=== PATIENT | female | born 1955 | race Caucasian/White ===

== ENCOUNTER 2016-11-17 21:18 | Observation (INO) | payer OTHER ==
[2016-11-17 21:18] VITALS: BMI 28.0
--- NOTE | 2016-11-17 22:43 | C.PDOC ---
History Of Present Illness 61 y/o female with PMHx of diabetes and ESRD, who is on dialysis, presents to ED with complaint of diffuse joint pain. Patient states that she typically uses a cream for her joint pains but is regularly uncomfortable despite doing so. Patient reports that her left knee hurt more than usual today with associated swelling. Denies trauma, rash, or fever. She notes that she is able to bend the knee with pain. Patient states she missed her dialysis treatment today due to leg pain. Time Seen by Provider: 11/17/16 22:31 Chief Complaint (Nursing): Lower Extremity Problem/Injury History Per: Patient History/Exam Limitations: no limitations Onset/Duration Of Symptoms: Hrs Current Symptoms Are (Timing): Still Present Recent travel outside of the [place]: No Past Medical History Reviewed: Historical Data, Nursing Documentation, Vital Signs Vital Signs: Last Vital Signs Temp 98.1 F 11/17/16 21:28 Pulse 65 11/18/16 01:04 Resp 18 11/18/16 01:04 BP 170/74 H 11/18/16 01:04 Pulse Ox 98 11/18/16 01:04 - Medical History PMH: Anemia, Asthma, Cardia Arrhythmia, Depression, Diabetes, Gastritis, HTN, Hypercholesterolemia, Hypothyroidism, End Stage Renal Disease, Chronic Kidney Disease, Sleep Apnea Surgical History: Cholecystectomy - [facility] Procedures DRAINAGE OF VULVA, OPEN APPROACH (11/05/15) EXCIS DEBRIDE OF WOUND, INFECT, OR BURN (11/09/14) HEMODIALYSIS (11/09/14) INCIS PERIANAL ABSCESS (11/09/14) PERFORMANCE OF URINARY FILTRATION, MULTIPLE (05/16/16) PERFORMANCE OF URINARY FILTRATION, SINGLE (04/04/16) Family History: States: Unknown Family Hx, Diabetes - Social History Hx Tobacco Use: No Hx Alcohol Use: No Hx Substance Use: No - Immunization History Hx Tetanus Toxoid Vaccination: Yes Hx Influenza Vaccination: Yes (2015) Hx Pneumococcal Vaccination: Yes (2016) Review Of Systems Except As Marked, All Systems Reviewed And Found Negative. Constitutional: Negative for: Fever, Chills Cardiovascular: Negative for: Chest Pain Respiratory: Negative for: Cough, Shortness of Breath, Wheezing Musculoskeletal: Positive for: Other (Left knee pain) Skin: Negative for: Rash Neurological: Negative for: Weakness, Numbness Physical Exam - Physical Exam Appears: Non-toxic, No Acute Distress Skin: Warm, Dry, No Rash Head: Atraumatic, Normacephalic Chest: Symmetrical Cardiovascular: Rhythm Regular Respiratory: Normal Breath Sounds, No Rales, No Rhonchi, No Wheezing Gastrointestinal/Abdominal: Soft, No Tenderness Back: Normal Inspection Extremity: Capillary Refill (< 2 sec. ), No Deformity, Swelling (L knee), Other (Arthritic changes to bilateral knees. (+) Suprapatellar effusion left knee. Left knee skin is dry, yellowish color, no rash.) Neurological/Psych: Oriented x3, Normal Speech, Normal Cognition, Normal Motor, Normal Sensation ED Course And Treatment - Laboratory Results Result Diagrams: 11/17/16 23:37 11/17/16 23:37 Lab Interpretation: Abnormal (Elevated K+5.3 with BUN 66, Cr 7.6) O2 Sat by Pulse Oximetry: 99 (RA) Pulse Ox Interpretation: Normal - Other Rad Left knee X-Ray: Interpreted by Me Interpretation: Degenerative arthritic changes with large suprapatellar effusion Progress Note: Bloodwork, Left knee x-rays ordered and reviewed. Reevaluation Time: 00:41 Reassessment Condition: Unchanged - Physician Consult Information Time Consulting Physician Contacted: 00:39 Physician Contacted: Giacomo Thorne Outcome Of Conversation: Patient to be admitted for dialysis and evaluation of knee effusion. Disposition - Disposition Disposition: HOSPITALIZED Disposition Time: 00:41 Condition: STABLE - POA Present On Arrival: None - Clinical Impression Clinical Impression: ESRD on hemodialysis, Knee effusion, left, Arthritis - Scribe Statement The provider has reviewed the documentation as recorded by the Barry Dupree Provider Attestation: Provider Scribe Attestation: All medical record entries made by the Barry were at my direction and personally dictated by me. I have reviewed the chart and agree that the record accurately reflects my personal performance of the history, physical exam, medical decision making, and the department course for this patient. I have also personally directed, reviewed, and agree with the discharge instructions and disposition.
[2016-11-17 23:39] LABS: BASO # 0.1 K/uL (0.0-0.2); EOS # 0.4 K/uL (0.0-0.7); EOS % 3.8 % (0.0-4.0); HEMATOCRIT 31.7 % (34.0-47.0); LYMPH # 2.1 K/uL (1.0-4.3); LYMPH % 22.2 % (20.0-40.0); MEAN CELL VOLUME 86.9 fL (81.0-99.0); MEAN CORPUSCULAR HGB CONC 32.3 g/dL (33.0-37.0); MEAN PLATELET VOLUME 9.9 fL (7.2-11.7); MONO # 0.7 K/uL (0.0-0.8); MONO % 7.7 % (0.0-10.0); RED CELL DISTRIBUTION WIDTH 15.3 % (11.5-14.5)
[2016-11-17 23:44] LABS: WHITE BLOOD COUNT 9.4 K/uL (4.8-10.8)
[2016-11-17 23:58] LABS: POTASSIUM 5.3 mmol/L (3.6-5.2)
[2016-11-18] LABS: BILIRUBIN,TOTAL 0.6 mg/dL (0.2-1.3)
[2016-11-18 00:01] LABS: ALB/GLOB RATIO 1.1 (1.0-2.1); CALCIUM 9.1 mg/dl (8.6-10.4); TOTAL PROTEIN 7.4 g/dL (6.3-8.3)
--- NOTE | 2016-11-18 03:40 | CP.PCM.HP ---
<Raven Salazar - Last Filed: 11/18/16 03:28> History of Present Illness - History of Present Illness History of Present Illness: CC: "L knee pain" HPI: Patient is a 61F with medical history of ESRD on HD who presents to the ED complaining of L knee pain and swelling. Patient states she has suffered from bilateral shoulder and knee pain for 3-4 months which has become increasingly more severe. Patient reports new onset left knee swelling this afternoon and associated 8/10 pain disabling her from ambulating. Patient denies any trauma to the area. She typically walks without assistance but admits to difficulty with mobility and inability to use a cane due to limited range of motion to upper extremities and weakness to right side following CVA. Due to inability to walk, patient missed hemodialysis today. Her regular dialysis schedule is [facility]. She denies fever, chills, chest pain, shortness of breath, abdominal pain, nausea, vomiting, constipation, diarrhea, and urinary symptoms. Patient admits to weakness following dialysis. She also states she has loss of appetite and has lost over 100 pounds in the past year. PMD: cannot recall Spool Maker: Dr. Umberto Pina PMH: ESRD on HD, chronic shoulder and knee pain, DMII, HTN, CVA with R hemiparesis, CAD, HLD, Hypothyroidism, Asthma, Sleep Apnea Medications: Norvasc 5 mg po qd, Lisinopril 20 mg po daily, Hydralazine 50 mg po TID, Carvedilol 12.5 mg po BID, Isosorbide 60 mg po 0900, Minoxidil 2.5 mg po 0900, 2200, ASA 81 mg po daily, Sevelamer 3 mg po TID, Levothyroxine 100 mcg po daily, Monteleukast 1 mg po daily, Omeprazole 40 mg po daily Family Hx: Mother - on [place] in 40s Surgical Hx: L arm fistula, cholecystectomy, total abdominal hysterectomy and b/ l oopherectomy Social: Never smoker. Denies alcohol and illicit drug use. Present on Admission - Present on Admission Any Indicators Present on Admission: No History of DVT/PE: No History of Uncontrolled Diabetes: Yes Urinary Catheter: No Decubitus Ulcer Present: No Review of Systems - Constitutional Constitutional: Weight Loss, Weakness. absent: Chills, Fever - EENT Eyes: absent: Change in Vision Nose/Mouth/Throat: absent: Nasal Congestion, Post Nasal Drip, Dysphagia - Cardiovascular Cardiovascular: absent: Chest Pain, Dyspnea, Leg Edema - Respiratory Respiratory: Snoring. absent: Dyspnea, Dyspnea on Exertion, Wheezing - Gastrointestinal Gastrointestinal: Heartburn. absent: Abdominal Pain, Bloating, Constipation, Diarrhea, Melena, Nausea, Vomiting - Genitourinary Genitourinary: absent: Change in Urinary Stream, Dysuria - Musculoskeletal Musculoskeletal: Arthralgias, Joint Swelling, Muscle Cramps - Integumentary Integumentary: absent: Changing Lesions, New Lesions - Neurological Neurological: Weakness. absent: Paresthesias - Psychiatric Psychiatric: Depression. absent: Anxiety Past Patient History - Infectious Disease Hx of Infectious Diseases: None - Tetanus Immunizations Tetanus Immunization: Unknown - Past Medical History & Family History Past Medical History?: Yes - Past Social History Smoking Status: Never Smoked - CARDIAC Hx Cardia Arrhythmia: Yes Hx Hypercholesterolemia: Yes Hx Hypertension: Yes - PULMONARY Hx Asthma: Yes Hx Sleep Apnea: Yes - NEUROLOGICAL Hx Neurological Disorder: Yes HX Cerebrovascular Accident: Yes (CVA c R hemiparesis 2010) - HEENT Hx HEENT Problems: Yes Other/Comment: uses eyeglasses - RENAL Hx Chronic Kidney Disease: Yes - ENDOCRINE/METABOLIC Hx Hypothyroidism: Yes - HEMATOLOGICAL/ONCOLOGICAL Hx Anemia: Yes - INTEGUMENTARY Hx Dermatological Problems: No - MUSCULOSKELETAL/RHEUMATOLOGICAL Hx Falls: No - GASTROINTESTINAL Hx Gastritis: Yes - GENITOURINARY/GYNECOLOGICAL Hx Genitourinary Disorders: No (She has MERCEDEZ BSO) Other/Comment: ESRD - PSYCHIATRIC Hx Depression: Yes Hx Substance Use: No - SURGICAL HISTORY Hx Cholecystectomy: Yes - ANESTHESIA Hx Anesthesia: Yes Hx Anesthesia Reactions: No Hx Malignant Hyperthermia: No Meds Allergies/Adverse Reactions: Allergies Allergy/AdvReac Type Severity Reaction Status Date / Time No Known Allergies Allergy Verified 05/19/16 18:03 Physical Exam - Constitutional Appears: Non-toxic, No Acute Distress - Head Exam Head Exam: ATRAUMATIC, NORMAL INSPECTION, NORMOCEPHALIC - Eye Exam Eye Exam: EOMI, Normal appearance, PERRL - ENT Exam ENT Exam: Mucous Membranes Moist - Neck Exam Neck exam: Positive for: Normal Inspection, Tenderness - Respiratory Exam Respiratory Exam: Clear to Auscultation Bilateral, NORMAL BREATHING PATTERN. absent: Accessory Muscle Use, Rales, Rhonchi, Wheezes - Cardiovascular Exam Cardiovascular Exam: +S1, +S2, Systolic Murmur. absent: Tachycardia - GI/Abdominal Exam GI & Abdominal Exam: Normal Bowel Sounds, Soft. absent: Distended, Firm, Guarding - Extremities Exam Extremities exam: Positive for: tenderness, pedal pulses present Additional comments: right sided weakness L suprapatellar pain to palpation and edema, limited ROM - Back Exam Back exam: NORMAL INSPECTION, tenderness - Neurological Exam Neurological exam: Alert, Oriented x3 - Psychiatric Exam Psychiatric exam: Normal Affect, Normal Mood - Skin Skin Exam: Intact, Normal Color Results - Vital Signs Recent Vital Signs: Last Vital Signs Temp 97.9 F 11/18/16 02:37 Pulse 66 11/18/16 02:37 Resp 20 11/18/16 02:37 BP 169/97 H 11/18/16 02:37 Pulse Ox 98 11/18/16 02:37 - Labs Result Diagrams: 11/17/16 23:37 11/17/16 23:37 Assessment & Plan - Assessment and Plan (Free Text) Assessment: 1. ESRD on hemodialysis, missed today Potassium 5.3 BUN/CR 66/7.9 Schedule for HD tomorrow Consulted Spool Maker, Dr. Pina, help appreciated 2. L Suprapatellar Effusion L Knee X-RAY: Degenerative arthritic changes with large suprapatellar effusion Tylenol 650 mg po PRN for pain Consulted Othropedic, Dr. Bolivar. Help appreciated. f/u recs 3. DMII f/u hemoglobin a1c RISS Accuchecks Monitor sugar 4. CAD Continue home medications: Carvidolol 12.5 mg po BID ASA 81 mg po daily Lisinopril 20 mg po daily Isosorbide mononitrate 60 mg po 0900 f/u lipid panel 5. Hypertension Continue home medications: Hydralazine 50 mg po TID Norvasc 5 mg po daily Minoxidil 2.5 mg po 0900,2200 Monitor 6. Hypothyroidism Continue home medication Levothyroxine 100 mcg po daily f/u TSH, T4 7. Asthma Continue home medication Monteleukast Duoneb RQH PRN for shortness of breath 8. GERD Protonix 40 mg po daily 9. Sleep Apnea CPAP at night 10. Prophylaxis SCD Protonix Heparin 5000 U SC Q12 - Date & Time Date: 11/18/16 Time: 04:04 <Giacomo Thorne - Last Filed: 11/18/16 06:38> Results - Vital Signs Recent Vital Signs: Last Vital Signs Temp 97.9 F 11/18/16 02:37 Pulse 66 11/18/16 02:37 Resp 20 11/18/16 03:46 BP 169/97 H 11/18/16 02:37 Pulse Ox 98 11/18/16 02:37 - Labs Result Diagrams: 11/17/16 23:37 11/17/16 23:37 Assessment & Plan - Date & Time Date: 11/18/16 (I have seen and examined the patient. I agree with the findings and plan of care as documented by Dr. Salazar. Patient with ESRD dependent upon dialysis. Missed scheduled dialysis due to knee pain coming from left knee effusion. Consult ortho. Consult nephro for dialysis. Monitor for acute changes.) Time: 06:37 Attending/Attestation - Attestation I have personally seen and examined this patient.: Yes I have fully participated in the care of the patient.: Yes I have reviewed all pertinent clinical information: Yes
[2016-11-18] MEDS: Levothyroxine 100 MCG TAB PO SCH (05:46)
[2016-11-18 08:08] LABS: BASO # 0.1 K/uL (0.0-0.2); BASO % 1.2 % (0.0-2.0); EOS # 0.5 K/uL (0.0-0.7); EOS % 4.1 % (0.0-4.0); HEMATOCRIT 29.3 % (34.0-47.0); LYMPH # 3.6 K/uL (1.0-4.3); MEAN CELL VOLUME 86.6 fL (81.0-99.0); MEAN CORPUSCULAR HEMOGLOBIN 27.9 pg (27.0-31.0); MEAN CORPUSCULAR HGB CONC 32.3 g/dL (33.0-37.0); MEAN PLATELET VOLUME 10.7 fL (7.2-11.7); MONO # 0.9 K/uL (0.0-0.8); MONO % 8.2 % (0.0-10.0); NRBC % 0.2 % (0.0-2.0); RED CELL DISTRIBUTION WIDTH 15.3 % (11.5-14.5); WHITE BLOOD COUNT 11.3 K/uL (4.8-10.8)
[2016-11-18 08:17] LABS: POTASSIUM 5.2 mmol/L (3.6-5.2)
--- NOTE | 2016-11-18 08:17 | CP.PCM.CON ---
History of Present Illness - History of Present Illness History of Present Illness: 61F complains of acute onset of left knee pain and swelling a few days ago. She had not had swelling like this is her knee before. She denies any history of gout. She denies any recent trauma or falls or injury to left knee. She has chronic pain in her shoulders and knees, but never like this before. She has right sided weakness from CVA. Denies fever/chills. Denies CP/SOB/dizziness. Denies swelling in other joints. Review of Systems - Review of Systems All systems: reviewed and no additional remarkable complaints except - Constitutional Constitutional: As Per HPI - EENT Additional comments: denies nosebleeds or bleeding gums - Cardiovascular Cardiovascular: As Per HPI - Respiratory Respiratory: As Per HPI - Gastrointestinal Additional comments: denies n/v/bloody stools - Musculoskeletal Musculoskeletal: As Per HPI - Integumentary Additional comments: no bleeding lesions - Neurological Neurological: As Per HPI - Psychiatric Psychiatric: Depression - Hematologic/Lymphatic Hematologic: absent: As Per HPI, Easy Bleeding, Easy Bruising, Lymphadenopathy, Other Past Patient History - Infectious Disease Hx of Infectious Diseases: None - Tetanus Immunizations Tetanus Immunization: Unknown - Past Medical History & Family History Past Medical History?: Yes Past Family History: Reviewed and not pertinent - Past Social History Smoking Status: Never Smoked Drugs: Denies - CARDIAC Hx Cardia Arrhythmia: Yes Hx Hypercholesterolemia: Yes Hx Hypertension: Yes - PULMONARY Hx Asthma: Yes Hx Sleep Apnea: Yes - NEUROLOGICAL Hx Neurological Disorder: Yes HX Cerebrovascular Accident: Yes (CVA c R hemiparesis 2010) - HEENT Hx HEENT Problems: Yes Other/Comment: uses eyeglasses - RENAL Hx Chronic Kidney Disease: Yes Hx Dialysis: Yes Hx Renal Failure: Yes (ESRD) - ENDOCRINE/METABOLIC Hx Hypothyroidism: Yes - HEMATOLOGICAL/ONCOLOGICAL Hx Anemia: Yes - INTEGUMENTARY Hx Dermatological Problems: No - MUSCULOSKELETAL/RHEUMATOLOGICAL Hx Arthritis: Yes Hx Falls: No - GASTROINTESTINAL Hx Gastritis: Yes - GENITOURINARY/GYNECOLOGICAL Hx Genitourinary Disorders: No (She has MERCEDEZ BSO) Other/Comment: ESRD - PSYCHIATRIC Hx Depression: Yes Hx Substance Use: No - SURGICAL HISTORY Hx Surgeries: Yes Hx Cholecystectomy: Yes Hx Hysterectomy: Yes Hx Vascular Access Device: Yes (L arm fistula) - ANESTHESIA Hx Anesthesia: Yes Hx Anesthesia Reactions: No Hx Malignant Hyperthermia: No Meds Allergies/Adverse Reactions: Allergies Allergy/AdvReac Type Severity Reaction Status Date / Time No Known Allergies Allergy Verified 05/19/16 18:03 - Medications Medications: Current Medications Acetaminophen (Tylenol 325mg Tab) 650 mg PO Q6 PRN PRN Reason: Pain, moderate (4-7) Last Admin: 11/18/16 05:46 Dose: 650 mg Amlodipine Besylate (Norvasc) 5 mg PO DAILY [facility] Aspirin (Aspirin Chewable) 81 mg PO DAILY [facility] Carvedilol (Coreg) 12.5 mg PO BID [facility] Heparin Sodium (Porcine) (Heparin) 5,000 units SC Q12 [facility] Hydralazine HCl (Apresoline) 50 mg PO TID [facility] Insulin Human Regular (Novolin R) 0 unit SC ACHS [facility] PRN Reason: Protocol Isosorbide Mononitrate (Imdur) 60 mg PO 0900 [facility] Levothyroxine Sodium (Synthroid) 100 mcg PO DAILY@0630 [facility] Last Admin: 11/18/16 05:46 Dose: 100 mcg Lisinopril (Zestril) 20 mg PO DAILY [facility] Minoxidil (Minoxidil) 2.5 mg PO 0900,2200 [facility] Montelukast Sodium (Singulair) 10 mg PO DAILY [facility] Pantoprazole Sodium (Protonix Ec Tab) 40 mg PO DAILY [facility] Sevelamer Carbonate (Renvela) 3 mg PO TID [facility] Physical Exam - Constitutional Appears: Well, No Acute Distress - Head Exam Head Exam: ATRAUMATIC, NORMAL INSPECTION - Eye Exam Eye Exam: Normal appearance - ENT Exam ENT Exam: Mucous Membranes Moist - Neck Exam Neck exam: Positive for: Full Rom, Normal Inspection - Respiratory Exam Respiratory Exam: NORMAL BREATHING PATTERN - Cardiovascular Exam Additional comments: LLE: +DP/PT pulses calves soft NT neg homans - Extremities Exam Additional comments: Limited ROM due to pain > 40 degrees flexion left knee, sig valgus alignment - Expanded Lower Extremities Exam Left Hip exam: full ROM, normal inspection Knee exam: effusion, full knee extension, tenderness. absent: abrasion, anterior draw sign, crepitus, deformity, dislocation, ecchymosis, erythema, full ROM, laceration, pain/laxity with valgus, pain/laxity with varus, posterior draw sign, swelling, normal inspection Lower Leg Exam: normal inspection. absent: deformity, Dhara's sign, swelling, tenderness Ankle exam: FULL ROM, NORMAL INSPECTION Neuro vacular tendon exam: no vascular compromise Gait: not tested/not observed - Neurological Exam Neurological exam: Alert, Oriented x3 Additional comments: sensation intact - Psychiatric Exam Psychiatric exam: Normal Affect, Normal Mood - Skin Skin Exam: Intact, Normal Color Additional comments: No erythema Results - Vital Signs Recent Vital Signs: Last Vital Signs Temp 97.9 F 11/18/16 02:37 Pulse 66 11/18/16 02:37 Resp 20 11/18/16 03:46 BP 169/97 H 11/18/16 02:37 Pulse Ox 98 11/18/16 02:37 - Labs Result Diagrams: 11/18/16 08:00 11/18/16 08:00 Labs: Laboratory Results - last 24 hr 11/18/16 07:39 POC Glucose (mg/dL) 81 - Impressions Impression: atient Name / ID : ROSAS BOLES / [id number] Exam Date : 11/17/2016 22:35:33 ( Approved ) Study Comment : Sex / Age : F / 61Y Creator : Magui Stubbs V. Dictator : Magui Stubbs V. Profile Saw Operator : Physical Education Specialist : Magui Stubbs V. Approver2 : Report Date : 11/18/2016 08:29:37 My Comment : PROCEDURE: Left Knee Radiographs. HISTORY: Pain. COMPARISON: None. FINDINGS: BONES: No fracture. Generalized osteopenia. Tricompartmental joint space narrowing - lateral femoral tibial compartment most notably affected. Here, diffuse subchondral cystic changes and few were tibial plateau subchondral sclerosis suggested. Diffuse osteophytosis. Varus orientation JOINTS: Osteoarthrosis JOINT EFFUSION: Yes OTHER FINDINGS: Atherosclerotic vascular calcifications IMPRESSION: Osteopenia, osteoarthrosis and joint effusion. Atherosclerotic vascular disease Procedures - Joint Aspiration/Injection Joint #1 Consent Obtained: Verbal Consent Time Out Performed: Yes Side of Body: Left Joint Aspirated: Knee Ultrasound Guidance Used: No Skin Prep: Chlorprep Local Anesthesia Used: Other (none) Needle Size Used: Other (21g 1 1/2 in) Fluid Clarity: Bloody Total Fluid Removed (mls): 15 Patient Tolorated Procedure: Well Complications: None Additional comments: Knee arthrocentesis: Risks, benefits, alternatives of knee arthrocentesis and aspiration were explained in detail, patient verbally consented to procedure. The patient's left knee was prepped in the usual sterile fashion with chloroprep. A 21-gauge 1.5 inch needle was inserted into the knee joint from a superior lateral approach. Through this needle 15 cc of dark bloody fluid was aspirated, and sent for stat cell count, crystals, gram stain, culture and sensitivity. The needle was removed, and sterile dressing, indigo bandage, and ice were applied to knee. Patient tolerated the procedure well. There were no complications. Assessment/Plan - Consults Consult Orders: Consultations 11/18/16 08:00 Nursing Referral for Palliative Care Routine Comment: Physician Instructions: Reason For Exam: score - 4 - Problems Patient Problems: Problem List (Active/Current) Problem Status Priority Diagnosed Code Arthritis Acute M19.90 ESRD on hemodialysis Acute N18.6 Knee effusion, left Acute M25.462 Assessment and Plan (1) Knee effusion, left Assessment & Plan: 1. Left knee acute effusion 2. SEVERE left knee DJD 3. Left knee valgus deformity labs reviewed, no leukocytosis or fever, serum uric acid nL normal platelets and PT/PTT no blood thinners at home unclear etiology of bloody fluid, clean tap r/o gout/infection/OA exacerbation/occult injury (however patient denies trauma or falls)/hemarthrosis f/u aspirate results d/w Dr. Bolivar, agrees with above Status: Acute
[2016-11-18 08:20] LABS: BILIRUBIN,TOTAL 0.6 mg/dL (0.2-1.3); CALCIUM 8.7 mg/dl (8.6-10.4); PHOSPHOROUS 5.4 mg/dL (2.5-4.5); TOTAL PROTEIN 6.7 g/dL (6.3-8.3)
[2016-11-18 08:21] LABS: IRON 123 ug/dL (37-170); MAGNESIUM 2.4 mg/dL (1.6-2.3)
--- NOTE | 2016-11-18 08:31 | RAD ---
PROCEDURE: Left Knee Radiographs. HISTORY: Pain. COMPARISON: None. FINDINGS: BONES: No fracture. Generalized osteopenia. Tricompartmental joint space narrowing -lateral femoral tibial compartment most notably affected. Here, diffuse subchondral cystic changes and few were tibial plateau subchondral sclerosis suggested. Diffuse osteophytosis. Varus orientation JOINTS: Osteoarthrosis JOINT EFFUSION: Yes OTHER FINDINGS: Atherosclerotic vascular calcifications IMPRESSION: Osteopenia, osteoarthrosis and joint effusion. Atherosclerotic vascular disease
[2016-11-18 08:38] LABS: T4 5.72 ug/dL (5.5-11.0)
[2016-11-18] MEDS: (Novolin R) Insulin Human Regular 100 units/ml vial SC SCH ×4 (08:50→21:39)
[2016-11-18 08:51] LABS: THYROID STIMULATING HORMONE 5.01 mIU/L (0.46-4.68)
[2016-11-18 08:59] LABS: FLUID TYPE SYNOVIAL FLUID
[2016-11-18 09:26] LABS: FOLATE 16.8 ng/mL
--- NOTE | 2016-11-18 10:01 | CP.PCM.PN ---
<Jesús Bourne - Last Filed: 11/18/16 21:21> Subjective - Date & Time of Evaluation Date of Evaluation: 11/18/16 Time of Evaluation: 07:15 - Subjective Subjective: PGY1 Medicine Note - Dr. Schilling (covering for Dr. Teresa) Patient seen and examined at bedside. No overnight events per nursing. Patient reports 8/10 left knee pain. Denies recent trauma to left knee. Reports chronic pain in her shoulders and knees. Reports right sided weakness from CVA. Pt reports BP drops during dialysis, so she holds her BP meds on those days. Dialysis typically 3.5hrs long. Denies f/c, chest pain, SOB, abdominal pain, n/v , d/c, or any additional complaints. Objective - Vital Signs/Intake and Output Vital Signs (last 24 hours): Temp Pulse Resp BP Pulse Ox 97.5 F L 65 20 190/84 H 99 11/18/16 08:00 11/18/16 08:00 11/18/16 08:00 11/18/16 08:00 11/18/16 08:00 Intake and Output: 11/18/16 11/18/16 06:59 18:59 Intake Total 400 Balance 400 - Medications Medications: Current Medications Acetaminophen (Tylenol 325mg Tab) 650 mg PO Q6 PRN PRN Reason: Pain, moderate (4-7) Last Admin: 11/18/16 05:46 Dose: 650 mg Amlodipine Besylate (Norvasc) 5 mg PO DAILY [facility] Aspirin (Aspirin Chewable) 81 mg PO DAILY [facility] Carvedilol (Coreg) 12.5 mg PO BID [facility] Heparin Sodium (Porcine) (Heparin) 5,000 units SC Q12 [facility] Hydralazine HCl (Apresoline) 50 mg PO TID [facility] Insulin Human Regular (Novolin R) 0 unit SC ACHS [facility] PRN Reason: Protocol Last Admin: 11/18/16 08:50 Dose: Not Given Isosorbide Mononitrate (Imdur) 60 mg PO 0900 [facility] Levothyroxine Sodium (Synthroid) 100 mcg PO DAILY@0630 [facility] Last Admin: 11/18/16 05:46 Dose: 100 mcg Lisinopril (Zestril) 20 mg PO DAILY [facility] Minoxidil (Minoxidil) 2.5 mg PO 0900,2200 [facility] Montelukast Sodium (Singulair) 10 mg PO DAILY [facility] Pantoprazole Sodium (Protonix Ec Tab) 40 mg PO DAILY [facility] Sevelamer Carbonate (Renvela) 2,400 mg PO TID [facility] - Labs Labs: 11/18/16 08:00 11/18/16 08:00 PT 10.9 SECONDS (9.7-12.2) 11/18/16 00:49 INR 1.0 11/18/16 00:49 APTT 32 SECONDS (21-34) 11/18/16 00:49 - Additional Findings Additional findings: - Constitutional Appears: Non-toxic, No Acute Distress - Head Exam Head Exam: ATRAUMATIC, NORMAL INSPECTION, NORMOCEPHALIC - Eye Exam Eye Exam: EOMI, Normal appearance, PERRL - ENT Exam ENT Exam: Mucous Membranes Moist - Neck Exam Neck exam: Positive for: Normal Inspection, Tenderness - Respiratory Exam Respiratory Exam: Clear to Auscultation Bilateral, NORMAL BREATHING PATTERN. absent: Accessory Muscle Use, Rales, Rhonchi, Wheezes - Cardiovascular Exam Cardiovascular Exam: +S1, +S2, Systolic Murmur. absent: Tachycardia - GI/Abdominal Exam GI & Abdominal Exam: Normal Bowel Sounds, Soft. absent: Distended, Firm, Guarding - Extremities Exam Extremities exam: Positive for: tenderness, pedal pulses present Additional comments: right sided weakness (from CVA) L suprapatellar pain to palpation and edema, limited ROM - Back Exam Back exam: NORMAL INSPECTION, tenderness - Neurological Exam Neurological exam: Alert, Oriented x3 - Psychiatric Exam Psychiatric exam: Normal Affect, Normal Mood - Skin Skin Exam: Intact, Normal Color Assessment and Plan - Assessment and Plan (Free Text) Assessment: 1. ESRD 11/18: received HD today. HD Schedule MWF- missed 11/17 Potassium 5.3 BUN/CR 66/7.9 Consulted [employer] Systems Analyst Consultant, Dr. Pina, help appreciated 2. L Suprapatellar Effusion L Knee X-RAY: Degenerative arthritic changes with large suprapatellar effusion Tylenol 650 mg po PRN for pain Consulted Othropedic, Dr. Bolivar. Help appreciated. f/u recs gram stain few WBC and no organisms fluid cell count WBC 2561 77% polys RBC [id number] negative crystals not consistent with infection or gout consistent with hemarthrosis, unclear etiology no orthopedic intervention indicated at this time PT/OT 11/19 (limit weight bearing due to pain at this time) f/u cultures 3. DMII hemoglobin a1c - 6.6 RISS Accuchecks Monitor sugar 4. CAD Continue home medications: Carvidolol 12.5 mg po BID ASA 81 mg po daily Lisinopril 20 mg po daily Isosorbide mononitrate 60 mg po 0900 f/u lipid panel - triglyc 271H, Cholest 132, LDL45, HDL25 5. Hypertension Continue home medications: Hydralazine 50 mg po TID Norvasc 5 mg po daily Minoxidil 2.5 mg po 0900,2200 [facility] 6. Hypothyroidism Continue home medication Levothyroxine 100 mcg po daily f/u TSH 5H, T4 5.72 N 7. Asthma Continue home medication Monteleukast Duoneb RQH PRN for shortness of breath 8. GERD Protonix 40 mg po daily 9. Sleep Apnea CPAP at night 10. Prophylaxis SCD Protonix Heparin 5000 U SC Q12 <Morgan Schilling - Last Filed: 12/14/16 22:12> Objective - Vital Signs/Intake and Output Vital Signs (last 24 hours): Temp Pulse Resp BP Pulse Ox 97.8 F 70 20 180/79 H 99 11/19/16 17:00 11/19/16 17:00 11/19/16 17:00 11/19/16 17:10 11/19/16 17:00 - Labs Labs: 11/19/16 07:40 11/19/16 07:40 PT 10.9 SECONDS (9.7-12.2) 11/18/16 00:49 INR 1.0 11/18/16 00:49 APTT 32 SECONDS (21-34) 11/18/16 00:49 Attending/Attestation - Attestation I have personally seen and examined this patient.: Yes I have fully participated in the care of the patient.: Yes I have reviewed all pertinent clinical information, including history, physical exam and plan: Yes
[2016-11-18 10:17] LABS: SYNOVIAL FLUID TOTAL COUNT 100 (0-0)
[2016-11-18] MEDS: Pantoprazole 40 mg EC Tab PO SCH (10:18)
--- NOTE | 2016-11-18 12:01 | CP.PCM.CON ---
History of Present Illness - History of Present Illness History of Present Illness: 61 y/o female with ESRD on maintenance HD every MWF via Lt arm AVG, HTNmold CVA , DM prented to ER for c/o severe pain & swelling of Lt knee Was found to have lt kneee effusion which was drained. Pt had missed dialysis yesterday because of knee pain Nn C/o sob, palp.dizziness Past Patient History - Infectious Disease Hx of Infectious Diseases: None - Tetanus Immunizations Tetanus Immunization: Unknown - Past Medical History & Family History Past Medical History?: Yes - Past Social History Smoking Status: Never Smoked - CARDIAC Hx Cardia Arrhythmia: Yes Hx Hypercholesterolemia: Yes Hx Hypertension: Yes - PULMONARY Hx Asthma: Yes Hx Sleep Apnea: Yes - NEUROLOGICAL Hx Neurological Disorder: Yes HX Cerebrovascular Accident: Yes (CVA c R hemiparesis 2010) - HEENT Hx HEENT Problems: Yes Other/Comment: uses eyeglasses - RENAL Hx Chronic Kidney Disease: Yes Hx Dialysis: Yes Type of Dialysis Access: . Lt AVG - ENDOCRINE/METABOLIC Hx Hypothyroidism: Yes - HEMATOLOGICAL/ONCOLOGICAL Hx Anemia: Yes - INTEGUMENTARY Hx Dermatological Problems: No - MUSCULOSKELETAL/RHEUMATOLOGICAL Hx Falls: No - GASTROINTESTINAL Hx Gastritis: Yes - GENITOURINARY/GYNECOLOGICAL Hx Genitourinary Disorders: No (She has MERCEDEZ BSO) Other/Comment: ESRD - PSYCHIATRIC Hx Depression: Yes Hx Substance Use: No - SURGICAL HISTORY Hx Cholecystectomy: Yes - ANESTHESIA Hx Anesthesia: Yes Hx Anesthesia Reactions: No Hx Malignant Hyperthermia: No Meds Allergies/Adverse Reactions: Allergies Allergy/AdvReac Type Severity Reaction Status Date / Time No Known Allergies Allergy Verified 05/19/16 18:03 - Medications Medications: Current Medications Acetaminophen (Tylenol 325mg Tab) 650 mg PO Q6 PRN PRN Reason: Pain, moderate (4-7) Last Admin: 11/18/16 05:46 Dose: 650 mg Amlodipine Besylate (Norvasc) 5 mg PO DAILY [facility] Last Admin: 11/18/16 10:24 Dose: Not Given Aspirin (Aspirin Chewable) 81 mg PO DAILY [facility] Last Admin: 11/18/16 10:18 Dose: 81 mg Carvedilol (Coreg) 12.5 mg PO BID [facility] Last Admin: 11/18/16 10:20 Dose: 12.5 mg Heparin Sodium (Porcine) (Heparin) 5,000 units SC Q12 [facility] Last Admin: 11/18/16 10:16 Dose: 5,000 units Hydralazine HCl (Apresoline) 50 mg PO TID [facility] Last Admin: 11/18/16 10:23 Dose: Not Given Insulin Human Regular (Novolin R) 0 unit SC ACHS [facility] PRN Reason: Protocol Last Admin: 11/18/16 08:50 Dose: Not Given Isosorbide Mononitrate (Imdur) 60 mg PO 0900 [facility] Last Admin: 11/18/16 10:17 Dose: 60 mg Levothyroxine Sodium (Synthroid) 100 mcg PO DAILY@0630 [facility] Last Admin: 11/18/16 05:46 Dose: 100 mcg Lisinopril (Zestril) 20 mg PO DAILY [facility] Last Admin: 11/18/16 10:25 Dose: Not Given Minoxidil (Minoxidil) 2.5 mg PO 0900,2200 [facility] Last Admin: 11/18/16 10:24 Dose: Not Given Montelukast Sodium (Singulair) 10 mg PO DAILY [facility] Last Admin: 11/18/16 10:18 Dose: 10 mg Pantoprazole Sodium (Protonix Ec Tab) 40 mg PO DAILY [facility] Last Admin: 11/18/16 10:18 Dose: 40 mg Sevelamer Carbonate (Renvela) 2,400 mg PO TID [facility] Last Admin: 11/18/16 10:16 Dose: 2,400 mg Physical Exam - Constitutional Appears: No Acute Distress - Head Exam Head Exam: ATRAUMATIC, NORMOCEPHALIC - Eye Exam Eye Exam: Normal appearance - ENT Exam ENT Exam: Mucous Membranes Moist - Neck Exam Additional comments: neck supple - Respiratory Exam Additional comments: Lungs clear - Cardiovascular Exam Cardiovascular Exam: REGULAR RHYTHM - GI/Abdominal Exam GI & Abdominal Exam: Soft Additional comments: No tenderness - Extremities Exam Additional comments: No edema Results - Vital Signs Recent Vital Signs: Last Vital Signs Temp 97.5 F L 11/18/16 08:00 Pulse 65 11/18/16 08:00 Resp 20 11/18/16 08:00 BP 172/78 H 11/18/16 10:20 Pulse Ox 99 11/18/16 08:00 - Labs Result Diagrams: 11/18/16 08:00 11/18/16 08:00 Labs: Laboratory Results - last 24 hr 0311/18/16 11/18/16 07:39 08:00 08:58 WBC 11.3 H RBC 3.39 L Hgb 9.5 L Hct 29.3 L MCV 86.6 MCH 27.9 MCHC 32.3 L RDW 15.3 H Plt Count 159 MPV 10.7 Neut % (Auto) 54.5 Lymph % (Auto) 32.0 [place] % (Auto) 8.2 Eos % (Auto) 4.1 H Baso % (Auto) 1.2 Neut # 6.1 Lymph # 3.6 [place] # 0.9 H Eos # 0.5 Baso # 0.1 Sodium 139 Potassium 5.2 Chloride 92 L Carbon Dioxide 28 Anion Gap 24 H BUN 66 H Creatinine 7.7 H* Est GFR ( Amer) 6 Est GFR (Non-Af Amer) 5 POC Glucose (mg/dL) 81 Random Glucose 90 Hemoglobin A1c 6.6 H Calcium 8.7 Phosphorus 5.4 H Magnesium 2.4 H Iron 123 TIBC 188 L % Saturation 66 H Total Bilirubin 0.6 AST 15 ALT 21 Alkaline Phosphatase 133 H D NT-Pro-B Natriuret Pep 8800 H Total Protein 6.7 Albumin 3.4 L Globulin 3.3 Albumin/Globulin Ratio 1.0 Triglycerides 271 H Cholesterol 132 LDL Cholesterol Direct 45 HDL Cholesterol 25 L Vitamin B12 873 Folate 16.8 Thyroxine (T4) 5.72 TSH 3rd Generation 5.01 H Fluid Type Synovial fluid Fluid Crystals Negative Synovial WBC 2561.0 H Synovial RBC 3019164.0 H Synovial Neutrophils 77.0 H Synovial Lymphocytes 13.0 H Synov Monos/Macrophage 7 H Synovial Fluid Comment Assessment & Plan - Assessment and Plan (Free Text) Assessment: ESRD HD dependent HTN Lt knee effusion Plan: HD today Lt knee effusion no growth so far Labs reviewed
[2016-11-18 13:09] LABS: URIC ACID 4.6 mg/dL (2.2-7.5)
[2016-11-19] MEDS: Levothyroxine 100 MCG TAB PO SCH (06:13)
[2016-11-19 07:49] LABS: BASO # 0.1 K/uL (0.0-0.2); BASO % 1.1 % (0.0-2.0); EOS # 0.3 K/uL (0.0-0.7); EOS % 4.4 % (0.0-4.0); HEMATOCRIT 29.1 % (34.0-47.0); LYMPH # 2.4 K/uL (1.0-4.3); LYMPH % 32.1 % (20.0-40.0); MEAN CELL VOLUME 86.3 fL (81.0-99.0); MEAN CORPUSCULAR HEMOGLOBIN 27.3 pg (27.0-31.0); MEAN CORPUSCULAR HGB CONC 31.6 g/dL (33.0-37.0); MEAN PLATELET VOLUME 10.2 fL (7.2-11.7); MONO # 0.7 K/uL (0.0-0.8); MONO % 10.1 % (0.0-10.0); RED CELL DISTRIBUTION WIDTH 15.8 % (11.5-14.5); WHITE BLOOD COUNT 7.4 K/uL (4.8-10.8)
[2016-11-19 07:58] LABS: POTASSIUM 4.5 mmol/L (3.6-5.2)
[2016-11-19 08:00] LABS: ALB/GLOB RATIO 1.1 (1.0-2.1); BILIRUBIN,TOTAL 0.4 mg/dL (0.2-1.3); PHOSPHOROUS 4.8 mg/dL (2.5-4.5); TOTAL PROTEIN 6.6 g/dL (6.3-8.3)
[2016-11-19 08:01] LABS: CALCIUM 8.6 mg/dl (8.6-10.4); MAGNESIUM 2.2 mg/dL (1.6-2.3)
[2016-11-19] MEDS: (Novolin R) Insulin Human Regular 100 units/ml vial SC SCH ×3 (08:30→17:12)
--- NOTE | 2016-11-19 09:58 | CP.PCM.PN ---
Subjective - Date & Time of Evaluation Date of Evaluation: 11/19/16 Time of Evaluation: 10:45 - Subjective Subjective: Patient states her knee is feeling better today. She says she is able to move it more. No new joint swelling. Denies CP/SOB/dizziness/N/V/numbness/tingling. Objective - Vital Signs/Intake and Output Vital Signs (last 24 hours): Temp Pulse Resp BP Pulse Ox 98.0 F 68 20 170/81 H 99 11/19/16 07:18 11/19/16 07:18 11/19/16 07:18 11/19/16 07:18 11/19/16 07:18 Intake and Output: 11/19/16 11/19/16 06:59 18:59 Intake Total 380 Balance 380 - Medications Medications: Current Medications Acetaminophen (Tylenol 325mg Tab) 650 mg PO Q6 PRN PRN Reason: Pain, moderate (4-7) Last Admin: 11/19/16 00:59 Dose: 650 mg Amlodipine Besylate (Norvasc) 5 mg PO DAILY [facility] Last Admin: 11/18/16 10:24 Dose: Not Given Aspirin (Aspirin Chewable) 81 mg PO DAILY [facility] Last Admin: 11/18/16 10:18 Dose: 81 mg Carvedilol (Coreg) 12.5 mg PO BID [facility] Last Admin: 11/18/16 19:13 Dose: 12.5 mg Heparin Sodium (Porcine) (Heparin) 5,000 units SC Q12 [facility] Last Admin: 11/18/16 21:39 Dose: 5,000 units Hydralazine HCl (Apresoline) 50 mg PO TID [facility] Last Admin: 11/18/16 19:13 Dose: 50 mg Insulin Human Regular (Novolin R) 0 unit SC ACHS [facility] PRN Reason: Protocol Last Admin: 11/19/16 08:30 Dose: Not Given Isosorbide Mononitrate (Imdur) 60 mg PO 0900 [facility] Last Admin: 11/18/16 10:17 Dose: 60 mg Levothyroxine Sodium (Synthroid) 100 mcg PO DAILY@0630 [facility] Last Admin: 11/19/16 06:13 Dose: 100 mcg Lisinopril (Zestril) 20 mg PO DAILY [facility] Last Admin: 11/18/16 10:25 Dose: Not Given Minoxidil (Minoxidil) 2.5 mg PO 0900,2200 [facility] Last Admin: 11/18/16 21:49 Dose: 2.5 mg Montelukast Sodium (Singulair) 10 mg PO DAILY [facility] Last Admin: 11/18/16 10:18 Dose: 10 mg Pantoprazole Sodium (Protonix Ec Tab) 40 mg PO DAILY [facility] Last Admin: 11/18/16 10:18 Dose: 40 mg Sevelamer Carbonate (Renvela) 2,400 mg PO TID [facility] Last Admin: 11/18/16 18:07 Dose: 2,400 mg - Labs Labs: 11/19/16 07:40 11/19/16 07:40 PT 10.9 SECONDS (9.7-12.2) 11/18/16 00:49 INR 1.0 11/18/16 00:49 APTT 32 SECONDS (21-34) 11/18/16 00:49 - Constitutional Appears: Well, No Acute Distress - Head Exam Head Exam: ATRAUMATIC, NORMAL INSPECTION - Eye Exam Eye Exam: Normal appearance - ENT Exam ENT Exam: Mucous Membranes Moist - Cardiovascular Exam Additional comments: +DP/PT pulses - Extremities Exam Additional comments: Calves sfot NT neg homans joint effusion to left knee, no increase overnight no erythema ROM 0-60 without pain sensation itnact - Neurological Exam Neurological Exam: Alert, Awake, Oriented x3 Neuro motor strength exam: Left Lower Extremity: 5 (5/5 ankle DF/PF, toes flex/ ext) - Psychiatric Exam Psychiatric exam: Normal Affect, Normal Mood - Skin Skin Exam: Dry, Intact, Normal Color, Warm Additional comments: no erythema Assessment and Plan - Assessment and Plan (Free Text) Assessment: Left knee hemarthrosis, no trauma Left knee severe DJD cultures neg x 24 hours no ortho intervention indicated at this time f/u final cultures d/w Dr. Bolivar, agrees with above patient to f/u in office DR. Bolivar as outpatient [phone] Review of Systems - Review of Systems Constitutional: no symptoms reported Eyes (ROS): no symptoms reported Ears, Nose, Mouth, Throat: no symptoms reported Respiratory: No Resp. distress Cardiology: no symptoms reported, see HPI Gastrointestinal/Abdominal: see HPI Genitourinary: no symptoms reported Musculoskeletal: see HPI Skin: no symptoms reported Neurological: no symptoms reported All Other Systems: Reviewed and Negative
[2016-11-19] MEDS: Pantoprazole 40 mg EC Tab PO SCH (10:02)
--- NOTE | 2016-11-19 11:51 | CP.PCM.PN ---
Subjective - Date & Time of Evaluation Date of Evaluation: 11/19/16 Time of Evaluation: 11:00 - Subjective Subjective: Feels better. Less pain in Lt knee Objective - Vital Signs/Intake and Output Vital Signs (last 24 hours): Temp Pulse Resp BP Pulse Ox 98.0 F 68 20 170/81 H 99 11/19/16 07:18 11/19/16 07:18 11/19/16 07:18 11/19/16 10:01 11/19/16 07:18 Intake and Output: 11/19/16 11/19/16 06:59 18:59 Intake Total 380 Balance 380 - Medications Medications: Current Medications Acetaminophen (Tylenol 325mg Tab) 650 mg PO Q6 PRN PRN Reason: Pain, moderate (4-7) Last Admin: 11/19/16 00:59 Dose: 650 mg Amlodipine Besylate (Norvasc) 5 mg PO DAILY [facility] Last Admin: 11/19/16 10:02 Dose: 5 mg Aspirin (Aspirin Chewable) 81 mg PO DAILY [facility] Last Admin: 11/19/16 10:03 Dose: 81 mg Carvedilol (Coreg) 12.5 mg PO BID [facility] Last Admin: 11/19/16 10:01 Dose: 12.5 mg Heparin Sodium (Porcine) (Heparin) 5,000 units SC Q12 [facility] Last Admin: 11/19/16 10:03 Dose: 5,000 units Hydralazine HCl (Apresoline) 50 mg PO TID [facility] Last Admin: 11/19/16 10:03 Dose: 50 mg Insulin Human Regular (Novolin R) 0 unit SC ACHS [facility] PRN Reason: Protocol Last Admin: 11/19/16 08:30 Dose: Not Given Isosorbide Mononitrate (Imdur) 60 mg PO 0900 [facility] Last Admin: 11/19/16 10:01 Dose: 60 mg Levothyroxine Sodium (Synthroid) 100 mcg PO DAILY@0630 [facility] Last Admin: 11/19/16 06:13 Dose: 100 mcg Lisinopril (Zestril) 20 mg PO DAILY [facility] Last Admin: 11/19/16 10:02 Dose: 20 mg Minoxidil (Minoxidil) 2.5 mg PO 0900,2200 [facility] Last Admin: 11/19/16 10:01 Dose: 2.5 mg Montelukast Sodium (Singulair) 10 mg PO DAILY [facility] Last Admin: 11/19/16 10:02 Dose: 10 mg Pantoprazole Sodium (Protonix Ec Tab) 40 mg PO DAILY [facility] Last Admin: 11/19/16 10:02 Dose: 40 mg Sevelamer Carbonate (Renvela) 2,400 mg PO TID [facility] Last Admin: 11/19/16 10:02 Dose: 2,400 mg - Labs Labs: 11/19/16 07:40 11/19/16 07:40 PT 10.9 SECONDS (9.7-12.2) 11/18/16 00:49 INR 1.0 11/18/16 00:49 APTT 32 SECONDS (21-34) 11/18/16 00:49 - Respiratory Exam Additional comments: Lungs clear - Cardiovascular Exam Cardiovascular Exam: REGULAR RHYTHM - Extremities Exam Additional comments: Swelling & bony deformity of Lt knee Assessment and Plan - Assessment and Plan (Free Text) Assessment: ESRD on maintenance HD Lt knee hemarthrosis. Culutures & Gram stain neg HTN Plan: Will schedule dialysis today to adjust her schedule to MWF stable on dialysis
[2016-11-19 17:19] VITALS: BP 104/56
[2016-11-19 17:32] VITALS: PULSE 70; RESP 20; TEMP 97.8; O2SAT 99
--- NOTE | 2016-11-19 18:04 | CP.PCM.DIS ---
<TaylaJesús - Last Filed: 11/20/16 23:55> Provider - Provider Date of Admission: 11/18/16 01:09 Attending physician: Giacomo Thorne MD Consults: Nephrology - Dr. Yovani Haile - Dr. Bolivar Time Spent in preparation of Discharge (in minutes): 35 Hospital Course - Lab Results Lab Results: Micro Results 11/18/16 08:14 Knee - Left Gram Stain - Preliminary 11/18/16 08:14 Knee - Left Wound Culture - Preliminary NO GROWTH AFTER 24 HOURS Most Recent Lab Values WBC 7.4 K/uL (4.8-10.8) 11/19/16 07:40 RBC 3.37 Mil/uL (3.80-5.20) L 11/19/16 07:40 Hgb 9.2 g/dL (11.0-16.0) L 11/19/16 07:40 Hct 29.1 % (34.0-47.0) L 11/19/16 07:40 MCV 86.3 fL (81.0-99.0) 11/19/16 07:40 MCH 27.3 pg (27.0-31.0) 11/19/16 07:40 MCHC 31.6 g/dL (33.0-37.0) L 11/19/16 07:40 RDW 15.8 % (11.5-14.5) H 11/19/16 07:40 Plt Count 152 K/uL (130-400) 11/19/16 07:40 MPV 10.2 fL (7.2-11.7) 11/19/16 07:40 Neut % (Auto) 52.3 % (50.0-75.0) 11/19/16 07:40 Lymph % (Auto) 32.1 % (20.0-40.0) 11/19/16 07:40 Hamlin % (Auto) 10.1 % (0.0-10.0) H 11/19/16 07:40 Eos % (Auto) 4.4 % (0.0-4.0) H 11/19/16 07:40 Baso % (Auto) 1.1 % (0.0-2.0) 11/19/16 07:40 Neut # 3.9 K/uL (1.8-7.0) 11/19/16 07:40 Lymph # 2.4 K/uL (1.0-4.3) 11/19/16 07:40 Hamlin # 0.7 K/uL (0.0-0.8) 11/19/16 07:40 Eos # 0.3 K/uL (0.0-0.7) 11/19/16 07:40 Baso # 0.1 K/uL (0.0-0.2) 11/19/16 07:40 ESR 40 mm/hr (0-20) H 11/17/16 23:37 PT 10.9 SECONDS (9.7-12.2) 11/18/16 00:49 INR 1.0 11/18/16 00:49 APTT 32 SECONDS (21-34) 11/18/16 00:49 Sodium 139 mmol/L (132-148) 11/19/16 07:40 Potassium 4.5 mmol/L (3.6-5.2) 11/19/16 07:40 Chloride 92 mmol/L (98-107) L 11/19/16 07:40 Carbon Dioxide 31 mmol/L (22-30) H 11/19/16 07:40 Anion Gap 21 (10-20) H 11/19/16 07:40 BUN 40 mg/dL (7-17) H 11/19/16 07:40 Creatinine 5.8 MG/DL (0.7-1.2) H 11/19/16 07:40 Est GFR ( Amer) 9 11/19/16 07:40 Est GFR (Non-Af Amer) 7 11/19/16 07:40 POC Glucose (mg/dL) 95 mg/dL (65-110) 11/19/16 16:52 Random Glucose 107 mg/dL (65-105) H 11/19/16 07:40 Hemoglobin A1c 6.6 % (4.2-6.5) H 11/18/16 08:00 Uric Acid 4.6 mg/dL (2.2-7.5) 11/18/16 08:00 Calcium 8.6 mg/dl (8.6-10.4) 11/19/16 07:40 Phosphorus 4.8 mg/dL (2.5-4.5) H 11/19/16 07:40 Magnesium 2.2 mg/dL (1.6-2.3) 11/19/16 07:40 Iron 123 ug/dL (37-170) 11/18/16 08:00 TIBC 188 ug/dL (250-450) L 11/18/16 08:00 % Saturation 66 (20-55) H 11/18/16 08:00 Total Bilirubin 0.4 mg/dL (0.2-1.3) 11/19/16 07:40 AST 24 U/L (14-36) 11/19/16 07:40 ALT 15 U/L (9-52) 11/19/16 07:40 Alkaline Phosphatase 131 U/L (38-126) H 11/19/16 07:40 Total Creatine Kinase 52 U/L (30-135) 11/17/16 23:37 NT-Pro-B Natriuret Pep 8800 pg/mL (0-900) H 11/18/16 08:00 Total Protein 6.6 g/dL (6.3-8.3) 11/19/16 07:40 Albumin 3.5 g/dL (3.5-5.0) 11/19/16 07:40 Globulin 3.1 gm/dL (2.2-3.9) 11/19/16 07:40 Albumin/Globulin Ratio 1.1 (1.0-2.1) 11/19/16 07:40 Triglycerides 271 mg/dL (0-149) H 11/18/16 08:00 Cholesterol 132 mg/dL (0-199) 11/18/16 08:00 LDL Cholesterol Direct 45 mg/dL (0-129) 11/18/16 08:00 HDL Cholesterol 25 mg/dL (30-70) L 11/18/16 08:00 Vitamin B12 873 pg/mL (239-931) 11/18/16 08:00 Folate 16.8 ng/mL 11/18/16 08:00 Thyroxine (T4) 5.72 ug/dL (5.5-11.0) 11/18/16 08:00 TSH 3rd Generation 5.01 mIU/L (0.46-4.68) H 11/18/16 08:00 Fluid Type Synovial fluid 11/18/16 08:58 Fluid Crystals Negative (NEGATIVE) 11/18/16 08:58 Synovial WBC 2561.0 /mm3 (0.0-150.0) H 11/18/16 08:58 Synovial RBC 8056846.0 /mm3 (0.0-0.0) H 11/18/16 08:58 Synovial Neutrophils 77.0 % (0-0) H 11/18/16 08:58 Synovial Lymphocytes 13.0 % (0-0) H 11/18/16 08:58 Synov Monos/Macrophage 7 % (0-0) H 11/18/16 08:58 Synovial Fluid Comment 11/18/16 08:58 - Hospital Course Hospital Course: Upon hospital admission: Patient is a 61F with medical history of ESRD on HD who presents to the ED complaining of L knee pain and swelling. Patient states she has suffered from bilateral shoulder and knee pain for 3-4 months which has become increasingly more severe. Patient reports new onset left knee swelling this afternoon and associated 8/10 pain disabling her from ambulating. Patient denies any trauma to the area. She typically walks without assistance but admits to difficulty with mobility and inability to use a cane due to limited range of motion to upper extremities and weakness to right side following CVA. Due to inability to walk, patient missed hemodialysis today. Her regular dialysis schedule is [facility]. She denies fever, chills, chest pain, shortness of breath, abdominal pain, nausea, vomiting, constipation, diarrhea, and urinary symptoms. Patient admits to weakness following dialysis. She also states she has loss of appetite and has lost over 100 pounds in the past year. PMD: cannot recall Olap Developer: Dr. Umberto Pina PMH: ESRD on HD, chronic shoulder and knee pain, DMII, HTN, CVA with R hemiparesis, CAD, HLD, Hypothyroidism, Asthma, Sleep Apnea Medications: Norvasc 5 mg po qd, Lisinopril 20 mg po daily, Hydralazine 50 mg po TID, Carvedilol 12.5 mg po BID, Isosorbide 60 mg po 0900, Minoxidil 2.5 mg po 0900, 2200, ASA 81 mg po daily, Sevelamer 3 mg po TID, Levothyroxine 100 mcg po daily, Monteleukast 1 mg po daily, Omeprazole 40 mg po daily Family Hx: Mother - on [place] in 40s Surgical Hx: L arm fistula, cholecystectomy, total abdominal hysterectomy and b/ l oopherectomy Social: Never smoker. Denies alcohol and illicit drug use. During hospital course, the patient was evaluated and treated for the following : 1. ESRD for which she received HD on 11/18 and 11/19. Her HD schedule is typically MWF. Consulted Olap Developer, Dr. Pina, help appreciated. 2. L Suprapatellar Effusion for which L Knee X-RAY: Degenerative arthritic changes with large suprapatellar effusion. She was tx with Tylenol 650 mg po PRN for pain. Consulted Othropedic who performed gram stain few WBC and no organisms, fluid cell count, WBC 2561 77% polys, RBC [id number], negative crystals, not consistent with infection or gout, consistent with hemarthrosis, unclear etiology, no orthopedic intervention indicated at this time, PT/OT 11/19 (limit weight bearing due to pain at this time). Plan was for inpatient MRI of knee, however patient refused due to anxiety, despite being explained that ativan IVP will help. She states she will perform as an outpatient when in the right state of mind. 3. DMII with hemoglobin a1c - 6.6, RISS, and Accuchecks. She will follow up with her PMD regarding this A1C. 4. CAD for which we continued home medications: Carvidolol 12.5 mg po BID, ASA 81 mg po daily, Lisinopril 20 mg po daily, Isosorbide mononitrate 60 mg po 0900. Lipid panel triglyc 271H, Cholest 132, LDL45, HDL25. She will follow up as an outpatient. 5. Hypertension tx with Hydralazine 50 mg po TID, Norvasc 5 mg po daily, Minoxidil 2.5 mg po. 6. Hypothyroidism tx with home medication Levothyroxine 100 mcg po daily. 7. Asthma tx with home meds Monteleukast and Duoneb RQH PRN for shortness of breath. 8. GERD tx with Protonix 40 mg po daily. 9. Sleep Apnea tx with CPAP at night. Upon hospital discharge, the patient was provided with the following instructions: Patient is stable for discharge to [facility] per Dr. Schilling. Patient should resume all home medications as outlined in this document. Please note patient receives dialysis MWF (while hospitalized, her schedule was TThSat). 1. Please make an appointment and follow up with Primary Doctor within one week of discharge from [facility]. If patient does not have a Primary Doctor, please follow up with [facility] to establish medical care, at [phone]. 2. Please make an appointment and follow up with DR. Bolivar (orthopedic doctor) as outpatient [phone]. He will further evaluate and treat your Left knee hemarthrosis (no trauma) and Left knee severe DJD. The Hospitalist team recommends an MRI of your L knee as an outpatient. Patient should return to ED immediately if symptoms return or worsen. Instructions discussed with patient who understood and agreed. This is a summary of the patient's hospital admission, see chart for comprehensive detail. - Date & Time of H&P Date of H&P: 11/18/16 Time of H&P: 03:28 Discharge Exam - Additional Findings Additional findings: - Constitutional Appears: Non-toxic, No Acute Distress - Head Exam Head Exam: ATRAUMATIC, NORMAL INSPECTION, NORMOCEPHALIC - Eye Exam Eye Exam: EOMI, Normal appearance, PERRL - ENT Exam ENT Exam: Mucous Membranes Moist - Neck Exam Neck exam: Positive for: Normal Inspection, Tenderness - Respiratory Exam Respiratory Exam: Clear to Auscultation Bilateral, NORMAL BREATHING PATTERN. absent: Accessory Muscle Use, Rales, Rhonchi, Wheezes - Cardiovascular Exam Cardiovascular Exam: +S1, +S2, Systolic Murmur. absent: Tachycardia - GI/Abdominal Exam GI & Abdominal Exam: Normal Bowel Sounds, Soft. absent: Distended, Firm, Guarding - Extremities Exam Extremities exam: Positive for: tenderness, pedal pulses present Additional comments: right sided weakness (from CVA) L suprapatellar pain improving after aspiration, mild edema, limited ROM - Back Exam Back exam: NORMAL INSPECTION, tenderness - Neurological Exam Neurological exam: Alert, Oriented x3 - Psychiatric Exam Psychiatric exam: Normal Affect, Normal Mood - Skin Skin Exam: Intact, Normal Color Discharge Plan - Follow Up Plan Condition: STABLE Disposition: REHAB FACILITY/REHAB UNIT Instructions: Swollen Knee Joint (GEN), Arthritis (GEN) Additional Instructions: Patient is stable for discharge to [facility] per Dr. Schilling. Patient should resume all home medications as outlined in this document. Please note patient receives dialysis MWF (while hospitalized, her schedule was TThSat). 1. Please make an appointment and follow up with Primary Doctor within one week of discharge from [facility]. If patient does not have a Primary Doctor, please follow up with [facility] to establish medical care, at [phone]. 2. Please make an appointment and follow up with DR. Bolivar (orthopedic doctor) as outpatient [phone]. He will further evaluate and treat your Left knee hemarthrosis (no trauma) and Left knee severe DJD. The Hospitalist team recommends an MRI of your L knee as an outpatient. Patient should return to ED immediately if symptoms return or worsen. Instructions discussed with patient who understood and agreed. Referrals: Umberto Pina MD [Staff Provider] - Jeovany Bolivar MD [Staff Provider] - <Morgan Schilling - Last Filed: 12/14/16 22:19> Provider - Provider Date of Admission: 11/18/16 01:09 Attending physician: Giacomo Thorne MD Hospital Course - Lab Results Lab Results: Micro Results 11/18/16 08:14 Knee - Left Gram Stain - Final 11/18/16 08:14 Knee - Left Wound Culture - Final No growth. Most Recent Lab Values WBC 7.4 K/uL (4.8-10.8) 11/19/16 07:40 RBC 3.37 Mil/uL (3.80-5.20) L 11/19/16 07:40 Hgb 9.2 g/dL (11.0-16.0) L 11/19/16 07:40 Hct 29.1 % (34.0-47.0) L 11/19/16 07:40 MCV 86.3 fL (81.0-99.0) 11/19/16 07:40 MCH 27.3 pg (27.0-31.0) 11/19/16 07:40 MCHC 31.6 g/dL (33.0-37.0) L 11/19/16 07:40 RDW 15.8 % (11.5-14.5) H 11/19/16 07:40 Plt Count 152 K/uL (130-400) 11/19/16 07:40 MPV 10.2 fL (7.2-11.7) 11/19/16 07:40 Neut % (Auto) 52.3 % (50.0-75.0) 11/19/16 07:40 Lymph % (Auto) 32.1 % (20.0-40.0) 11/19/16 07:40 Hamlin % (Auto) 10.1 % (0.0-10.0) H 11/19/16 07:40 Eos % (Auto) 4.4 % (0.0-4.0) H 11/19/16 07:40 Baso % (Auto) 1.1 % (0.0-2.0) 11/19/16 07:40 Neut # 3.9 K/uL (1.8-7.0) 11/19/16 07:40 Lymph # 2.4 K/uL (1.0-4.3) 11/19/16 07:40 Hamlin # 0.7 K/uL (0.0-0.8) 11/19/16 07:40 Eos # 0.3 K/uL (0.0-0.7) 11/19/16 07:40 Baso # 0.1 K/uL (0.0-0.2) 11/19/16 07:40 ESR 40 mm/hr (0-20) H 11/17/16 23:37 PT 10.9 SECONDS (9.7-12.2) 11/18/16 00:49 INR 1.0 11/18/16 00:49 APTT 32 SECONDS (21-34) 11/18/16 00:49 Sodium 139 mmol/L (132-148) 11/19/16 07:40 Potassium 4.5 mmol/L (3.6-5.2) 11/19/16 07:40 Chloride 92 mmol/L (98-107) L 11/19/16 07:40 Carbon Dioxide 31 mmol/L (22-30) H 11/19/16 07:40 Anion Gap 21 (10-20) H 11/19/16 07:40 BUN 40 mg/dL (7-17) H 11/19/16 07:40 Creatinine 5.8 MG/DL (0.7-1.2) H 11/19/16 07:40 Est GFR ( Amer) 9 11/19/16 07:40 Est GFR (Non-Af Amer) 7 11/19/16 07:40 POC Glucose (mg/dL) 95 mg/dL (65-110) 11/19/16 16:52 Random Glucose 107 mg/dL (65-105) H 11/19/16 07:40 Hemoglobin A1c 6.6 % (4.2-6.5) H 11/18/16 08:00 Uric Acid 4.6 mg/dL (2.2-7.5) 11/18/16 08:00 Calcium 8.6 mg/dl (8.6-10.4) 11/19/16 07:40 Phosphorus 4.8 mg/dL (2.5-4.5) H 11/19/16 07:40 Magnesium 2.2 mg/dL (1.6-2.3) 11/19/16 07:40 Iron 123 ug/dL (37-170) 11/18/16 08:00 TIBC 188 ug/dL (250-450) L 11/18/16 08:00 % Saturation 66 (20-55) H 11/18/16 08:00 Total Bilirubin 0.4 mg/dL (0.2-1.3) 11/19/16 07:40 AST 24 U/L (14-36) 11/19/16 07:40 ALT 15 U/L (9-52) 11/19/16 07:40 Alkaline Phosphatase 131 U/L (38-126) H 11/19/16 07:40 Total Creatine Kinase 52 U/L (30-135) 11/17/16 23:37 NT-Pro-B Natriuret Pep 8800 pg/mL (0-900) H 11/18/16 08:00 Total Protein 6.6 g/dL (6.3-8.3) 11/19/16 07:40 Albumin 3.5 g/dL (3.5-5.0) 11/19/16 07:40 Globulin 3.1 gm/dL (2.2-3.9) 11/19/16 07:40 Albumin/Globulin Ratio 1.1 (1.0-2.1) 11/19/16 07:40 Triglycerides 271 mg/dL (0-149) H 11/18/16 08:00 Cholesterol 132 mg/dL (0-199) 11/18/16 08:00 LDL Cholesterol Direct 45 mg/dL (0-129) 11/18/16 08:00 HDL Cholesterol 25 mg/dL (30-70) L 11/18/16 08:00 Vitamin B12 873 pg/mL (239-931) 11/18/16 08:00 Folate 16.8 ng/mL 11/18/16 08:00 Thyroxine (T4) 5.72 ug/dL (5.5-11.0) 11/18/16 08:00 TSH 3rd Generation 5.01 mIU/L (0.46-4.68) H 11/18/16 08:00 Fluid Type Synovial fluid 11/18/16 08:58 Fluid Crystals Negative (NEGATIVE) 11/18/16 08:58 Synovial WBC 2561.0 /mm3 (0.0-150.0) H 11/18/16 08:58 Synovial RBC 9691975.0 /mm3 (0.0-0.0) H 11/18/16 08:58 Synovial Neutrophils 77.0 % (0-0) H 11/18/16 08:58 Synovial Lymphocytes 13.0 % (0-0) H 11/18/16 08:58 Synov Monos/Macrophage 7 % (0-0) H 11/18/16 08:58 Synovial Fluid Comment 11/18/16 08:58 Attending/Attestation - Attestation I have personally seen and examined this patient.: Yes I have fully participated in the care of the patient.: Yes I have reviewed all pertinent clinical information, including history, physical exam and plan: Yes
[2016-11-22] MEDS ORDERED: Epoetin Alfa 3000 UNIT/ML Inj IV SCH (09:00)
== END 2016-11-19 19:10 ==
LOC: C.ER 21:18 → INTOOBSV 11-18 01:09 → C.9E 11-18 01:09 → C.3T 11-18 02:33
PROVIDERS: ADMIT Family Medicine; ATTEND Family Medicine
PROC: 5A1D00Z (ICD-10-PCS; principal; 2016-11-18)
DX: M25.062 Hemarthrosis, left knee (principal); I12.0 Hypertensive chronic kidney disease with stage 5 chronic kidney disease or end stage renal disease; E11.22 Type 2 diabetes mellitus with diabetic chronic kidney disease; N18.6 End stage renal disease; M17.12 Unilateral primary osteoarthritis, left knee; I25.10 Atherosclerotic heart disease of native coronary artery without angina pectoris; E78.5 Hyperlipidemia, unspecified; E78.00 Pure hypercholesterolemia, unspecified; E03.9 Hypothyroidism, unspecified; J45.909 Unspecified asthma, uncomplicated; I69.351 Hemiplegia and hemiparesis following cerebral infarction affecting right dominant side; G47.30 Sleep apnea, unspecified; F41.9 Anxiety disorder, unspecified; G89.29 Other chronic pain; Z90.710 Acquired absence of both cervix and uterus; K21.9 Gastro-esophageal reflux disease without esophagitis; M25.462 Effusion, left knee; M85.80 Other specified disorders of bone density and structure, unspecified site; Z79.82 Long term (current) use of aspirin; Z99.2 Dependence on renal dialysis
CPT/HCPCS: 36415; 73562; 80053; 80061; 82550; 82607; 82746; 82948; 83036; 83540; 83550; 83735; 83880; 84100; 84436; 84443; 84550; 85025; 85610; 85651; 85730; 87070; 89051; 89060; 97116; 97162; 97167; 97530; 99285; G0378; G8978; G8979; G8987; G8988; J1644

== ENCOUNTER 2016-11-22 17:15 | Inpatient (IN) | payer OTHER ==
[2016-11-22 17:15] VITALS: BMI 28.0
--- NOTE | 2016-11-22 19:23 | C.PDOC ---
History Of Present Illness 61 year old patient, with a past medical history of diabetes, gastritis, end stage renal disease, hypertension, and cardia arrhythmia, presents to the ED complaining of dizziness and mild headache that began earlier today. Patient is a hemodialysis patient for Tuesday, Tuesday and Tuesday. Patient complained of her symptoms during her session which lasted 2 hours and 15 minutes. pt reports reslved palpitations and cp. The symptoms have resolved now. Patient denies fever, vision changeshortness of breath, nausea, vomiting, neck pain, numbness, weakness, or any other complaints at this time. Time Seen by Provider: 11/22/16 19:10 Chief Complaint (Nursing): Dizziness/Lightheaded History Per: Patient History/Exam Limitations: no limitations Onset/Duration Of Symptoms: Mins (just prior to arrival) Current Symptoms Are (Timing): Gone Activity At Onset Of Symptoms: Other (during hemodialysis) Possible Causative Factor(s): Other Fall Associated With With Symptoms: No Severity: None Pain Scale Rating Of: 0 Recent travel outside of the [place]: No Past Medical History Reviewed: Historical Data, Nursing Documentation, Vital Signs Vital Signs: Last Vital Signs Temp 98.4 F 11/22/16 20:00 Pulse 79 11/22/16 20:00 Resp 18 11/22/16 20:00 BP 133/49 L 11/22/16 20:00 Pulse Ox 100 11/22/16 20:42 - Medical History PMH: Anemia, Arthritis, Asthma, Cardia Arrhythmia, Depression, Diabetes, Gastritis, HTN, Hypercholesterolemia, Hypothyroidism, End Stage Renal Disease, Chronic Kidney Disease, Sleep Apnea Surgical History: Cholecystectomy - [facility] Procedures DRAINAGE OF VULVA, OPEN APPROACH (11/05/15) EXCIS DEBRIDE OF WOUND, INFECT, OR BURN (11/09/14) HEMODIALYSIS (11/09/14) INCIS PERIANAL ABSCESS (11/09/14) PERFORMANCE OF URINARY FILTRATION, MULTIPLE (05/16/16) PERFORMANCE OF URINARY FILTRATION, SINGLE (11/18/16) Family History: States: Unknown Family Hx, Diabetes - Social History Hx Tobacco Use: No Hx Alcohol Use: No Hx Substance Use: No - Immunization History Hx Tetanus Toxoid Vaccination: Yes Hx Influenza Vaccination: Yes (2015) Hx Pneumococcal Vaccination: Yes (2015) Review Of Systems Except As Marked, All Systems Reviewed And Found Negative. Constitutional: Negative for: Fever Eyes: Negative for: Vision Change Cardiovascular: Negative for: Chest Pain Respiratory: Negative for: Shortness of Breath Gastrointestinal: Negative for: Nausea, Vomiting Musculoskeletal: Negative for: Neck Pain Neurological: Positive for: Headache, Dizziness. Negative for: Weakness, Numbness Physical Exam - Physical Exam Appears: Non-toxic, No Acute Distress, Other (eating crackers in bed) Skin: Warm, Dry Head: Atraumatic, Normacephalic Eye(s): bilateral: Normal Inspection, PERRL, EOMI Ear(s): Bilateral: Normal Nose: Normal Oral Mucosa: Moist Throat: Normal Neck: Normal ROM, Supple Chest: Symmetrical Cardiovascular: Rhythm Regular Respiratory: Normal Breath Sounds, No Rales, No Rhonchi, No Wheezing Gastrointestinal/Abdominal: Soft, No Tenderness Back: Normal Inspection, No CVA Tenderness Extremity: Normal ROM Neurological/Psych: Oriented x3, Normal Speech, Normal Cognition ED Course And Treatment - Laboratory Results Result Diagrams: 11/22/16 19:40 11/22/16 19:40 ECG: Interpreted By Me, Viewed By Me ECG Rhythm: Sinus Rhythm ECG Interpretation: Normal Interpretation Of ECG: No ST/T wave changes Rate From EC (bpm) O2 Sat by Pulse Oximetry: 100 (RA) Pulse Ox Interpretation: Normal - Radiology CXR: Interpreted by Me, Viewed By Me CXR Interpretation: Yes: No Acute Disease. No: Infiltrates Progress Note: Plan: -EKG. -Labs. -Chest XR Medical Decision Making Medical Decision Making: r/o metabolic, infectious, atypical cardiac. pt smiling in nad eating crackers, asymptomatic, neuro intact. 840: pt reassessed. smiling, in nad, asympomatic. labs ekg cxr neg. pain ,free, took asa today., family uncomfortable with d/c as pt only got half hd. dr anne accpets covering for dr clinton Disposition - Disposition Disposition: HOSPITALIZED Disposition Time: 20:41 Condition: STABLE Additional Instructions: please see your doctor. return to er with worsening symptoms or concerns. Instructions: Dizziness (ED), Acute Headache (ED) - Clinical Impression Clinical Impression: Dizziness, Chest pain - Scribe Statement The provider has reviewed the documentation as recorded by the Scribe Michelle Marks Provider Attestation: All medical record entries made by the Scribe were at my direction and personally dictated by me. I have reviewed the chart and agree that the record accurately reflects my personal performance of the history, physical exam, medical decision making, and the department course for this patient. I have also personally directed, reviewed, and agree with the discharge instructions and disposition. Decision To Admit - Pt Status Changed To: Hospital Disposition Of: Observation - . Bed Request Type: Telemetry Admitting Physician: Reginald Anne Patient Diagnosis: Dizziness, Chest pain
[2016-11-22 19:49] LABS: POTASSIUM 4.9 mmol/L (3.6-5.2)
[2016-11-22 19:52] LABS: ALB/GLOB RATIO 1.1 (1.0-2.1); BILIRUBIN,TOTAL 0.4 mg/dL (0.2-1.3); TOTAL PROTEIN 7.2 g/dL (6.3-8.3)
[2016-11-22 19:53] LABS: CALCIUM 8.8 mg/dl (8.6-10.4)
[2016-11-22 20:04] LABS: TROPONIN I 0.03 ng/mL (0.00-0.120)
[2016-11-22 20:17] LABS: BASO # 0.1 K/uL (0.0-0.2); BASO % 0.9 % (0.0-2.0); EOS # 0.2 K/uL (0.0-0.7); EOS % 2.7 % (0.0-4.0); HEMATOCRIT 30.3 % (34.0-47.0); LYMPH # 1.6 K/uL (1.0-4.3); LYMPH % 19.3 % (20.0-40.0); MEAN CELL VOLUME 85.4 fL (81.0-99.0); MEAN CORPUSCULAR HEMOGLOBIN 27.8 pg (27.0-31.0); MEAN CORPUSCULAR HGB CONC 32.5 g/dL (33.0-37.0); MEAN PLATELET VOLUME 10.5 fL (7.2-11.7); MONO # 0.6 K/uL (0.0-0.8); MONO % 7.3 % (0.0-10.0); RED CELL DISTRIBUTION WIDTH 14.8 % (11.5-14.5); WHITE BLOOD COUNT 8.3 K/uL (4.8-10.8)
[2016-11-22 20:18] LABS: INR 0.9
[2016-11-23] MEDS: (Novolin R) Insulin Human Regular 100 units/ml vial SC SCH ×4 (08:00→22:00)
--- NOTE | 2016-11-23 09:12 | CP.PCM.HP ---
History of Present Illness - History of Present Illness History of Present Illness: CC:Chest pain HPI: 61 year old patient, with a past medical history of diabetes, gastritis, end stage renal disease, hypertension, and cardic arrhythmia, presents to the ED complaining of dizziness and mild headache that began yesterday during dialysis. Patient is a hemodialysis patient for Tuesday, Tuesday and Tuesday. Patient complained of her symptoms during her session which lasted 2 hours and 15 minutes. pt reports reslved palpitations and cp. The symptoms have resolved now. The patient was stating she was mildly SOB since her dialysis. Patient denies fever, vision change, nausea, vomiting, neck pain, numbness, weakness, or any other complaints at this time. This morning the patient complained of chest pain. She was tachycardic into the 130s. BP was controlled. Cardiac enzymes were checked. CT Angio was sent and was negative for PE. Patient was started on Hearin drip for ACS protocol. PMD: cannot recall [employer] Machine Tender: Dr. Umberto Pina PMH: ESRD on HD, chronic shoulder and knee pain, DMII, HTN, CVA with R hemiparesis, CAD, HLD, Hypothyroidism, Asthma, Sleep Apnea Medications: Norvasc 5 mg po qd, Lisinopril 20 mg po daily, Hydralazine 50 mg po TID, Carvedilol 12.5 mg po BID, Isosorbide 60 mg po 0900, Minoxidil 2.5 mg po 0900, 2200, ASA 81 mg po daily, Sevelamer 3 mg po TID, Levothyroxine 100 mcg po daily, Monteleukast 1 mg po daily, Omeprazole 40 mg po daily Family Hx: Mother - on CO in 40s Surgical Hx: L arm fistula, cholecystectomy, total abdominal hysterectomy and b/ l oopherectomy Social: Never smoker. Denies alcohol and illicit drug use. Present on Admission - Present on Admission Any Indicators Present on Admission: No Review of Systems - Constitutional Constitutional: absent: Chills, Fever - Cardiovascular Cardiovascular: Chest Pain, Chest Pain at Rest, Leg Edema. absent: Edema, Palpitations, Pedal Edema - Respiratory Respiratory: Dyspnea, Dyspnea on Exertion. absent: Cough - Gastrointestinal Gastrointestinal: Abdominal Pain. absent: Constipation, Diarrhea, Nausea, Vomiting - Genitourinary Genitourinary: absent: Change in Urinary Stream, Difficulty Urinating Past Patient History - Infectious Disease Hx of Infectious Diseases: None - Tetanus Immunizations Tetanus Immunization: Unknown - Past Medical History & Family History Past Medical History?: Yes - Past Social History Smoking Status: Never Smoked - CARDIAC Hx Cardia Arrhythmia: Yes Hx Hypercholesterolemia: Yes Hx Hypertension: Yes - PULMONARY Hx Asthma: Yes Hx Sleep Apnea: Yes - NEUROLOGICAL Hx Neurological Disorder: Yes HX Cerebrovascular Accident: Yes (CVA c R hemiparesis 2010) - HEENT Hx HEENT Problems: Yes Other/Comment: uses eyeglasses - RENAL Hx Chronic Kidney Disease: Yes Date of Last Dialysis Treatment: 11/22/16 - ENDOCRINE/METABOLIC Hx Diabetes Mellitus Type 2: Yes Hx Hypothyroidism: Yes - HEMATOLOGICAL/ONCOLOGICAL Hx Anemia: Yes - INTEGUMENTARY Hx Dermatological Problems: Yes (SEE COMMENT) Other/Comment: LEFT UPPER ARM AV SHUNT - MUSCULOSKELETAL/RHEUMATOLOGICAL Hx Degenerative Joint Disease: Yes Hx Falls: No Other/Comment: generalized joint pains - GASTROINTESTINAL Hx Gastrointestinal Disorders: Yes Hx Gastritis: Yes - GENITOURINARY/GYNECOLOGICAL Hx Genitourinary Disorders: Yes (She has MERCEDEZ BSO) Other/Comment: ESRD - PSYCHIATRIC Hx Depression: Yes Hx Substance Use: No - SURGICAL HISTORY Hx Arteriovenous Shunt: Yes Hx Cholecystectomy: Yes - ANESTHESIA Hx Anesthesia: Yes Hx Anesthesia Reactions: No Hx Malignant Hyperthermia: No Meds Allergies/Adverse Reactions: Allergies Allergy/AdvReac Type Severity Reaction Status Date / Time No Known Allergies Allergy Verified 11/22/16 17:58 Physical Exam - Constitutional Appears: Non-toxic, No Acute Distress - Head Exam Head Exam: ATRAUMATIC, NORMAL INSPECTION - Eye Exam Eye Exam: EOMI, Normal appearance, PERRL Pupil Exam: NORMAL ACCOMODATION - ENT Exam ENT Exam: Mucous Membranes Moist - Respiratory Exam Respiratory Exam: Rales, NORMAL BREATHING PATTERN. absent: Accessory Muscle Use , Chest Wall Tenderness - Cardiovascular Exam Cardiovascular Exam: REGULAR RHYTHM, +S1, +S2 - GI/Abdominal Exam GI & Abdominal Exam: Normal Bowel Sounds, Soft. absent: Distended, Firm, Guarding - Extremities Exam Extremities exam: Positive for: pedal edema. Negative for: calf tenderness Additional comments: L knee edema, was present on last admission - Back Exam Back exam: NORMAL INSPECTION. absent: CVA tenderness (L), CVA tenderness (R), paraspinal tenderness - Neurological Exam Neurological exam: Alert, CN II-XII Intact, Oriented x3 - Psychiatric Exam Psychiatric exam: Anxious, Normal Affect, Normal Mood - Skin Skin Exam: Dry, Intact, Normal Color, Warm Results - Vital Signs Recent Vital Signs: Last Vital Signs Temp 98.2 F 11/23/16 05:59 Pulse 120 H 11/23/16 08:30 Resp 118 H 11/23/16 06:08 BP 177/59 H 11/23/16 06:08 Pulse Ox 95 11/23/16 06:08 - Labs Result Diagrams: 11/22/16 19:40 11/23/16 09:11 Labs: Laboratory Results - last 24 hr 11/22/16 11/23/16 23:36 08:08 POC Glucose (mg/dL) 140 H 141 H Assessment & Plan - Assessment and Plan (Free Text) Assessment: Chestpain Dr. Guzmán consulted help appreciated Cardiac enzymes neg x 3 Active chest pain this AM Morphine to be given as needed On heparin drip f/u new EKG, and Echo f/u AM labs ESRD 11/18: received HD today. Consulted [employer] Tender, Dr. Pina, help appreciated L Suprapatellar Effusion Patient refusing MRI right now due to fear of cluasterphobia On recent admission: L Knee X-RAY: Degenerative arthritic changes with large suprapatellar effusion Tylenol 650 mg po PRN for pain gram stain few WBC and no organisms fluid cell count WBC 2561 77% polys RBC [id number] negative crystals not consistent with infection or gout consistent with hemarthrosis, unclear etiology no orthopedic intervention indicated at this time PT/OT 11/19 (limit weight bearing due to pain at this time) cultures - no growth DMII hemoglobin a1c - 6.6 RISS Accuchecks Monitor sugar CAD Continue home medications: Carvidolol 12.5 mg po BID ASA 81 mg po daily Lisinopril 20 mg po daily Isosorbide mononitrate 60 mg po 0900 lipid panel - triglyc 271H, Cholest 132, LDL45, HDL25 Hypertension Continue home medications: Hydralazine 50 mg po TID Norvasc 5 mg po daily Lisinopril 20mg PO daily Monitor Hypothyroidism Continue home medication Levothyroxine 100 mcg po daily Asthma Continue home medication Monteleukast Duoneb RQH PRN for shortness of breath GERD Protonix 40 mg po daily Sleep Apnea CPAP at night Prophylaxis SCD Protonix On heparin drip
[2016-11-23 09:28] LABS: POTASSIUM 5.1 mmol/L (3.6-5.2)
[2016-11-23 09:32] LABS: CALCIUM 8.9 mg/dl (8.6-10.4); MAGNESIUM 2.1 mg/dL (1.6-2.3); PHOSPHOROUS 4.2 mg/dL (2.5-4.5)
[2016-11-23 09:43] LABS: TROPONIN I 0.047 ng/mL (0.00-0.120)
--- NOTE | 2016-11-23 10:28 | RAD ---
PROCEDURE: CHEST RADIOGRAPH, 1 VIEW HISTORY: Chest pain COMPARISON: 06/01/2016 upper FINDINGS: LUNGS: The lungs are clear. PLEURA: No pneumothorax or pleural fluid seen. CARDIOVASCULAR: The cardiomediastinal silhouette is stable. OSSEOUS STRUCTURES: No significant abnormalities. VISUALIZED UPPER ABDOMEN: Normal. OTHER FINDINGS: None. IMPRESSION: No active pulmonary disease.
--- NOTE | 2016-11-23 11:10 | CP.PCM.CON ---
History of Present Illness - History of Present Illness History of Present Illness: 61 y/o female with ESRD on [facility], HTN, paroxysmal SXVT & old CVA is admitted to ICU for c/o CP & palpitations. Pt was receiving dialysis yesterday when she developed dizziness & palp. Dialysis was stopped after 2.5 hrs & Pt sent to ER.In ER Pt was noted to be in SVT Pt was hospitalized last wk for Lt knee swelling & pain The effusion was tapped & was hemorrhagic. Blood cultures & knee effusion cultures were negative Past Patient History - Infectious Disease Hx of Infectious Diseases: None - Tetanus Immunizations Tetanus Immunization: Unknown - Past Medical History & Family History Past Medical History?: Yes - Past Social History Smoking Status: Never Smoked - CARDIAC Hx Cardia Arrhythmia: Yes Hx Hypercholesterolemia: Yes Hx Hypertension: Yes - PULMONARY Hx Asthma: Yes Hx Sleep Apnea: Yes - NEUROLOGICAL Hx Neurological Disorder: Yes HX Cerebrovascular Accident: Yes (CVA c R hemiparesis 2010) - HEENT Hx HEENT Problems: Yes Other/Comment: uses eyeglasses - RENAL Hx Chronic Kidney Disease: Yes Hx Dialysis: Yes ([facility] ) Type of Dialysis Access: Lt arm AVF Date of Last Dialysis Treatment: 11/22/16 - ENDOCRINE/METABOLIC Hx Diabetes Mellitus Type 2: Yes Hx Hypothyroidism: Yes - HEMATOLOGICAL/ONCOLOGICAL Hx Anemia: Yes - INTEGUMENTARY Hx Dermatological Problems: Yes (SEE COMMENT) Other/Comment: LEFT UPPER ARM AV SHUNT - MUSCULOSKELETAL/RHEUMATOLOGICAL Hx Degenerative Joint Disease: Yes Hx Falls: No Other/Comment: generalized joint pains - GASTROINTESTINAL Hx Gastrointestinal Disorders: Yes Hx Gastritis: Yes - GENITOURINARY/GYNECOLOGICAL Hx Genitourinary Disorders: Yes (She has MERCEDEZ BSO) Other/Comment: ESRD - PSYCHIATRIC Hx Depression: Yes Hx Substance Use: No - SURGICAL HISTORY Hx Arteriovenous Shunt: Yes Hx Cholecystectomy: Yes - ANESTHESIA Hx Anesthesia: Yes Hx Anesthesia Reactions: No Hx Malignant Hyperthermia: No Meds Allergies/Adverse Reactions: Allergies Allergy/AdvReac Type Severity Reaction Status Date / Time No Known Allergies Allergy Verified 11/22/16 17:58 - Medications Medications: Current Medications Aspirin (Aspirin Chewable) 81 mg PO DAILY [facility] Last Admin: 11/23/16 09:17 Dose: 81 mg Carvedilol (Coreg) 12.5 mg PO BID [facility] Last Admin: 11/23/16 09:13 Dose: 12.5 mg Insulin Human Regular (Novolin R) 0 unit SC ACHS TYRONE PRN Reason: Protocol Last Admin: 11/23/16 08:00 Dose: Not Given Morphine Sulfate (Morphine) 2 mg IVP Q4 PRN PRN Reason: Pain, severe (8-10) Pantoprazole Sodium (Protonix Ec Tab) 40 mg PO DAILY [facility] Physical Exam - Constitutional Appears: No Acute Distress - Head Exam Head Exam: ATRAUMATIC, NORMOCEPHALIC - Eye Exam Additional comments: Conj pale ,sclerae anicteric - ENT Exam ENT Exam: Mucous Membranes Moist - Neck Exam Additional comments: JVD + @ 40 degrees - Respiratory Exam Respiratory Exam: NORMAL BREATHING PATTERN Additional comments: Lungs clear - Cardiovascular Exam Cardiovascular Exam: REGULAR RHYTHM Additional comments: Currently in sinus rythm - GI/Abdominal Exam GI & Abdominal Exam: Soft Additional comments: No tenderness - Rectal Exam Rectal Exam: Deferred - Extremities Exam Additional comments: No edema or cyanosis Lt knee swelling less than before Results - Vital Signs Recent Vital Signs: Last Vital Signs Temp 98.2 F 11/23/16 05:59 Pulse 120 H 11/23/16 08:30 Resp 118 H 11/23/16 06:08 BP 105/66 11/23/16 09:13 Pulse Ox 95 11/23/16 06:08 - Labs Result Diagrams: 11/22/16 19:40 11/23/16 09:11 Labs: Laboratory Results - last 24 hr 11/22/16 11/23/16 11/23/16 23:36 08:08 09:11 Sodium 132 Potassium 5.1 Chloride 89 L Carbon Dioxide 27 Anion Gap 21 H BUN 44 H Creatinine 6.2 H Est GFR ( Amer) 8 Est GFR (Non-Af Amer) 7 POC Glucose (mg/dL) 140 H 141 H Random Glucose 181 H Calcium 8.9 Phosphorus 4.2 Magnesium 2.1 Total Creatine Kinase 55 CK-MB (Mass) 0.88 Troponin I 0.0470 Troponin I, Quant 0.0470 Assessment & Plan - Assessment and Plan (Free Text) Assessment: ESRD on HD SVT, Chest pain HTN Hx/o CVA with Rt hemiparesis Plan: Pt is scheduled for dialysis today Monitor BP cardiology evaluation
[2016-11-23] MEDS ORDERED: Iodixanol 320 MG/ML 200 ML BOTTLE IV ONE (11:27)
[2016-11-23] MEDS ORDERED: Heparin25000 units/250ml 1/2NS 250 ML IV PRN (11:45)
[2016-11-23] MEDS: Pantoprazole 40 mg EC Tab PO SCH (12:52)
--- NOTE | 2016-11-23 13:08 | CT ---
CTA chest dated 11/23/2016. History: Tachycardia. Rule out PE. Contiguous helical/transaxial sections of the chest performed in standard fashion following intravenous injection of approximately 100 cc of is opaque 320 contrast material employing CTA protocol. Additional 2 dimensional sagittal and coronal reformats provided. Comparison made with prior CT scan chest 01/18/2016. Radiation dose. Total DLP = 525.76 mGy-cm. Findings: Current study reveals no definitive filling defects seen within the pulmonary trunk, right and left main, lobar, segmental or proximal subsegmental branches of the pulmonary arteries to suggest acute pulmonary embolus. Pulmonary trunk is dilated measuring approximately 4.156 cm; rule out underlying pulmonary arterial hypertension. Heart size is borderline/ mildly enlarged. No significant pericardial effusion. Ascending thoracic aorta measures approximately 3.2 cm and descending thoracic aorta measures approximately 2.5 cm. No significant mediastinal or hilar adenopathy. Central airways are midline and patent. No endobronchial lesion seen. Small to medium size hiatal hernia with wall thickening of the distal esophagus that could be due to protrusion of gastric mucosa. Possibility of esophagitis or other intrinsic/ invasive wall lesion to be excluded. Lung romano are clear without infiltrate effusion or pneumothorax. Minor bibasilar atelectasis and or scarring . Tiny approximately 2.6 mm nodule posteromedial aspect right posterior sulcus the. There appears to be some minimal wall thickening of the inferior aspect right major fissure. Thyroid gland is unremarkable so far as can seen through streak and beam hardening artifact. Patient is status post cholecystectomy with metallic clips in the gallbladder fossa. Vascular calcifications are present. Mild multilevel degenerative spondylosis of the thoracic spine. Minor chronic anterior wedge deformity of a few thoracic segments noted. Impression: No radiographic evidence acute pulmonary embolus. Marked dilatation of pulmonary trunk; rule out underlying pulmonary arterial hypertension. Minor bibasilar atelectasis and or scarring. Small 2.65 mm nodule right lung base. See above discussion for additional findings and details. .
[2016-11-23] MEDS ORDERED: Albuterol-Ipratrop 3 mg / 0.5 (3 ml) UD INH PRN (17:08)
--- NOTE | 2016-11-23 17:44 | CP.PCM.CON ---
History of Present Illness - History of Present Illness History of Present Illness: patient seen/examined. full consult to follow. echocardiogram reviewed. normal left ventricular is normal. currently patient is in SVT. recommend cardizem drip. troponin negative. Past Patient History - Infectious Disease Hx of Infectious Diseases: None - Tetanus Immunizations Tetanus Immunization: Unknown - Past Medical History & Family History Past Medical History?: Yes - Past Social History Smoking Status: Never Smoked - CARDIAC Hx Cardia Arrhythmia: Yes Hx Hypercholesterolemia: Yes Hx Hypertension: Yes - PULMONARY Hx Asthma: Yes Hx Sleep Apnea: Yes - NEUROLOGICAL Hx Neurological Disorder: Yes HX Cerebrovascular Accident: Yes (CVA c R hemiparesis 2010) - HEENT Hx HEENT Problems: Yes Other/Comment: uses eyeglasses - RENAL Hx Chronic Kidney Disease: Yes Date of Last Dialysis Treatment: 11/22/16 - ENDOCRINE/METABOLIC Hx Diabetes Mellitus Type 2: Yes Hx Hypothyroidism: Yes - HEMATOLOGICAL/ONCOLOGICAL Hx Anemia: Yes - INTEGUMENTARY Hx Dermatological Problems: Yes (SEE COMMENT) Other/Comment: LEFT UPPER ARM AV SHUNT - MUSCULOSKELETAL/RHEUMATOLOGICAL Hx Degenerative Joint Disease: Yes Hx Falls: No Other/Comment: generalized joint pains - GASTROINTESTINAL Hx Gastrointestinal Disorders: Yes Hx Gastritis: Yes - GENITOURINARY/GYNECOLOGICAL Hx Genitourinary Disorders: Yes (She has MERCEDEZ BSO) Other/Comment: ESRD - PSYCHIATRIC Hx Depression: Yes Hx Substance Use: No - SURGICAL HISTORY Hx Arteriovenous Shunt: Yes Hx Cholecystectomy: Yes - ANESTHESIA Hx Anesthesia: Yes Hx Anesthesia Reactions: No Hx Malignant Hyperthermia: No Meds Allergies/Adverse Reactions: Allergies Allergy/AdvReac Type Severity Reaction Status Date / Time No Known Allergies Allergy Verified 11/22/16 17:58 - Medications Medications: Current Medications Albuterol/Ipratropium (Duoneb 3 Mg/0.5 Mg (3 Ml) Ud) 3 ml INH RQ6 PRN PRN Reason: Shortness of Breath Amlodipine Besylate (Norvasc) 5 mg PO DAILY [facility] Aspirin (Aspirin Chewable) 81 mg PO DAILY [facility] Last Admin: 11/23/16 09:17 Dose: 81 mg Carvedilol (Coreg) 12.5 mg PO BID [facility] Last Admin: 11/23/16 17:25 Dose: 12.5 mg Epoetin Lobo (Procrit) 3,000 unit IV [facility] Hydralazine HCl (Apresoline) 50 mg PO TID [facility] Last Admin: 11/23/16 17:25 Dose: 50 mg Heparin Sodium/Sodium Chloride (Heparin 09425 Units/250ml 1/2 Normal Saline) 250 mls @ 8.709 mls/hr IV .Q24H PRN; Protocol; 12 UNITS/KG/HR PRN Reason: PROTOCOL Insulin Human Regular (Novolin R) 0 unit SC ACHS TYRONE PRN Reason: Protocol Last Admin: 11/23/16 17:19 Dose: Not Given Isosorbide Mononitrate (Imdur) 60 mg PO 0900 [facility] Levothyroxine Sodium (Synthroid) 100 mcg PO 0630 [facility] Lisinopril (Zestril) 20 mg PO DAILY [facility] Montelukast Sodium (Singulair) 10 mg PO DAILY [facility] Morphine Sulfate (Morphine) 2 mg IVP Q4 PRN PRN Reason: Pain, severe (8-10) Pantoprazole Sodium (Protonix Ec Tab) 40 mg PO DAILY [facility] Last Admin: 11/23/16 12:52 Dose: 40 mg Sevelamer Carbonate (Renvela) 2,400 mg PO TID [facility] Last Admin: 11/23/16 17:25 Dose: 2,400 mg Results - Vital Signs Recent Vital Signs: Last Vital Signs Temp 97.8 F 11/23/16 14:55 Pulse 116 H 11/23/16 14:55 Resp 16 11/23/16 14:55 BP 127/96 H 11/23/16 17:25 Pulse Ox 100 11/23/16 14:55 - Labs Result Diagrams: 11/22/16 19:40 11/23/16 09:11 Labs: Laboratory Results - last 24 hr 11/22/16 11/23/16 11/23/16 23:36 08:08 09:11 Sodium 132 Potassium 5.1 Chloride 89 L Carbon Dioxide 27 Anion Gap 21 H BUN 44 H Creatinine 6.2 H Est GFR ( Amer) 8 Est GFR (Non-Af Amer) 7 POC Glucose (mg/dL) 140 H 141 H Random Glucose 181 H Calcium 8.9 Phosphorus 4.2 Magnesium 2.1 Total Creatine Kinase 55 CK-MB (Mass) 0.88 Troponin I 0.0470 Troponin I, Quant 0.0470 11/23/16 11/23/16 12:12 16:12 Sodium Potassium Chloride Carbon Dioxide Anion Gap BUN Creatinine Est GFR ( Amer) Est GFR (Non-Af Amer) POC Glucose (mg/dL) 201 H 97 Random Glucose Calcium Phosphorus Magnesium Total Creatine Kinase CK-MB (Mass) Troponin I Troponin I, Quant
--- NOTE | 2016-11-23 17:44 | CP.PCM.CON ---
Past Patient History - Infectious Disease Hx of Infectious Diseases: None - Tetanus Immunizations Tetanus Immunization: Unknown - Past Medical History & Family History Past Medical History?: Yes - Past Social History Smoking Status: Never Smoked - CARDIAC Hx Cardia Arrhythmia: Yes Hx Hypercholesterolemia: Yes Hx Hypertension: Yes - PULMONARY Hx Asthma: Yes Hx Sleep Apnea: Yes - NEUROLOGICAL Hx Neurological Disorder: Yes HX Cerebrovascular Accident: Yes (CVA c R hemiparesis 2010) - HEENT Hx HEENT Problems: Yes Other/Comment: uses eyeglasses - RENAL Hx Chronic Kidney Disease: Yes Date of Last Dialysis Treatment: 11/22/16 - ENDOCRINE/METABOLIC Hx Diabetes Mellitus Type 2: Yes Hx Hypothyroidism: Yes - HEMATOLOGICAL/ONCOLOGICAL Hx Anemia: Yes - INTEGUMENTARY Hx Dermatological Problems: Yes (SEE COMMENT) Other/Comment: LEFT UPPER ARM AV SHUNT - MUSCULOSKELETAL/RHEUMATOLOGICAL Hx Degenerative Joint Disease: Yes Hx Falls: No Other/Comment: generalized joint pains - GASTROINTESTINAL Hx Gastrointestinal Disorders: Yes Hx Gastritis: Yes - GENITOURINARY/GYNECOLOGICAL Hx Genitourinary Disorders: Yes (She has MERCEDEZ BSO) Other/Comment: ESRD - PSYCHIATRIC Hx Depression: Yes Hx Substance Use: No - SURGICAL HISTORY Hx Arteriovenous Shunt: Yes Hx Cholecystectomy: Yes - ANESTHESIA Hx Anesthesia: Yes Hx Anesthesia Reactions: No Hx Malignant Hyperthermia: No Meds Allergies/Adverse Reactions: Allergies Allergy/AdvReac Type Severity Reaction Status Date / Time No Known Allergies Allergy Verified 11/22/16 17:58 - Medications Medications: Current Medications Albuterol/Ipratropium (Duoneb 3 Mg/0.5 Mg (3 Ml) Ud) 3 ml INH RQ6 PRN PRN Reason: Shortness of Breath Amlodipine Besylate (Norvasc) 5 mg PO DAILY [facility] Aspirin (Aspirin Chewable) 81 mg PO DAILY [facility] Last Admin: 11/23/16 09:17 Dose: 81 mg Carvedilol (Coreg) 12.5 mg PO BID [facility] Last Admin: 11/23/16 17:25 Dose: 12.5 mg Epoetin Lobo (Procrit) 3,000 [facility] Hydralazine HCl (Apresoline) 50 mg PO TID [facility] Last Admin: 11/23/16 17:25 Dose: 50 mg Heparin Sodium/Sodium Chloride (Heparin 00587 Units/250ml 1/2 Normal Saline) 250 mls @ 8.709 mls/hr IV .Q24H PRN; Protocol; 12 UNITS/KG/HR PRN Reason: PROTOCOL Insulin Human Regular (Novolin R) 0 unit SC ACHS TYRONE PRN Reason: Protocol Last Admin: 11/23/16 17:19 Dose: Not Given Isosorbide Mononitrate (Imdur) 60 mg PO 0900 [facility] Levothyroxine Sodium (Synthroid) 100 mcg PO 0630 [facility] Lisinopril (Zestril) 20 mg PO DAILY [facility] Montelukast Sodium (Singulair) 10 mg PO DAILY [facility] Morphine Sulfate (Morphine) 2 mg IVP Q4 PRN PRN Reason: Pain, severe (8-10) Pantoprazole Sodium (Protonix Ec Tab) 40 mg PO DAILY [facility] Last Admin: 11/23/16 12:52 Dose: 40 mg Sevelamer Carbonate (Renvela) 2,400 mg PO TID [facility] Last Admin: 11/23/16 17:25 Dose: 2,400 mg Results - Vital Signs Recent Vital Signs: Last Vital Signs Temp 97.8 F 11/23/16 14:55 Pulse 116 H 11/23/16 14:55 Resp 16 11/23/16 14:55 BP 127/96 H 11/23/16 17:25 Pulse Ox 100 11/23/16 14:55 - Labs Result Diagrams: 11/22/16 19:40 11/23/16 09:11 Labs: Laboratory Results - last 24 hr 11/22/16 11/23/16 11/23/16 23:36 08:08 09:11 Sodium 132 Potassium 5.1 Chloride 89 L Carbon Dioxide 27 Anion Gap 21 H BUN 44 H Creatinine 6.2 H Est GFR ( Amer) 8 Est GFR (Non-Af Amer) 7 POC Glucose (mg/dL) 140 H 141 H Random Glucose 181 H Calcium 8.9 Phosphorus 4.2 Magnesium 2.1 Total Creatine Kinase 55 CK-MB (Mass) 0.88 Troponin I 0.0470 Troponin I, Quant 0.0470 11/23/16 11/23/16 12:12 16:12 Sodium Potassium Chloride Carbon Dioxide Anion Gap BUN Creatinine Est GFR ( Amer) Est GFR (Non-Af Amer) POC Glucose (mg/dL) 201 H 97 Random Glucose Calcium Phosphorus Magnesium Total Creatine Kinase CK-MB (Mass) Troponin I Troponin I, Quant
--- NOTE | 2016-11-23 18:34 | CARD ---
APPROVED REPORT EXAM: Two-dimensional and M-mode echocardiogram with Doppler and color Doppler. Other Information Quality : AverageRhythm : INDICATION CVA/TIA Chest Pain Congestive Heart Failure DIALYSIS RISK FACTORS Hypertension Hyperlipidemia Diabetes M-Mode DIMENSIONS RVDd2.25 (2.1-3.2cm)Left Atrium (MM)4.65 (2.5-4.0cm) IVSd2.18 (0.7-1.1cm)Aortic Root2.32 (2.2-3.7cm) LVDd2.91 (4.0-5.6cm)Aortic Cusp Exc.1.92 (1.5-2.0cm) PWd2.21 (0.7-1.1cm)FS (%) 43 % LVDs1.66 (2.0-3.8cm)LVEF (%)76 (>50%) Mitral Valve MV E Ooljpuzk26.0cm/sMV A Ldpdajqj322.9cm/sE/A ratio0.6 TDI E/Lateral E'0.0E/Medial E'0.0 Tricuspid Valve TR Peak Nvbulqrd853pr/sTR Peak Gr.85psKuVTGY16mcBh LEFT VENTRICLE There is moderate concentric left ventricular hypertrophy. The left ventricular systolic function is normal. The left ventricular ejection fraction is within the normal range. There is normal LV segmental wall motion. Transmitral Doppler flow pattern is Grade I-abnormal relaxation pattern. RIGHT VENTRICLE The right ventricular systolic function is normal. ATRIA The left atrium is moderately dilated. The right atrium is mildly dilated. AORTIC VALVE The aortic valve is mildly thickened but opens well. No aortic regurgitation is present. MITRAL VALVE Mitral annular calcification is moderate. The mitral valve leaflets appear normal. Mitral regurgitation is trace to mild. TRICUSPID VALVE The tricuspid valve is normal in structure. There is moderate tricuspid regurgitation. Right ventricular systolic pressure is estimated at 48 mmHg. There is moderate pulmonary hypertension. PULMONIC VALVE The pulmonary valve is normal in structure. GREAT VESSELS The IVC is slightly dilated but contracts well. PERICARDIAL EFFUSION There is a trace pericardial effusion. <Conclusion> There is moderate concentric left ventricular hypertrophy. The left ventricular systolic function is normal. There is normal LV segmental wall motion. Transmitral Doppler flow pattern is Grade I-abnormal relaxation pattern. The right ventricular systolic function is normal. The left atrium is moderately dilated. Mitral annular calcification is moderate. Mitral regurgitation is trace to mild. There is moderate tricuspid regurgitation. Right ventricular systolic pressure is estimated at 48 mmHg compatible with moderate pulmonary hypertension. There is a trace pericardial effusion.
--- NOTE | 2016-11-23 20:08 | CARD ---
APPROVED REPORT EKG Measurement Heart [id number] <Conclusion> Normal sinus rhythm Left axis deviation Poor R wave progression Abnormal ECG
[2016-11-24] MEDS: Levothyroxine 100 MCG TAB PO SCH (06:45)
[2016-11-24 06:47] LABS: POTASSIUM 4.4 mmol/L (3.6-5.2)
[2016-11-24 06:50] LABS: ALB/GLOB RATIO 1.1 (1.0-2.1); BILIRUBIN,TOTAL 0.5 mg/dL (0.2-1.3); TOTAL PROTEIN 6.1 g/dL (6.3-8.3)
[2016-11-24 06:51] LABS: PHOSPHOROUS 4.4 mg/dL (2.5-4.5)
[2016-11-24 06:54] LABS: BASO # 0.1 K/uL (0.0-0.2); BASO % 0.7 % (0.0-2.0); EOS # 0.3 K/uL (0.0-0.7); EOS % 2.9 % (0.0-4.0); HEMATOCRIT 26.3 % (34.0-47.0); LYMPH # 2.3 K/uL (1.0-4.3); LYMPH % 24.7 % (20.0-40.0); MEAN CELL VOLUME 87.1 fL (81.0-99.0); MEAN CORPUSCULAR HEMOGLOBIN 28.4 pg (27.0-31.0); MEAN CORPUSCULAR HGB CONC 32.6 g/dL (33.0-37.0); MEAN PLATELET VOLUME 10.1 fL (7.2-11.7); MONO % 11.1 % (0.0-10.0); RED CELL DISTRIBUTION WIDTH 15.6 % (11.5-14.5); WHITE BLOOD COUNT 9.2 K/uL (4.8-10.8)
[2016-11-24 07:17] LABS: THYROID STIMULATING HORMONE 5.89 mIU/L (0.46-4.68)
[2016-11-24] MEDS: (Novolin R) Insulin Human Regular 100 units/ml vial SC SCH ×4 (08:47→22:00)
[2016-11-24] MEDS ORDERED: Epoetin Alfa Dialysis 3000 UNIT/ML Inj IV SCH (09:00)
[2016-11-24] MEDS: Pantoprazole 40 mg EC Tab PO SCH (09:58)
[2016-11-24] MEDS ORDERED: Pantoprazole 40 mg EC Tab PO SCH (10:00)
--- NOTE | 2016-11-24 12:03 | CARD ---
APPROVED REPORT EKG Measurement Heart [id number] <Conclusion> Sinus tachycardia Left anterior fascicular block Anterior infarct, age undetermined Consider inferior ischemia Abnormal ECG
--- NOTE | 2016-11-24 14:34 | CP.PCM.PN ---
Subjective - Date & Time of Evaluation Date of Evaluation: 11/24/16 Time of Evaluation: 08:00 - Subjective Subjective: PGY [address] Schilling: Patient seen and examined at bedside this morning. Patient stated that she has no has any chest pain since the episodes yesterday in the morning. She states that her heart was beating "fast" in the afternoon of yesterday. Patient was noted to be in SVT and was given cardizem. Patient stated she felt a lot better today and was not short of breath. She still said that he left knee was swollen and mildly painful. She also said she would try getting and MRI done but would like medication before to calm her down because she is claustrophobic. She had no other complaints today. She had an extra session of dialysis yesterday but that she wanted to stop after 2 hours because the needle was bothering her and causing her some discomfort. She is due for dialysis today to be back on her regular MWF schedule. Objective - Vital Signs/Intake and Output Vital Signs (last 24 hours): Temp Pulse Resp BP Pulse Ox 98.1 F 68 15 123/71 100 11/24/16 12:00 11/24/16 12:00 11/24/16 12:00 11/24/16 14:12 11/24/16 10:40 - Medications Medications: Current Medications Albuterol/Ipratropium (Duoneb 3 Mg/0.5 Mg (3 Ml) Ud) 3 ml INH RQ6 PRN PRN Reason: Shortness of Breath Amlodipine Besylate (Norvasc) 5 mg PO DAILY [facility] Last Admin: 11/24/16 14:12 Dose: 5 mg Aspirin (Aspirin Chewable) 81 mg PO DAILY [facility] Last Admin: 11/24/16 09:58 Dose: 81 mg Carvedilol (Coreg) 12.5 mg PO BID [facility] Last Admin: 11/24/16 14:12 Dose: 12.5 mg Epoetin Lobo (Procrit) 3,000 unit IV MWF [facility] Last Admin: 11/24/16 12:03 Dose: 3,000 unit Hydralazine HCl (Apresoline) 25 mg PO TID [facility] Last Admin: 11/24/16 14:13 Dose: 25 mg Heparin Sodium/Sodium Chloride (Heparin 61064 Units/250ml 1/2 Normal Saline) 250 mls @ 8.709 mls/hr IV .Q24H PRN; Protocol; 12 UNITS/KG/HR PRN Reason: PROTOCOL Diltiazem HCl 125 mg/ Dextrose 125 mls @ 5 mls/hr IV .Q24H TYRONE; 5 MG/HR PRN Reason: Protocol Last Admin: 11/23/16 19:40 Dose: Not Given Insulin Human Regular (Novolin R) 0 unit SC ACHS [facility] PRN Reason: Protocol Last Admin: 11/24/16 12:06 Dose: Not Given Isosorbide Mononitrate (Imdur) 60 mg PO 0900 [facility] Last Admin: 11/24/16 14:12 Dose: 60 mg Levothyroxine Sodium (Synthroid) 100 mcg PO 0630 [facility] Last Admin: 11/24/16 06:45 Dose: 100 mcg Lisinopril (Zestril) 20 mg PO DAILY [facility] Last Admin: 11/24/16 14:12 Dose: 20 mg Lorazepam (Ativan) 2 mg IVP ONCE PRN PRN Reason: Sedation Montelukast Sodium (Singulair) 10 mg PO DAILY [facility] Last Admin: 11/24/16 09:58 Dose: 10 mg Morphine Sulfate (Morphine) 2 mg IVP Q4 PRN PRN Reason: Pain, severe (8-10) Pantoprazole Sodium (Protonix Ec Tab) 40 mg PO DAILY [facility] Last Admin: 11/24/16 09:58 Dose: 40 mg Sevelamer Carbonate (Renvela) 2,400 mg PO TID [facility] Last Admin: 11/24/16 14:12 Dose: 2,400 mg - Labs Labs: PT 10.3 SECONDS (9.7-12.2) 11/22/16 19:40 INR 0.9 11/22/16 19:40 APTT 31 SECONDS (21-34) 11/22/16 19:40 - Constitutional Appears: Non-toxic, No Acute Distress - Head Exam Head Exam: ATRAUMATIC, NORMAL INSPECTION - Eye Exam Eye Exam: EOMI, Normal appearance, PERRL Pupil Exam: NORMAL ACCOMODATION - ENT Exam ENT Exam: Mucous Membranes Moist - Respiratory Exam Respiratory Exam: Clear to Ausculation Bilateral, NORMAL BREATHING PATTERN. absent: Respiratory Distress - Cardiovascular Exam Cardiovascular Exam: REGULAR RHYTHM, +S1, +S2 - GI/Abdominal Exam GI & Abdominal Exam: Soft, Normal Bowel Sounds. absent: Distended, Firm, Guarding, Tenderness - Extremities Exam Extremities Exam: absent: Calf Tenderness, Pedal Edema Additional comments: L knee swollen, no erythema - Back Exam Back Exam: NORMAL INSPECTION. absent: CVA tenderness (L), CVA tenderness (R), paraspinal tenderness - Neurological Exam Neurological Exam: Alert, Awake, CN II-XII Intact, Oriented x3 - Psychiatric Exam Psychiatric exam: Normal Affect, Normal Mood - Skin Skin Exam: Dry, Intact, Normal Color, Warm Assessment and Plan - Assessment and Plan (Free Text) Assessment: Chestpain Dr. Guzmán consulted help appreciated NSR today HR ~70s Cardiac enzymes neg x 3 Active chest pain this AM Morphine to be given as needed Hep drip discontinued Given cardizem yesterday of SVT f/u new EKG, and Echo f/u AM labs ESRD For HD today HD: 2 hour 15 min on 11/22, 2 hour 11/23 Consulted Biometrics Head, Dr. Pina, help appreciated Schedule: MWF L Suprapatellar Effusion Patient refusing MRI right now due to fear of cluasterphobia Will attempt MRI today w/o contrast with Ativan 2mg IVP to be given 30 min before On recent admission: L Knee X-RAY: Degenerative arthritic changes with large suprapatellar effusion Tylenol 650 mg po PRN for pain gram stain few WBC and no organisms fluid cell count WBC 2561 77% polys RBC [id number] negative crystals not consistent with infection or gout consistent with hemarthrosis, unclear etiology no orthopedic intervention indicated at this time PT/OT 11/19 (limit weight bearing due to pain at this time) cultures - no growth DMII hemoglobin a1c - 6.6 RISS Accuchecks Monitor sugar CAD Continue home medications: Carvidolol 12.5 mg po BID ASA 81 mg po daily Lisinopril 20 mg po daily Isosorbide mononitrate 60 mg po 0900 lipid panel - triglyc 271H, Cholest 132, LDL45, HDL25 Hypertension Continue home medications: Hydralazine 50 mg po TID Norvasc 5 mg po daily Lisinopril 20mg PO daily Monitor Hypothyroidism Continue home medication Levothyroxine 100 mcg po daily Asthma Continue home medication Monteleukast Duoneb RQH PRN for shortness of breath GERD Protonix 40 mg po daily Sleep Apnea CPAP at night Prophylaxis SCD Protonix
--- NOTE | 2016-11-24 17:46 | MRI ---
PROCEDURE: MRI Left Knee HISTORY: Left knee effusion COMPARISON: None available. TECHNIQUE: Multiecho multiplanar sequences were performed through the left knee. FINDINGS: The study is limited due to patient's motion. ANTERIOR CRUCIATE LIGAMENT:: The ACL is not clearly visualized. POSTERIOR CRUCIATE LIGAMENT:: Intact. MEDIAL MENISCUS:: Moderate to large body and posterior horn medial meniscus tear seen LATERAL MENISCUS:: Large tear involving the body and anterior and posterior horns of the lateral meniscus. MEDIAL COLLATERAL LIGAMENT:: Not clearly visualized. LATERAL COLLATERAL LIGAMENT COMPLEX:: Not clearly visualized. QUADRICEPS TENDON:: No evidence of acute pathology. PATELLAR TENDON:: No evidence of acute pathology. CARTILAGE:: Severe destruction of the left knee cartilage likely due to advanced osteoarthritic changes. JOINT FLUID:: Large joint effusion and heterogeneous signal seen more prominent in the suprapatellar region. There is popliteal cyst also noted measures 2.8 centimeter in the largest transverse diameter and 4.7 centimeter in the longitudinal diameter. OSSEOUS STRUCTURES:: Advanced osteoarthritic changes and marginal osteophyte formation are seen. No evidence of acute pathology or destructive bony lesion. OTHER FINDINGS: Mild soft tissue edema surrounding the left knee. IMPRESSION: Limited study due to the patient's motion. Large joint effusion. Advanced osteoarthritic changes. Medial and lateral meniscal tears . The ACL is not clearly visualized. Popliteal cyst measures approximately 2.8 x 4.7 centimeter.
--- NOTE | 2016-11-24 18:23 | CP.PCM.PN ---
Subjective - Date & Time of Evaluation Date of Evaluation: 11/24/16 Time of Evaluation: 06:00 - Subjective Subjective: Feels better today Objective - Vital Signs/Intake and Output Vital Signs (last 24 hours): Temp Pulse Resp BP Pulse Ox 97.5 F L 79 13 130/71 100 11/24/16 16:54 11/24/16 16:54 11/24/16 16:54 11/24/16 17:07 11/24/16 10:40 - Medications Medications: Current Medications Albuterol/Ipratropium (Duoneb 3 Mg/0.5 Mg (3 Ml) Ud) 3 ml INH RQ6 PRN PRN Reason: Shortness of Breath Amlodipine Besylate (Norvasc) 5 mg PO DAILY [facility] Last Admin: 11/24/16 14:12 Dose: 5 mg Aspirin (Aspirin Chewable) 81 mg PO DAILY [facility] Last Admin: 11/24/16 09:58 Dose: 81 mg Carvedilol (Coreg) 12.5 mg PO BID [facility] Last Admin: 11/24/16 17:07 Dose: 12.5 mg Epoetin Lobo (Procrit) 3,000 unit IV MWF [facility] Last Admin: 11/24/16 12:03 Dose: 3,000 unit Heparin Sodium (Porcine) (Heparin) 5,000 units SC Q8 [facility] Last Admin: 11/24/16 17:08 Dose: 5,000 units Hydralazine HCl (Apresoline) 25 mg PO TID [facility] Last Admin: 11/24/16 17:07 Dose: 25 mg Heparin Sodium/Sodium Chloride (Heparin 59102 Units/250ml 1/2 Normal Saline) 250 mls @ 8.709 mls/hr IV .Q24H PRN; Protocol; 12 UNITS/KG/HR PRN Reason: PROTOCOL Diltiazem HCl 125 mg/ Dextrose 125 mls @ 5 mls/hr IV .Q24H TYRONE; 5 MG/HR PRN Reason: Protocol Last Admin: 11/23/16 19:40 Dose: Not Given Insulin Human Regular (Novolin R) 0 unit SC ACHS [facility] PRN Reason: Protocol Last Admin: 11/24/16 17:09 Dose: 3 unit Isosorbide Mononitrate (Imdur) 60 mg PO 0900 [facility] Last Admin: 11/24/16 14:12 Dose: 60 mg Levothyroxine Sodium (Synthroid) 100 mcg PO 0630 [facility] Last Admin: 11/24/16 06:45 Dose: 100 mcg Lisinopril (Zestril) 20 mg PO DAILY [facility] Last Admin: 11/24/16 14:12 Dose: 20 mg Lorazepam (Ativan) 2 mg IVP ONCE PRN PRN Reason: Sedation Last Admin: 11/24/16 15:39 Dose: 2 mg Montelukast Sodium (Singulair) 10 mg PO DAILY [facility] Last Admin: 11/24/16 09:58 Dose: 10 mg Morphine Sulfate (Morphine) 2 mg IVP Q4 PRN PRN Reason: Pain, severe (8-10) Pantoprazole Sodium (Protonix Ec Tab) 40 mg PO DAILY [facility] Last Admin: 11/24/16 09:58 Dose: 40 mg Sevelamer Carbonate (Renvela) 2,400 mg PO TID [facility] Last Admin: 11/24/16 14:12 Dose: 2,400 mg - Labs Labs: PT 10.3 SECONDS (9.7-12.2) 11/22/16 19:40 INR 0.9 11/22/16 19:40 APTT 31 SECONDS (21-34) 11/22/16 19:40 - Respiratory Exam Additional comments: Lungs clear - Cardiovascular Exam Cardiovascular Exam: REGULAR RHYTHM - GI/Abdominal Exam GI & Abdominal Exam: Soft - Extremities Exam Additional comments: No pedal edema Lt knee swelling Assessment and Plan - Assessment and Plan (Free Text) Assessment: ESRD SVT HTN Anemia Plan: Stable on dialysis. Continue HD @ MWF schedule Increase Epogen dose
--- NOTE | 2016-11-24 19:41 | CP.PCM.PN ---
Subjective - Date & Time of Evaluation Date of Evaluation: 11/24/16 Time of Evaluation: 19:35 - Subjective Subjective: patient feels well. No chest pain. Objective - Vital Signs/Intake and Output Vital Signs (last 24 hours): Temp Pulse Resp BP Pulse Ox 97.5 F L 79 13 130/71 100 11/24/16 16:54 11/24/16 16:54 11/24/16 16:54 11/24/16 17:07 11/24/16 10:40 - Medications Medications: Current Medications Albuterol/Ipratropium (Duoneb 3 Mg/0.5 Mg (3 Ml) Ud) 3 ml INH RQ6 PRN PRN Reason: Shortness of Breath Amlodipine Besylate (Norvasc) 5 mg PO DAILY [facility] Last Admin: 11/24/16 14:12 Dose: 5 mg Aspirin (Aspirin Chewable) 81 mg PO DAILY [facility] Last Admin: 11/24/16 09:58 Dose: 81 mg Carvedilol (Coreg) 12.5 mg PO BID [facility] Last Admin: 11/24/16 17:07 Dose: 12.5 mg Epoetin Lobo (Procrit) 6,000 unit IV TTS [facility] Heparin Sodium (Porcine) (Heparin) 5,000 units SC Q8 [facility] Last Admin: 11/24/16 17:08 Dose: 5,000 units Hydralazine HCl (Apresoline) 25 mg PO TID [facility] Last Admin: 11/24/16 17:07 Dose: 25 mg Heparin Sodium/Sodium Chloride (Heparin 69557 Units/250ml 1/2 Normal Saline) 250 mls @ 8.709 mls/hr IV .Q24H PRN; Protocol; 12 UNITS/KG/HR PRN Reason: PROTOCOL Diltiazem HCl 125 mg/ Dextrose 125 mls @ 5 mls/hr IV .Q24H TYRONE; 5 MG/HR PRN Reason: Protocol Last Admin: 11/23/16 19:40 Dose: Not Given Insulin Human Regular (Novolin R) 0 unit SC ACHS [facility] PRN Reason: Protocol Last Admin: 11/24/16 17:09 Dose: 3 unit Isosorbide Mononitrate (Imdur) 60 mg PO 0900 [facility] Last Admin: 11/24/16 14:12 Dose: 60 mg Levothyroxine Sodium (Synthroid) 100 mcg PO 0630 [facility] Last Admin: 11/24/16 06:45 Dose: 100 mcg Lisinopril (Zestril) 20 mg PO DAILY [facility] Last Admin: 11/24/16 14:12 Dose: 20 mg Lorazepam (Ativan) 2 mg IVP ONCE PRN PRN Reason: Sedation Last Admin: 11/24/16 15:39 Dose: 2 mg Montelukast Sodium (Singulair) 10 mg PO DAILY [facility] Last Admin: 11/24/16 09:58 Dose: 10 mg Morphine Sulfate (Morphine) 2 mg IVP Q4 PRN PRN Reason: Pain, severe (8-10) Pantoprazole Sodium (Protonix Ec Tab) 40 mg PO DAILY [facility] Last Admin: 11/24/16 09:58 Dose: 40 mg Sevelamer Carbonate (Renvela) 2,400 mg PO TID [facility] Last Admin: 11/24/16 14:12 Dose: 2,400 mg - Labs Labs: PT 10.3 SECONDS (9.7-12.2) 11/22/16 19:40 INR 0.9 11/22/16 19:40 APTT 31 SECONDS (21-34) 11/22/16 19:40 - Constitutional Appears: Non-toxic - Head Exam Head Exam: NORMAL INSPECTION - Eye Exam Eye Exam: Normal appearance - ENT Exam ENT Exam: Mucous Membranes Moist - Neck Exam Neck Exam: Full ROM - Respiratory Exam Respiratory Exam: NORMAL BREATHING PATTERN - Cardiovascular Exam Cardiovascular Exam: REGULAR RHYTHM - GI/Abdominal Exam GI & Abdominal Exam: Normal Bowel Sounds - Rectal Exam Rectal Exam: Deferred - Extremities Exam Extremities Exam: absent: Pedal Edema - Back Exam Back Exam: NORMAL INSPECTION - Neurological Exam Neurological Exam: Alert - Psychiatric Exam Psychiatric exam: Normal Affect - Skin Skin Exam: Normal Color Assessment and Plan (1) SVT (supraventricular tachycardia) Assessment & Plan: resolved, now in sinus rhythm. continue medical therapy Status: Acute (2) Chronic congestive heart failure Assessment & Plan: likely diastolic dysfunction. can increase Coreg. Status: Chronic (3) Diabetes mellitus type 2 in obese Assessment & Plan: medical therapy Status: Chronic (4) Hypertension Assessment & Plan: increase Coreg Status: Chronic
[2016-11-25 02:10] VITALS: PULSE 76; O2SAT 99
[2016-11-25 06:40] LABS: BASO # 0.1 K/uL (0.0-0.2); BASO % 1.1 % (0.0-2.0); EOS # 0.4 K/uL (0.0-0.7); EOS % 4.4 % (0.0-4.0); HEMATOCRIT 28.4 % (34.0-47.0); LYMPH # 2.3 K/uL (1.0-4.3); LYMPH % 25.9 % (20.0-40.0); MEAN CELL VOLUME 87.7 fL (81.0-99.0); MEAN CORPUSCULAR HEMOGLOBIN 27.6 pg (27.0-31.0); MEAN CORPUSCULAR HGB CONC 31.5 g/dL (33.0-37.0); MEAN PLATELET VOLUME 9.9 fL (7.2-11.7); MONO % 11.6 % (0.0-10.0); RED CELL DISTRIBUTION WIDTH 15.4 % (11.5-14.5); WHITE BLOOD COUNT 8.9 K/uL (4.8-10.8)
[2016-11-25 06:41] LABS: POTASSIUM 4.8 mmol/L (3.6-5.2)
[2016-11-25 06:43] LABS: ALB/GLOB RATIO 1.1 (1.0-2.1); BILIRUBIN,TOTAL 0.3 mg/dL (0.2-1.3); TOTAL PROTEIN 6.6 g/dL (6.3-8.3)
[2016-11-25 06:44] LABS: PHOSPHOROUS 3.8 mg/dL (2.5-4.5)
[2016-11-25] MEDS: Levothyroxine 100 MCG TAB PO SCH (06:54)
[2016-11-25 07:05] VITALS: RESP 18
--- NOTE | 2016-11-25 08:13 | CP.PCM.PN ---
Subjective - Date & Time of Evaluation Date of Evaluation: 11/25/16 Time of Evaluation: 08:05 - Subjective Subjective: patient feels well. no chest pain or palpitations Objective - Vital Signs/Intake and Output Vital Signs (last 24 hours): Temp Pulse Resp BP Pulse Ox 98.4 F 76 18 147/64 99 11/25/16 04:00 11/25/16 04:00 11/25/16 04:00 11/25/16 04:00 11/25/16 04:00 Intake and Output: 11/25/16 11/25/16 06:59 18:59 Intake Total 170 Output Total 50 Balance 120 - Medications Medications: Current Medications Albuterol/Ipratropium (Duoneb 3 Mg/0.5 Mg (3 Ml) Ud) 3 ml INH RQ6 PRN PRN Reason: Shortness of Breath Amlodipine Besylate (Norvasc) 5 mg PO DAILY [facility] Last Admin: 11/24/16 14:12 Dose: 5 mg Aspirin (Aspirin Chewable) 81 mg PO DAILY [facility] Last Admin: 11/24/16 09:58 Dose: 81 mg Carvedilol (Coreg) 12.5 mg PO BID [facility] Last Admin: 11/24/16 17:07 Dose: 12.5 mg Epoetin Lobo (Procrit) 6,000 unit IV TTS [facility] Heparin Sodium (Porcine) (Heparin) 5,000 units SC Q8 [facility] Last Admin: 11/25/16 06:54 Dose: 5,000 units Hydralazine HCl (Apresoline) 25 mg PO TID [facility] Last Admin: 11/24/16 17:07 Dose: 25 mg Heparin Sodium/Sodium Chloride (Heparin 21402 Units/250ml 1/2 Normal Saline) 250 mls @ 8.709 mls/hr IV .Q24H PRN; Protocol; 12 UNITS/KG/HR PRN Reason: PROTOCOL Diltiazem HCl 125 mg/ Dextrose 125 mls @ 5 mls/hr IV .Q24H TYRONE; 5 MG/HR PRN Reason: Protocol Last Admin: 11/23/16 19:40 Dose: Not Given Insulin Human Regular (Novolin R) 0 unit SC ACHS [facility] PRN Reason: Protocol Last Admin: 11/24/16 22:00 Dose: Not Given Isosorbide Mononitrate (Imdur) 60 mg PO 0900 [facility] Last Admin: 11/24/16 14:12 Dose: 60 mg Levothyroxine Sodium (Synthroid) 100 mcg PO 0630 [facility] Last Admin: 11/25/16 06:54 Dose: 100 mcg Lisinopril (Zestril) 20 mg PO DAILY [facility] Last Admin: 11/24/16 14:12 Dose: 20 mg Lorazepam (Ativan) 2 mg IVP ONCE PRN PRN Reason: Sedation Last Admin: 11/24/16 15:39 Dose: 2 mg Montelukast Sodium (Singulair) 10 mg PO DAILY [facility] Last Admin: 11/24/16 09:58 Dose: 10 mg Morphine Sulfate (Morphine) 2 mg IVP Q4 PRN PRN Reason: Pain, severe (8-10) Last Admin: 11/24/16 21:04 Dose: 2 mg Pantoprazole Sodium (Protonix Ec Tab) 40 mg PO DAILY [facility] Last Admin: 11/24/16 09:58 Dose: 40 mg Sevelamer Carbonate (Renvela) 2,400 mg PO TID [facility] Last Admin: 11/24/16 18:00 Dose: 2,400 mg - Labs Labs: 11/25/16 06:25 11/25/16 06:25 PT 10.3 SECONDS (9.7-12.2) 11/22/16 19:40 INR 0.9 11/22/16 19:40 APTT 31 SECONDS (21-34) 11/22/16 19:40 - Constitutional Appears: Non-toxic - Head Exam Head Exam: NORMAL INSPECTION - Eye Exam Eye Exam: Normal appearance - ENT Exam ENT Exam: Mucous Membranes Moist - Neck Exam Neck Exam: Full ROM - Respiratory Exam Respiratory Exam: NORMAL BREATHING PATTERN - Cardiovascular Exam Cardiovascular Exam: REGULAR RHYTHM - GI/Abdominal Exam GI & Abdominal Exam: Normal Bowel Sounds - Extremities Exam Extremities Exam: Pedal Edema - Back Exam Back Exam: NORMAL INSPECTION - Neurological Exam Neurological Exam: Alert - Psychiatric Exam Psychiatric exam: Normal Affect - Skin Skin Exam: Normal Color Assessment and Plan (1) SVT (supraventricular tachycardia) Assessment & Plan: normal sinus rhythm. recommend titration of beta johanna. will schedule outpatient monitor. stable for discharge Status: Acute (2) Chronic congestive heart failure Assessment & Plan: acute on chronic diastolic function Status: Chronic (3) Diabetes mellitus type 2 in obese Assessment & Plan: manage blood sugar. Status: Chronic (4) Hypertension Assessment & Plan: increase Coreg. Status: Chronic
[2016-11-25] MEDS ORDERED: Epoetin Alfa Dialysis 3000 UNIT/ML Inj IV SCH (10:00)
[2016-11-25] MEDS ORDERED: Tramadol 25 mg PO PRN (10:42)
[2016-11-25] MEDS: (Novolin R) Insulin Human Regular 100 units/ml vial SC SCH ×3 (11:25→17:15)
[2016-11-25] MEDS: Pantoprazole 40 mg EC Tab PO SCH (11:27)
--- NOTE | 2016-11-25 13:57 | CP.PCM.DIS ---
<Claudette Jackson - Last Filed: 11/25/16 15:07> Provider - Provider Date of Admission: 11/24/16 09:42 Attending physician: Morgan Schilling MD Primary care physician: PMD: Dr. Gill Consults: Dr. Guzmán - cardiology Time Spent in preparation of Discharge (in minutes): 35 Hospital Course - Lab Results Lab Results: Most Recent Lab Values WBC 8.9 K/uL (4.8-10.8) 11/25/16 06:25 RBC 3.23 Mil/uL (3.80-5.20) L 11/25/16 06:25 Hgb 8.9 g/dL (11.0-16.0) L 11/25/16 06:25 Hct 28.4 % (34.0-47.0) L 11/25/16 06:25 MCV 87.7 fL (81.0-99.0) 11/25/16 06:25 MCH 27.6 pg (27.0-31.0) 11/25/16 06:25 MCHC 31.5 g/dL (33.0-37.0) L 11/25/16 06:25 RDW 15.4 % (11.5-14.5) H 11/25/16 06:25 Plt Count 180 K/uL (130-400) 11/25/16 06:25 MPV 9.9 fL (7.2-11.7) 11/25/16 06:25 Neut % (Auto) 57.0 % (50.0-75.0) 11/25/16 06:25 Lymph % (Auto) 25.9 % (20.0-40.0) 11/25/16 06:25 [place] % (Auto) 11.6 % (0.0-10.0) H 11/25/16 06:25 Eos % (Auto) 4.4 % (0.0-4.0) H 11/25/16 06:25 Baso % (Auto) 1.1 % (0.0-2.0) 11/25/16 06:25 Neut # 5.1 K/uL (1.8-7.0) 11/25/16 06:25 Lymph # 2.3 K/uL (1.0-4.3) 11/25/16 06:25 [place] # 1.0 K/uL (0.0-0.8) H 11/25/16 06:25 Eos # 0.4 K/uL (0.0-0.7) 11/25/16 06:25 Baso # 0.1 K/uL (0.0-0.2) 11/25/16 06:25 PT 10.3 SECONDS (9.7-12.2) 11/22/16 19:40 INR 0.9 11/22/16 19:40 APTT 31 SECONDS (21-34) 11/22/16 19:40 Sodium 137 mmol/L (132-148) 11/25/16 06:25 Potassium 4.8 mmol/L (3.6-5.2) 11/25/16 06:25 Chloride 94 mmol/L (98-107) L 11/25/16 06:25 Carbon Dioxide 29 mmol/L (22-30) 11/25/16 06:25 Anion Gap 19 (10-20) 11/25/16 06:25 BUN 26 mg/dL (7-17) H 11/25/16 06:25 Creatinine 4.8 MG/DL (0.7-1.2) H 11/25/16 06:25 Est GFR ( Amer) 11 11/25/16 06:25 Est GFR (Non-Af Amer) 9 11/25/16 06:25 POC Glucose (mg/dL) 180 mg/dL (65-110) H 11/25/16 11:41 Random Glucose 141 mg/dL (65-105) H 11/25/16 06:25 Calcium 9.0 mg/dl (8.6-10.4) 11/25/16 06:25 Phosphorus 3.8 mg/dL (2.5-4.5) 11/25/16 06:25 Magnesium 2.0 mg/dL (1.6-2.3) 11/25/16 06:25 Total Bilirubin 0.3 mg/dL (0.2-1.3) 11/25/16 06:25 AST 18 U/L (14-36) 11/25/16 06:25 ALT 10 U/L (9-52) 11/25/16 06:25 Alkaline Phosphatase 115 U/L (38-126) 11/25/16 06:25 Total Creatine Kinase 55 U/L (30-135) 11/23/16 09:11 CK-MB (Mass) 0.88 ng/mL (0.0-3.38) 11/23/16 09:11 Troponin I 0.0470 ng/mL (0.00-0.120) 11/23/16 09:11 Troponin I, Quant 0.0470 ng/mL (0.00-0.120) 11/23/16 09:11 Total Protein 6.6 g/dL (6.3-8.3) 11/25/16 06:25 Albumin 3.4 g/dL (3.5-5.0) L 11/25/16 06:25 Globulin 3.2 gm/dL (2.2-3.9) 11/25/16 06:25 Albumin/Globulin Ratio 1.1 (1.0-2.1) 11/25/16 06:25 TSH 3rd Generation 5.89 mIU/L (0.46-4.68) H 11/24/16 06:30 - Hospital Course Hospital Course: PMD: Dr. Gill Anesthesia Director: Dr. Umberto Pina PMH: ESRD on HD, chronic shoulder and knee pain, DMII, HTN, CVA with R hemiparesis, CAD, HLD, Hypothyroidism, Asthma, Sleep Apnea Medications: Norvasc 5 mg po qd, Lisinopril 20 mg po daily, Hydralazine 50 mg po TID, Carvedilol 12.5 mg po BID, Isosorbide 60 mg po 0900, Minoxidil 2.5 mg po 0900, 2200, ASA 81 mg po daily, Sevelamer 3 mg po TID, Levothyroxine 100 mcg po daily, Monteleukast 1 mg po daily, Omeprazole 40 mg po daily Family Hx: Mother - on CA in 40s Surgical Hx: L arm fistula, cholecystectomy, total abdominal hysterectomy and b/ l oopherectomy Social: Never smoker. Denies alcohol and illicit drug use. On admission: 61 year old patient, with a past medical history of diabetes, gastritis, end stage renal disease, hypertension, and cardic arrhythmia, presents to the ED complaining of dizziness and mild headache that began yesterday during dialysis. Patient is a hemodialysis patient for Tuesday, Tuesday and Tuesday. Patient complained of her symptoms during her session which lasted 2 hours and 15 minutes. pt reports reslved palpitations and cp. The symptoms have resolved now. The patient was stating she was mildly SOB since her dialysis. Patient denies fever, vision change, nausea, vomiting, neck pain, numbness, weakness, or any other complaints at this time. This morning the patient complained of chest pain. She was tachycardic into the 130s. BP was controlled. Cardiac enzymes were checked. CT Angio was sent and was negative for PE. Patient was started on Hearin drip for ACS protocol. During Hospital Stay: Patient was complaining of chest pain with dialysis. Dr. Guzmán, cardiology was consulted. She had a couple episodes of chest pain while in the hospital, which she states now have resolved. She had an echo done which showed a normal EF. CT Angio was done and was negative for PE. At one point she was noted to be in SVT and was given cardizem. Today she has been in NSR with HR ~70s. Cardiac enzymes were negative 3 times. Patient was given Coreg 12.5 mg PO daily and ASA 81 mg daily. She was given an extra session of dialysis on Tuesday during her stay then also had dialysis on Tuesday part of her normal MWF schedule. Patient' SOB resolved. Patient also has a L sided suprepatellar knee effusion. The joint was aspirated and the cultures grew out netive. No signs of infection. She was able to get the MRI done which showed joint effusion, medial and lateral meniscal tears, popilteal cyat 2.8 x 4.7 cm and adavnced osteoarthritis. Patient was given Tramadol for her pain. Patient's sugar was controlled during her hospital stay. She was continued on her home medication Levothyroxine 100 mcg po daily: Hydralazine 50 mg po TID, Norvasc 5 mg po daily, Lisinopril 20mg PO daily Patient was continued on her home asthma med Montelukast and was given Duonebs breathing treatments PRN. Patient stable for discharge to [facility] per cardiology. Patient is to follow up with her primary care doctor within one week of discharge. Patient is also to follow up with cardiology, Dr. Guzmán, within one week of discharge. Patient to follow up with nephrology and continue your normal dialysis schedule. Please resume all medications. Return the emergency room if symptoms resume. Please make an appointment and follow up with Dr. Bolivar (orthopedic doctor) as outpatient [phone]. He will further evaluate and treat your Left knee hemarthrosis (no trauma) and Left knee severe DJD. MRI was done on this admission. All instructions explained to the patient and she agrees. Discharge Exam - Head Exam Head Exam: NORMAL INSPECTION - Eye Exam Eye Exam: EOMI, Normal appearance, PERRL Pupil Exam: NORMAL ACCOMODATION - ENT Exam ENT Exam: Mucous Membranes Moist - Respiratory Exam Respiratory Exam: Clear to PA & Lateral, NORMAL BREATHING PATTERN. absent: Accessory Muscle Use, Chest Wall Tenderness, Rales, Rhonchi, Wheezes, Respiratory Distress, UNREMARKABLE - Cardiovascular Exam Cardiovascular Exam: REGULAR RHYTHM, +S1, +S2 - GI/Abdominal Exam GI & Abdominal Exam: Normal Bowel Sounds, Soft. absent: Distended, Firm, Guarding, Tenderness - Extremities Exam Extremities exam: normal inspection, pedal edema Additional comments: L knee effusion, no sign of infection - Back Exam Back exam: NORMAL INSPECTION. absent: CVA tenderness (L), CVA tenderness (R), paraspinal tenderness - Neurological Exam Neurological exam: Alert, CN II-XII Intact, Oriented x3, Reflexes Normal - Psychiatric Exam Psychiatric exam: Normal Affect, Normal Mood - Skin Skin Exam: Dry, Intact, Normal Color, Warm Discharge Plan - Discharge Medications Prescriptions: Tramadol HCl [Ultram] 25 mg PO Q12 PRN #24 tablet PRN Reason: Pain, Moderate (4-7) - Follow Up Plan Condition: STABLE Disposition: OTHER INSTITUTION Instructions: Acute Headache (ED), Dizziness (ED) Additional Instructions: Patient stable for discharge to [facility] per cardiology. Patient is to follow up with her primary care doctor within one week of discharge. Patient is also to follow up with cardiology, Dr. Guzmán, within one week of discharge. Patient to follow up with nephrology and continue your normal dialysis schedule. Please resume all medications. Return the emergency room if symptoms resume. Please make an appointment and follow up with Dr. Bolivar (orthopedic doctor) as outpatient [phone]. He will further evaluate and treat your Left knee hemarthrosis (no trauma) and Left knee severe DJD. MRI was done on this admission. All instructions explained to the patient and she agrees. Referrals: Kaylee Candelario MD [Staff Provider] - Jeovany Bolivar MD [Staff Provider] - Myrna Guzmán MD [Staff Provider] - <Jace Franco M - Last Filed: 11/25/16 20:48> Provider - Provider Date of Admission: 11/24/16 09:42 Attending physician: Morgan Schilling MD Hospital Course - Lab Results Lab Results: Most Recent Lab Values WBC 8.9 K/uL (4.8-10.8) 11/25/16 06:25 RBC 3.23 Mil/uL (3.80-5.20) L 11/25/16 06:25 Hgb 8.9 g/dL (11.0-16.0) L 11/25/16 06:25 Hct 28.4 % (34.0-47.0) L 11/25/16 06:25 MCV 87.7 fL (81.0-99.0) 11/25/16 06:25 MCH 27.6 pg (27.0-31.0) 11/25/16 06:25 MCHC 31.5 g/dL (33.0-37.0) L 11/25/16 06:25 RDW 15.4 % (11.5-14.5) H 11/25/16 06:25 Plt Count 180 K/uL (130-400) 11/25/16 06:25 MPV 9.9 fL (7.2-11.7) 11/25/16 06:25 Neut % (Auto) 57.0 % (50.0-75.0) 11/25/16 06:25 Lymph % (Auto) 25.9 % (20.0-40.0) 11/25/16 06:25 [place] % (Auto) 11.6 % (0.0-10.0) H 11/25/16 06:25 Eos % (Auto) 4.4 % (0.0-4.0) H 11/25/16 06:25 Baso % (Auto) 1.1 % (0.0-2.0) 11/25/16 06:25 Neut # 5.1 K/uL (1.8-7.0) 11/25/16 06:25 Lymph # 2.3 K/uL (1.0-4.3) 11/25/16 06:25 [place] # 1.0 K/uL (0.0-0.8) H 11/25/16 06:25 Eos # 0.4 K/uL (0.0-0.7) 11/25/16 06:25 Baso # 0.1 K/uL (0.0-0.2) 11/25/16 06:25 PT 10.3 SECONDS (9.7-12.2) 11/22/16 19:40 INR 0.9 11/22/16 19:40 APTT 31 SECONDS (21-34) 11/22/16 19:40 Sodium 137 mmol/L (132-148) 11/25/16 06:25 Potassium 4.8 mmol/L (3.6-5.2) 11/25/16 06:25 Chloride 94 mmol/L (98-107) L 11/25/16 06:25 Carbon Dioxide 29 mmol/L (22-30) 11/25/16 06:25 Anion Gap 19 (10-20) 11/25/16 06:25 BUN 26 mg/dL (7-17) H 11/25/16 06:25 Creatinine 4.8 MG/DL (0.7-1.2) H 11/25/16 06:25 Est GFR ( Amer) 11 11/25/16 06:25 Est GFR (Non-Af Amer) 9 11/25/16 06:25 POC Glucose (mg/dL) 214 mg/dL (65-110) H 11/25/16 16:13 Random Glucose 141 mg/dL (65-105) H 11/25/16 06:25 Calcium 9.0 mg/dl (8.6-10.4) 11/25/16 06:25 Phosphorus 3.8 mg/dL (2.5-4.5) 11/25/16 06:25 Magnesium 2.0 mg/dL (1.6-2.3) 11/25/16 06:25 Total Bilirubin 0.3 mg/dL (0.2-1.3) 11/25/16 06:25 AST 18 U/L (14-36) 11/25/16 06:25 ALT 10 U/L (9-52) 11/25/16 06:25 Alkaline Phosphatase 115 U/L (38-126) 11/25/16 06:25 Total Creatine Kinase 55 U/L (30-135) 11/23/16 09:11 CK-MB (Mass) 0.88 ng/mL (0.0-3.38) 11/23/16 09:11 Troponin I 0.0470 ng/mL (0.00-0.120) 11/23/16 09:11 Troponin I, Quant 0.0470 ng/mL (0.00-0.120) 11/23/16 09:11 Total Protein 6.6 g/dL (6.3-8.3) 11/25/16 06:25 Albumin 3.4 g/dL (3.5-5.0) L 11/25/16 06:25 Globulin 3.2 gm/dL (2.2-3.9) 11/25/16 06:25 Albumin/Globulin Ratio 1.1 (1.0-2.1) 11/25/16 06:25 TSH 3rd Generation 5.89 mIU/L (0.46-4.68) H 11/24/16 06:30 Attending/Attestation - Attestation I have personally seen and examined this patient.: Yes I have fully participated in the care of the patient.: Yes I have reviewed all pertinent clinical information, including history, physical exam and plan: Yes Notes (Text): 11/25/16 20:46 patient was seen and examined at bedside with the resident Patient appears comfortable and does not have any palpitations Patient is been cleared for discharge by cardiology I discussed the discharge plan with the resident and agree with the above discharge note by the resident
[2016-11-25 16:38] VITALS: TEMP 97.8
--- NOTE | 2016-11-25 16:54 | CP.PCM.PN ---
Subjective - Date & Time of Evaluation Date of Evaluation: 11/25/16 Time of Evaluation: 04:40 - Subjective Subjective: Appears comfortable No c/o palp Objective - Vital Signs/Intake and Output Vital Signs (last 24 hours): Temp Pulse Resp BP Pulse Ox 97.8 F 76 18 164/75 H 99 11/25/16 16:00 11/25/16 08:00 11/25/16 04:00 11/25/16 13:16 11/25/16 04:00 Intake and Output: 11/25/16 11/25/16 06:59 18:59 Intake Total 170 Output Total 50 Balance 120 - Medications Medications: Current Medications Albuterol/Ipratropium (Duoneb 3 Mg/0.5 Mg (3 Ml) Ud) 3 ml INH RQ6 PRN PRN Reason: Shortness of Breath Amlodipine Besylate (Norvasc) 5 mg PO DAILY [facility] Last Admin: 11/25/16 11:30 Dose: 5 mg Aspirin (Aspirin Chewable) 81 mg PO DAILY [facility] Last Admin: 11/25/16 11:23 Dose: 81 mg Carvedilol (Coreg) 12.5 mg PO BID [facility] Last Admin: 11/25/16 11:29 Dose: 12.5 mg Epoetin Lobo (Procrit) 6,000 unit IV TTS [facility] Last Admin: 11/25/16 11:26 Dose: 6,000 unit Heparin Sodium (Porcine) (Heparin) 5,000 units SC Q8 [facility] Last Admin: 11/25/16 15:17 Dose: 5,000 units Hydralazine HCl (Apresoline) 25 mg PO TID [facility] Last Admin: 11/25/16 15:17 Dose: 25 mg Heparin Sodium/Sodium Chloride (Heparin 74651 Units/250ml 1/2 Normal Saline) 250 mls @ 8.709 mls/hr IV .Q24H PRN; Protocol; 12 UNITS/KG/HR PRN Reason: PROTOCOL Diltiazem HCl 125 mg/ Dextrose 125 mls @ 5 mls/hr IV .Q24H TYRONE; 5 MG/HR PRN Reason: Protocol Last Admin: 11/23/16 19:40 Dose: Not Given Insulin Human Regular (Novolin R) 0 unit SC ACHS TYRONE PRN Reason: Protocol Last Admin: 11/25/16 15:07 Dose: Not Given Isosorbide Mononitrate (Imdur) 60 mg PO 0900 [facility] Last Admin: 11/25/16 11:24 Dose: 60 mg Levothyroxine Sodium (Synthroid) 100 mcg PO 0630 [facility] Last Admin: 11/25/16 06:54 Dose: 100 mcg Lisinopril (Zestril) 20 mg PO DAILY [facility] Last Admin: 11/25/16 11:28 Dose: 20 mg Lorazepam (Ativan) 2 mg IVP ONCE PRN PRN Reason: Sedation Last Admin: 11/24/16 15:39 Dose: 2 mg Montelukast Sodium (Singulair) 10 mg PO DAILY [facility] Last Admin: 11/25/16 11:27 Dose: 10 mg Morphine Sulfate (Morphine) 2 mg IVP Q4 PRN PRN Reason: Pain, severe (8-10) Last Admin: 11/25/16 14:26 Dose: 2 mg Pantoprazole Sodium (Protonix Ec Tab) 40 mg PO DAILY [facility] Last Admin: 11/25/16 11:27 Dose: 40 mg Sevelamer Carbonate (Renvela) 2,400 mg PO TID [facility] Last Admin: 11/25/16 14:28 Dose: 2,400 mg Tramadol HCl (Ultram) 25 mg PO Q12 PRN PRN Reason: Pain, moderate (4-7) - Labs Labs: 11/25/16 06:25 11/25/16 06:25 PT 10.3 SECONDS (9.7-12.2) 11/22/16 19:40 INR 0.9 11/22/16 19:40 APTT 31 SECONDS (21-34) 11/22/16 19:40 - Respiratory Exam Additional comments: Lungs clear - Cardiovascular Exam Cardiovascular Exam: REGULAR RHYTHM Additional comments: Sinus rythm - Extremities Exam Additional comments: No edema Assessment and Plan - Assessment and Plan (Free Text) Assessment: ESRD HTN PSVT Plan: Pt will continue her dialysis schedule of MWF BP controlled
[2016-11-25 17:11] VITALS: BP 158/73
== END 2016-11-25 20:31 | DRG 544 ==
LOC: C.ER 17:15 → C.9OBSV 21:25 → C.9E 11-23 05:27 → C.9I 11-23 05:29 → OBSVTOIN 11-24 09:42
PROVIDERS: ADMIT Internal Medicine Nephrology; ATTEND Internal Medicine Nephrology
DX: I47.1 Supraventricular tachycardia (principal); I50.32 Chronic diastolic (congestive) heart failure; I13.2 Hypertensive heart and chronic kidney disease with heart failure and with stage 5 chronic kidney disease, or end stage renal disease; N18.6 End stage renal disease; E11.21 Type 2 diabetes mellitus with diabetic nephropathy; Z99.2 Dependence on renal dialysis; I34.0 Nonrheumatic mitral (valve) insufficiency; Z79.4 Long term (current) use of insulin; I69.351 Hemiplegia and hemiparesis following cerebral infarction affecting right dominant side; E78.5 Hyperlipidemia, unspecified; E03.9 Hypothyroidism, unspecified; K29.70 Gastritis, unspecified, without bleeding; M25.062 Hemarthrosis, left knee

== ENCOUNTER 2017-02-22 15:44 | Emergency (ER) | payer OTHER ==
[2017-02-22 15:45] VITALS: BMI 28.0
--- NOTE | 2017-02-22 18:30 | C.PDOC ---
History Of Present Illness 61 year old female presents to the ED with complaints of an itchy rash to the body for three days that began on both arms and spread. Patient states she has been taking Benadryl with no relief and a history of end stage renal disease. She denies any SOB or difficulty swallowing. Time Seen by Provider: 02/22/17 17:51 Chief Complaint (Nursing): Abnormal Skin Integrity History Per: Patient History/Exam Limitations: no limitations Onset/Duration Of Symptoms: Days (3) Current Symptoms Are (Timing): Still Present Quality Of Symptoms: Itching Recent travel outside of the [place]: No Past Medical History Reviewed: Historical Data, Nursing Documentation, Vital Signs Vital Signs: Last Vital Signs Temp 97.9 F 02/22/17 18:45 Pulse 60 02/22/17 18:45 Resp 15 02/22/17 18:45 BP 110/72 02/22/17 18:45 Pulse Ox 99 02/22/17 18:45 - Medical History PMH: Anemia, Arthritis (L KNEE; R SH), Asthma, Cardia Arrhythmia, Depression, Diabetes, Gastritis, HTN, Hypercholesterolemia, Hypothyroidism, End Stage Renal Disease, Chronic Kidney Disease, Sleep Apnea Surgical History: Cholecystectomy - [facility] Procedures DRAINAGE OF VULVA, OPEN APPROACH (11/05/15) EXCIS DEBRIDE OF WOUND, INFECT, OR BURN (11/09/14) HEMODIALYSIS (11/09/14) INCIS PERIANAL ABSCESS (11/09/14) PERFORMANCE OF URINARY FILTRATION, MULTIPLE (05/16/16) PERFORMANCE OF URINARY FILTRATION, SINGLE (11/18/16) Family History: States: Unknown Family Hx, Diabetes - Social History Hx Tobacco Use: No Hx Alcohol Use: No Hx Substance Use: No - Immunization History Hx Tetanus Toxoid Vaccination: Yes Hx Influenza Vaccination: Yes (2016) Hx Pneumococcal Vaccination: Yes (2016) Review Of Systems Constitutional: Negative for: Fever, Chills, Sweats Cardiovascular: Negative for: Chest Pain, Palpitations Respiratory: Negative for: Cough, Shortness of Breath Gastrointestinal: Negative for: Nausea, Vomiting, Abdominal Pain, Diarrhea Skin: Positive for: Rash Physical Exam - Physical Exam Appears: Non-toxic, No Acute Distress Skin: Warm, Dry, Rash (erythematous maculopapular rash that does not have facial involvement ) Head: Atraumatic Eye(s): bilateral: Normal Inspection Ear(s): Bilateral: Normal Oral Mucosa: Moist Tongue: Normal Appearing, No Swelling, No Bite, No Laceration Lips: Normal Appearing, No Swelling, No Contusion, No Abrasion, No Laceration, No Lesions Throat: Normal, No Erythema, No Exudate Neck: Supple Chest: Symmetrical, No Deformity Cardiovascular: Rhythm Regular Respiratory: No Rales, No Rhonchi, No Stridor, No Wheezing Gastrointestinal/Abdominal: Soft, No Tenderness, No Distention, No Guarding, No Rebound Extremity: Normal ROM, No Tenderness Neurological/Psych: Oriented x3 ED Course And Treatment O2 Sat by Pulse Oximetry: 98 (room air ) Medical Decision Making Medical Decision Making: Patient was treated with Benadryl, Pepcid and prednisone Upon reevaluation,patient is resting comfortably, tolerating PO, has no shortness of breath, has no intra-oral swelling, no stridor. She reports itching has improved. Rash remains unchanged. Patient was advised to avoid potential allergens, and to follow up with physician in 1-2 days. Disposition Counseled Patient/Family Regarding: Diagnosis, Need For Followup, Rx Given - Disposition Referrals: Ray Gill MD [Medical Doctor] - Disposition: HOME/ ROUTINE Disposition Time: 18:45 Condition: STABLE Additional Instructions: Por favor, siga con arthur mdico para pedro evaluacin ms Time Benadryl 25-50mg cada 4-6 horas para picazn y erupcin cutnea Time Prednisone diariamente Puede aplicar crema de cortisona dos veces al da Prescriptions: DiphenhydrAMINE [Benadryl] 25 mg PO Q4H PRN #30 cap PRN Reason: Itching / Pruritus Prednisone 50 mg PO DAILY #5 tablet Instructions: Acute Rash (DC) Print Language: THAI - POA Present On Arrival: None - Clinical Impression Clinical Impression: Contact dermatitis - Scribe Statement The provider has reviewed the documentation as recorded by the Scribe Corinne High All medical record entries made by the Scribe were at my direction and personally dictated by me. I have reviewed the chart and agree that the record accurately reflects my personal performance of the history, physical exam, medical decision making, and the department course for this patient. I have also personally directed, reviewed, and agree with the discharge instructions and disposition.
[2017-02-22 18:51] VITALS: BP 110/72; PULSE 60; RESP 15; TEMP 97.9
[2017-02-24 11:46] VITALS: O2SAT 98
== END 2017-02-22 18:50 | disposition home or self-care (01) ==
LOC: C.ER 15:44
DX: L25.9 Unspecified contact dermatitis, unspecified cause (principal)

== ENCOUNTER 2017-10-05 13:23 | Inpatient (IN) | payer OTHER ==
[2017-10-05 13:38] VITALS: BMI 32.9
--- NOTE | 2017-10-05 14:23 | C.PDOC ---
History Of Present Illness Manda Sanchez is a 62 year old female, with a past medical history of dialysis on Tuesday, Tuesday and Tuesday, who presents to the emergency department complaining of progressively worst swelling to legs, arms, and shoulders associated with shortness of breath onset for x1 month. Patient reports she currently has so much discomfort and total body pains, she couldn't move today and did not go to dialysis. Patient has not told her doctor regarding the complaints. She is eating and drinking normally. Patient's weight is measured on dialysis but they didn't report any weight change. No further medical complaints. PMD: None provided. Time Seen by Provider: 10/05/17 14:01 Chief Complaint (Nursing): Lower Extremity Problem/Injury History Per: Patient History/Exam Limitations: no limitations Onset/Duration Of Symptoms: Days (x1 month) Current Symptoms Are (Timing): Still Present Past Medical History Reviewed: Historical Data, Nursing Documentation, Vital Signs Vital Signs: Last Vital Signs Temp 98.0 F 10/05/17 13:39 Pulse 57 L 10/05/17 15:30 Resp 16 10/05/17 15:30 BP 186/107 H 10/05/17 15:30 Pulse Ox 99 10/05/17 17:17 - Medical History PMH: Anemia, Arthritis (L KNEE; R SH), Asthma, Cardia Arrhythmia, Depression, Diabetes, Gastritis, HTN, Hypercholesterolemia, Hypothyroidism, End Stage Renal Disease, Chronic Kidney Disease, Sleep Apnea Surgical History: [facility] - [facility] Procedures DRAINAGE OF VULVA, OPEN APPROACH (11/05/15) EXCIS DEBRIDE OF WOUND, INFECT, OR BURN (11/09/14) HEMODIALYSIS (11/09/14) INCIS PERIANAL ABSCESS (11/09/14) PERFORMANCE OF URINARY FILTRATION, MULTIPLE (05/16/16) PERFORMANCE OF URINARY FILTRATION, SINGLE (11/18/16) Family History: States: Unknown Family Hx, Diabetes - Social History Hx Tobacco Use: No Hx Alcohol Use: No Hx Substance Use: No - Immunization History Hx Tetanus Toxoid Vaccination: Yes Hx Influenza Vaccination: No (2015) Hx Pneumococcal Vaccination: Yes (2015) Review Of Systems Constitutional: Positive for: Other (body pains) Skin: Positive for: Other (swelling to legs, arms and shoulder) Physical Exam - Physical Exam Appears: No Acute Distress (complaining of discomfort with movement in bed) Skin: Warm, Dry Head: Atraumatic, Normacephalic Eye(s): bilateral: Normal Inspection, PERRL, EOMI Ear(s): Bilateral: Normal Nose: Normal Oral Mucosa: Moist Throat: Normal Neck: Normal ROM, Supple Cardiovascular: Rhythm Regular, No Murmur Respiratory: Normal Breath Sounds, No Wheezing Gastrointestinal/Abdominal: Normal Exam (obese), Soft, No Tenderness, No Guarding, No Rebound Back: Normal Inspection, No CVA Tenderness, No Vertebral Tenderness Extremity: Normal ROM, No Pedal Edema, No Deformity, No Swelling (no obvious peripheral or pitting edema. ) Neurological/Psych: Oriented x3 (alert) ED Course And Treatment - Laboratory Results Result Diagrams: 10/05/17 16:33 10/05/17 16:33 Lab Interpretation: Abnormal (K+ 5.6, BUN 55, Cr 7.6, Na 130, HC03 27, [id number]) O2 Sat by Pulse Oximetry: 99 (RA) Pulse Ox Interpretation: Normal Reevaluation Time: 17:25 Reassessment Condition: Unchanged - Physician Consult Information Time Consulting Physician Contacted: 17:17 Physician Contacted: Umberto Pina Outcome Of Conversation: Dr García to write dialysis orders. Dr Gamboa to admit to his service. Medical Decision Making Medical Decision Making: Initial Impression: Initial Plan: --reevaluation Disposition - Disposition Disposition: HOSPITALIZED Disposition Time: 17:26 Condition: STABLE - POA Present On Arrival: None - Clinical Impression Clinical Impression: ESRD on hemodialysis, Hyperkalemia - Scribe Statement Alex Shelton Provider Attestation: All medical record entries made by the Wandaibe were at my direction and personally dictated by me. I have reviewed the chart and agree that the record accurately reflects my personal performance of the history, physical exam, medical decision making, and the department course for this patient. I have also personally directed, reviewed, and agree with the discharge instructions and disposition.
[2017-10-05 16:40] LABS: BASO # 0.1 K/uL (0.0-0.2); BASO % 1.4 % (0.0-2.0); EOS # 0.3 K/uL (0.0-0.7); EOS % 2.9 % (0.0-4.0); HEMOGLOBIN 11.7 g/dL (11.0-16.0); LYMPH # 2.9 K/uL (1.0-4.3); LYMPH % 28.2 % (20.0-40.0); MEAN CELL VOLUME 88.5 fL (81.0-99.0); MEAN CORPUSCULAR HGB CONC 32.7 g/dL (33.0-37.0); MEAN PLATELET VOLUME 9.8 fL (7.2-11.7); MONO # 0.9 K/uL (0.0-0.8); MONO % 8.6 % (0.0-10.0); NEUT % 58.9 % (50.0-75.0); NRBC % 0.1 % (0.0-2.0); RBC 4.04 Mil/uL (3.80-5.20); RED CELL DISTRIBUTION WIDTH 16.8 % (11.5-14.5); WHITE BLOOD COUNT 10.1 K/uL (4.8-10.8)
[2017-10-05 16:58] LABS: ALB/GLOB RATIO 1.1 (1.0-2.1); ALBUMIN 3.8 g/dL (3.5-5.0); CALCIUM 9.2 mg/dl (8.6-10.4)
[2017-10-05 17:04] LABS: TROPONIN I 0.025 ng/mL (0.00-0.120)
[2017-10-05] MEDS ORDERED: Albuterol-Ipratrop 3 mg / 0.5 (3 ml) UD INH PRN (17:28)
--- NOTE | 2017-10-05 17:34 | RAD ---
HISTORY: sob COMPARISON: Chest x-ray performed 11/22/16 TECHNIQUE: Chest, one view. FINDINGS: Examination limited by habitus. LUNGS: No focal consolidation. Please note that chest x-ray has limited sensitivity for the detection of pulmonary masses. PLEURA: No significant pleural effusion identified. No definite pneumothorax . CARDIOVASCULAR: Cardiomegaly. Faint atherosclerotic calcification of the aorta. OSSEOUS STRUCTURES: Osseous demineralization. Degenerative changes. VISUALIZED UPPER ABDOMEN: Unremarkable. OTHER FINDINGS: None. IMPRESSION: Cardiomegaly.
[2017-10-05] MEDS ORDERED: Tmp-Smz 800 mg-160 mg DS Tab ONE (18:58)
[2017-10-05] MEDS ORDERED: Lidocaine 1% Inj (20ml) ONE (18:58)
[2017-10-05] MEDS: Tramadol 25 mg PO PRN (22:44)
--- NOTE | 2017-10-05 23:10 | CP.PCM.HP ---
History of Present Illness - History of Present Illness History of Present Illness: CC:Knee pain , difficulty ambulation, shortness of breath, b/l LE swelling HPI: Manda Sanchez is a 62 year oldhispanic female, with a past medical history of HTN, Hyperlipidemia, DM since 20 years, on insulin CKD since 8 years on dialysis 3 X week, who presents to the emergency department complaining of progressively worst swelling to legs, arms, and shoulders associated with shortness of breath onset for x1 month. Patient reports she currently has so much discomfort and total body pains, she couldn't move today and did not go to dialysis. Patient has not told her doctor regarding the complaints. She is eating and drinking normally. Patient's weight is measured on dialysis but they didn't report any weight change. No further medical complaints. Present on Admission - Present on Admission Any Indicators Present on Admission: Yes Review of Systems - Review of Systems Systems not reviewed;Unavailable: Acuity of Condition - Constitutional Constitutional: Fatigue, Lethargy - Cardiovascular Cardiovascular: Dyspnea, Pedal Edema - Respiratory Respiratory: Dyspnea - Gastrointestinal Gastrointestinal: absent: As Per HPI, Abdominal Pain, Belching, Bloating, Change in Bowel Habits, Change in Stool Character, Coffee Ground Emesis, Constipation, Cramping, Diarrhea, Dyspepsia, Dysphagia, Early Satiety, Excessive Flatus, Fecal Incontinence, Heartburn, Hematemesis, Hematochezia, Loose Stools, Melena, Nausea, Odynophagia, Temesmus, Vomiting, Other - Musculoskeletal Musculoskeletal: Joint Swelling, Muscle Cramps, Muscle Weakness, Myalgias, Radiating Pain into Limb - Integumentary Integumentary: absent: As Per HPI, Acne, Alopecia, Bleeding Lesions, Change in Hair, Change in Nails, Change in Pigmentation, Changing Lesions, Dry Skin, Erythema, Furuncle, Hirsutism, Lesions, New Lesions, Non-Healing Lesions, Photosensitivity, Pruritus, Rash, Skin Pain, Skin Ulcer, Sores, Striae, Swelling , Unusual Bruising, Wounds, Jaundice, Other - Neurological Neurological: Numbness. absent: As Per HPI, Abnormal Gait, Abnormal Hearing, Abnormal Movements, Abnormal Speech, Behavioral Changes, Burning Sensations, Confusion, Convulsions, Disequilibrium, Dizziness, Focal Weakness, Frequent Falls, Headaches, Lack of Coordination, Loss of Vision, Memory Loss, Paresthesias, Radicular Pain, Restless Legs, Sensory Deficit, Syncope, Tingling , Tremor, Vertigo, Weakness, Other Visual Disturbances, Other - Psychiatric Psychiatric: absent: As Per HPI, Abnormal Sleep Pattern, Anhedonia, Anxiety, Auditory Hallucinations, Behavioral Changes, Change in Appetite, Change in Libido, Confusion, Depression, Difficulty Concentrating, Hallucinations, Homicidal Ideation, Hopelessness, Irritability, Memory Loss, Mood Swings, Panic Attacks, Paranoia, Suicidal Ideation, Visual Hallucinations, Tactile Hallucinations, Other - Endocrine Endocrine: absent: As Per HPI, Change in Body Appearance, Change in Libido, Cold Intolorance, Deepening of Voice, Excessive Sweating, Fatigue, Flushing, Heat Intolorance, Increase in Ring/Shoe/Hat Size, Palpitations, Polydipsia, Polyphagia, Polyuria, Other - Hematologic/Lymphatic Hematologic: absent: As Per HPI, Easy Bleeding, Easy Bruising, Lymphadenopathy, Other Past Patient History - Infectious Disease Hx of Infectious Diseases: None - Tetanus Immunizations Tetanus Immunization: Unknown - Past Medical History & Family History Past Medical History?: Yes - Past Social History Smoking Status: Never Smoked - CARDIAC Hx Cardia Arrhythmia: Yes Hx Hypercholesterolemia: Yes Hx Hypertension: Yes - PULMONARY Hx Asthma: Yes Hx Sleep Apnea: Yes - NEUROLOGICAL Hx Neurological Disorder: Yes HX Cerebrovascular Accident: Yes (CVA c R hemiparesis 2010) - HEENT Hx HEENT Problems: Yes Other/Comment: uses eyeglasses - RENAL Hx Chronic Kidney Disease: Yes - ENDOCRINE/METABOLIC Hx Hypothyroidism: Yes - HEMATOLOGICAL/ONCOLOGICAL Hx Anemia: Yes - INTEGUMENTARY Hx Dermatological Problems: Yes (SEE COMMENT) Other/Comment: LEFT UPPER ARM AV SHUNT - MUSCULOSKELETAL/RHEUMATOLOGICAL Hx Arthritis: Yes (L KNEE; R SH) - GASTROINTESTINAL Hx Gastritis: Yes - GENITOURINARY/GYNECOLOGICAL Hx Genitourinary Disorders: Yes (She has [facility] BSO) Other/Comment: ESRD - PSYCHIATRIC Hx Depression: Yes Hx Substance Use: No - SURGICAL HISTORY Hx Cholecystectomy: Yes - ANESTHESIA Hx Anesthesia: Yes Hx Anesthesia Reactions: No Hx Malignant Hyperthermia: No Meds Allergies/Adverse Reactions: Allergies Allergy/AdvReac Type Severity Reaction Status Date / Time No Known Allergies Allergy Verified 10/05/17 13:38 Physical Exam - Constitutional Appears: No Acute Distress - Head Exam Head Exam: ATRAUMATIC, NORMAL INSPECTION, NORMOCEPHALIC - Eye Exam Eye Exam: EOMI, Normal appearance, PERRL Pupil Exam: NORMAL ACCOMODATION, PERRL - Respiratory Exam Respiratory Exam: Decreased Breath Sounds, Rales, Rhonchi - Cardiovascular Exam Cardiovascular Exam: REGULAR RHYTHM - GI/Abdominal Exam GI & Abdominal Exam: Normal Bowel Sounds, Soft. absent: Tenderness - Extremities Exam Extremities exam: Positive for: pedal edema - Back Exam Back exam: NORMAL INSPECTION Results - Vital Signs Recent Vital Signs: Last Vital Signs Temp 97.7 F 10/05/17 22:15 Pulse 63 10/05/17 22:15 Resp 20 10/05/17 22:15 BP 93/55 L 10/05/17 22:15 Pulse Ox 98 10/05/17 22:15 - Labs Result Diagrams: 10/05/17 16:33 10/05/17 16:33 Labs: Laboratory Results - last 24 hr 10/05/17 10/05/17 16:33 16:33 WBC 10.1 RBC 4.04 Hgb 11.7 D Hct 35.8 MCV 88.5 MCH 29.0 MCHC 32.7 L RDW 16.8 H Plt Count 244 MPV 9.8 Neut % (Auto) 58.9 Lymph % (Auto) 28.2 [place] % (Auto) 8.6 Eos % (Auto) 2.9 Baso % (Auto) 1.4 Neut # (Auto) 6.0 Lymph # (Auto) 2.9 [place] # (Auto) 0.9 H Eos # (Auto) 0.3 Baso # (Auto) 0.1 Sodium 130 L Potassium 5.6 H Chloride 93 L Carbon Dioxide 27 Anion Gap 16 BUN 55 H Creatinine 7.6 H* Est GFR ( Amer) 7 Est GFR (Non-Af Amer) 5 Random Glucose 192 H Calcium 9.2 Total Bilirubin 0.5 AST 22 ALT 11 Alkaline Phosphatase 158 H Total Creatine Kinase 37 Troponin I 0.0250 NT-Pro-B Natriuret Pep 86778 H Total Protein 7.2 Albumin 3.8 Globulin 3.4 Albumin/Globulin Ratio 1.1 Assessment & Plan (1) Dyspnea Status: Acute (2) Difficulty walking Status: Acute (3) ESRD on hemodialysis Status: Acute (4) Arthritis Status: Acute (5) Diabetes mellitus Status: Chronic (6) Hyperlipidemia Status: Chronic (7) Hypertension Status: Chronic
[2017-10-06] MEDS: Levothyroxine 100 MCG TAB PO SCH (05:46)
[2017-10-06] MEDS: Tramadol 25 mg PO PRN (11:49)
[2017-10-06] MEDS: Pantoprazole 40 mg EC Tab PO SCH (11:50)
--- NOTE | 2017-10-06 14:50 | CP.PCM.CON ---
History of Present Illness - History of Present Illness History of Present Illness: renal note pt seen and examined this AM labs and vitals reviewed had HD done yesterday plan for next HD tomorrow Past Patient History - Infectious Disease Hx of Infectious Diseases: None - Tetanus Immunizations Tetanus Immunization: Unknown - Past Medical History & Family History Past Medical History?: Yes - Past Social History Smoking Status: Never Smoked - CARDIAC Hx Cardia Arrhythmia: Yes Hx Hypercholesterolemia: Yes Hx Hypertension: Yes - PULMONARY Hx Asthma: Yes Hx Sleep Apnea: Yes - NEUROLOGICAL Hx Neurological Disorder: Yes HX Cerebrovascular Accident: Yes (CVA c R hemiparesis 2010) - HEENT Hx HEENT Problems: Yes Other/Comment: uses eyeglasses - RENAL Hx Chronic Kidney Disease: Yes - ENDOCRINE/METABOLIC Hx Hypothyroidism: Yes - HEMATOLOGICAL/ONCOLOGICAL Hx Anemia: Yes - INTEGUMENTARY Hx Dermatological Problems: Yes (SEE COMMENT) Other/Comment: LEFT UPPER ARM AV SHUNT - MUSCULOSKELETAL/RHEUMATOLOGICAL Hx Arthritis: Yes (L KNEE; R SH) - GASTROINTESTINAL Hx Gastritis: Yes - GENITOURINARY/GYNECOLOGICAL Hx Genitourinary Disorders: Yes (She has [facility] BSO) Other/Comment: ESRD - PSYCHIATRIC Hx Depression: Yes Hx Substance Use: No - SURGICAL HISTORY Hx Cholecystectomy: Yes - ANESTHESIA Hx Anesthesia: Yes Hx Anesthesia Reactions: No Hx Malignant Hyperthermia: No Meds Allergies/Adverse Reactions: Allergies Allergy/AdvReac Type Severity Reaction Status Date / Time No Known Allergies Allergy Verified 10/05/17 13:38 - Medications Medications: Current Medications Acetaminophen (Tylenol 325mg Tab) 650 mg PO Q6 PRN PRN Reason: Pain, moderate (4-7) Albuterol/Ipratropium (Duoneb 3 Mg/0.5 Mg (3 Ml) Ud) 3 ml INH RQ6 PRN PRN Reason: Shortness of Breath Aspirin (Aspirin Chewable) 81 mg PO DAILY [facility] Last Admin: 10/06/17 11:50 Dose: 81 mg Carvedilol (Coreg) 12.5 mg PO BID [facility] Last Admin: 10/06/17 11:50 Dose: 12.5 mg Docusate Sodium (Colace) 100 mg PO BID [facility] Epoetin Lobo (Procrit) 3,000 unit IV MWF [facility] Heparin Sodium (Porcine) (Heparin) 5,000 units SC Q8 [facility] Last Admin: 10/06/17 14:03 Dose: 5,000 units Hydralazine HCl (Apresoline) 50 mg PO TID [facility] Last Admin: 10/06/17 14:04 Dose: Not Given Isosorbide Mononitrate (Imdur Er) 60 mg PO 0900 [facility] Last Admin: 10/06/17 11:50 Dose: 60 mg Levothyroxine Sodium (Synthroid) 100 mcg PO DAILY@0630 [facility] Last Admin: 10/06/17 05:46 Dose: 100 mcg Lisinopril (Zestril) 20 mg PO DAILY [facility] Last Admin: 10/06/17 11:59 Dose: 20 mg Magnesium Hydroxide (Milk Of Magnesia) 30 ml PO HS [facility] Montelukast Sodium (Singulair) 10 mg PO DAILY [facility] Last Admin: 10/06/17 11:51 Dose: 10 mg Pantoprazole Sodium (Protonix Ec Tab) 40 mg PO DAILY [facility] Last Admin: 10/06/17 11:50 Dose: 40 mg Sevelamer Carbonate (Renvela) 2,400 mg PO TID [facility] Last Admin: 10/06/17 14:04 Dose: Not Given Tramadol HCl (Ultram) 25 mg PO Q12 [facility] Results - Vital Signs Recent Vital Signs: Last Vital Signs Temp 98.5 F 10/06/17 08:00 Pulse 65 10/06/17 08:00 Resp 20 10/06/17 08:00 BP 148/82 10/06/17 11:50 Pulse Ox 98 10/06/17 08:00 - Labs Result Diagrams: 10/05/17 16:33 10/05/17 16:33 Labs: Laboratory Results - last 24 hr 10/05/17 10/05/17 10/06/17 16:33 16:33 07:11 WBC 10.1 RBC 4.04 Hgb 11.7 D Hct 35.8 MCV 88.5 MCH 29.0 MCHC 32.7 L RDW 16.8 H Plt Count 244 MPV 9.8 Neut % (Auto) 58.9 Lymph % (Auto) 28.2 [place] % (Auto) 8.6 Eos % (Auto) 2.9 Baso % (Auto) 1.4 Neut # (Auto) 6.0 Lymph # (Auto) 2.9 [place] # (Auto) 0.9 H Eos # (Auto) 0.3 Baso # (Auto) 0.1 Sodium 130 L Potassium 5.6 H Chloride 93 L Carbon Dioxide 27 Anion Gap 16 BUN 55 H Creatinine 7.6 H* Est GFR ( Amer) 7 Est GFR (Non-Af Amer) 5 POC Glucose (mg/dL) 130 H Random Glucose 192 H Calcium 9.2 Total Bilirubin 0.5 AST 22 ALT 11 Alkaline Phosphatase 158 H Total Creatine Kinase 37 Troponin I 0.0250 NT-Pro-B Natriuret Pep 58767 H Total Protein 7.2 Albumin 3.8 Globulin 3.4 Albumin/Globulin Ratio 1.1 10/06/17 11:36 WBC RBC Hgb Hct MCV MCH MCHC RDW Plt Count MPV Neut % (Auto) Lymph % (Auto) [place] % (Auto) Eos % (Auto) Baso % (Auto) Neut # (Auto) Lymph # (Auto) [place] # (Auto) Eos # (Auto) Baso # (Auto) Sodium Potassium Chloride Carbon Dioxide Anion Gap BUN Creatinine Est GFR ( Amer) Est GFR (Non-Af Amer) POC Glucose (mg/dL) 162 H Random Glucose Calcium Total Bilirubin AST ALT Alkaline Phosphatase Total Creatine Kinase Troponin I NT-Pro-B Natriuret Pep Total Protein Albumin Globulin Albumin/Globulin Ratio
--- NOTE | 2017-10-06 17:05 | RAD ---
PROCEDURE: Bilateral Knee Radiographs. HISTORY: jhony knee pain and swelling COMPARISON: None. FINDINGS: BONES: Right Knee: No fracture Left Knee: No fracture JOINTS: Right Knee: Advanced osteoarthritis. Left knee: Advanced osteoarthritis. SOFT TISSUES: Right Knee: Normal. Left Knee: Normal. JOINT EFFUSION: Right Knee: Present Left Knee: Present OTHER FINDINGS: Bilateral arterial calcifications IMPRESSION: Bilateral osteoarthrosis tricompartmental. No gross fractures appreciated.
[2017-10-06] MEDS: Tramadol 25 mg PO SCH (22:28)
[2017-10-06] MEDS: (Novolin R) Insulin Human Regular 100 units/ml vial SC SCH (22:30)
[2017-10-06] MEDS: (Novolog) Insulin Aspart, Recombinant 100 u/ml 10 ml vial SC SCH (22:30)
[2017-10-06] MEDS: Magnesium Hydroxide Susp 30 ml UD PO SCH (22:31)
--- NOTE | 2017-10-06 22:38 | CP.PCM.PN ---
Subjective - Date & Time of Evaluation Date of Evaluation: 10/06/17 Time of Evaluation: 18:40 - Subjective Subjective: Pt seen and evaluated is s/p HD, pt is on medical management Objective - Vital Signs/Intake and Output Vital Signs (last 24 hours): Temp Pulse Resp BP Pulse Ox 98.2 F 62 20 118/83 97 10/06/17 16:50 10/06/17 16:50 10/06/17 16:50 10/06/17 18:51 10/06/17 16:50 Intake and Output: 10/06/17 10/07/17 18:59 06:59 Intake Total 500 Balance 500 - Medications Medications: Current Medications Acetaminophen (Tylenol 325mg Tab) 650 mg PO Q6 PRN PRN Reason: Pain, moderate (4-7) Albuterol/Ipratropium (Duoneb 3 Mg/0.5 Mg (3 Ml) Ud) 3 ml INH RQ6 PRN PRN Reason: Shortness of Breath Aspirin (Aspirin Chewable) 81 mg PO DAILY [facility] Last Admin: 10/06/17 11:50 Dose: 81 mg Carvedilol (Coreg) 12.5 mg PO BID [facility] Last Admin: 10/06/17 18:51 Dose: 12.5 mg Docusate Sodium (Colace) 100 mg PO BID [facility] Last Admin: 10/06/17 18:52 Dose: 100 mg Epoetin Lobo (Procrit) 3,000 unit IV MWF [facility] Heparin Sodium (Porcine) (Heparin) 5,000 units SC Q8 [facility] Last Admin: 10/06/17 22:31 Dose: 5,000 units Hydralazine HCl (Apresoline) 50 mg PO TID [facility] Last Admin: 10/06/17 18:52 Dose: 50 mg Insulin Aspart (Novolog) 5 unit SC QAM [facility] Insulin Aspart (Novolog) 5 unit SC HS [facility] Last Admin: 10/06/17 22:30 Dose: 5 unit Insulin Human Regular (Novolin R) 0 unit SC ACHS [facility] PRN Reason: Protocol Last Admin: 10/06/17 22:30 Dose: Not Given Isosorbide Mononitrate (Imdur Er) 60 mg PO 0900 [facility] Last Admin: 10/06/17 11:50 Dose: 60 mg Levothyroxine Sodium (Synthroid) 100 mcg PO DAILY@0630 [facility] Last Admin: 10/06/17 05:46 Dose: 100 mcg Lisinopril (Zestril) 20 mg PO DAILY [facility] Last Admin: 10/06/17 11:59 Dose: 20 mg Magnesium Hydroxide (Milk Of Magnesia) 30 ml PO HS [facility] Last Admin: 10/06/17 22:31 Dose: Not Given Montelukast Sodium (Singulair) 10 mg PO DAILY [facility] Last Admin: 10/06/17 11:51 Dose: 10 mg Pantoprazole Sodium (Protonix Ec Tab) 40 mg PO DAILY [facility] Last Admin: 10/06/17 11:50 Dose: 40 mg Sevelamer Carbonate (Renvela) 2,400 mg PO TID [facility] Last Admin: 10/06/17 18:51 Dose: 2,400 mg Tramadol HCl (Ultram) 25 mg PO Q12 [facility] Last Admin: 10/06/17 22:28 Dose: 25 mg - Labs Labs: 10/05/17 16:33 10/05/17 16:33 - Constitutional Appears: No Acute Distress - Eye Exam Eye Exam: EOMI, Normal appearance, PERRL Pupil Exam: NORMAL ACCOMODATION, PERRL - Respiratory Exam Respiratory Exam: Decreased Breath Sounds, Rales - Cardiovascular Exam Cardiovascular Exam: REGULAR RHYTHM, +S1, +S2. absent: Murmur - GI/Abdominal Exam GI & Abdominal Exam: Soft, Normal Bowel Sounds. absent: Tenderness Assessment and Plan (1) Dyspnea Status: Acute (2) Difficulty walking Status: Acute (3) ESRD on hemodialysis Status: Acute (4) Arthritis Status: Acute (5) Diabetes mellitus Assessment & Plan: sliding scale insulin adjusted by me Status: Chronic (6) Hyperlipidemia Status: Chronic (7) Hypertension Status: Chronic
[2017-10-07] MEDS: Levothyroxine 100 MCG TAB PO SCH (06:26)
[2017-10-07] MEDS: (Novolin R) Insulin Human Regular 100 units/ml vial SC SCH ×4 (08:45→22:00)
[2017-10-07] MEDS: Pantoprazole 40 mg EC Tab PO SCH (09:05)
[2017-10-07] MEDS: Tramadol 25 mg PO SCH ×2 (09:05→21:56)
[2017-10-07] MEDS: (Novolog) Insulin Aspart, Recombinant 100 u/ml 10 ml vial SC SCH ×2 (09:07→21:59)
--- NOTE | 2017-10-07 11:01 | CP.PCM.PN ---
Subjective - Date & Time of Evaluation Date of Evaluation: 10/07/17 Time of Evaluation: 10:15 - Subjective Subjective: Dialysis note She was seen on hemodialysis. Vital signs stable Patient complaining of severe pain and the shoulders bilateral. Also complaining of pain in both knees more so on the right side I discussed dialysis with the dialysis nurse at the bedside Sodium bath 138 Potassium bath 2 mEq Bicarbonate bath 34 Ultrafiltration about 1500 mL Objective - Vital Signs/Intake and Output Vital Signs (last 24 hours): Temp Pulse Resp BP Pulse Ox 97.6 F 66 16 129/68 98 10/07/17 09:20 10/07/17 09:20 10/07/17 09:20 10/07/17 09:35 10/07/17 09:20 - Medications Medications: Current Medications Acetaminophen (Tylenol 325mg Tab) 650 mg PO Q6 PRN PRN Reason: Pain, moderate (4-7) Albuterol/Ipratropium (Duoneb 3 Mg/0.5 Mg (3 Ml) Ud) 3 ml INH RQ6 PRN PRN Reason: Shortness of Breath Aspirin (Aspirin Chewable) 81 mg PO DAILY [facility] Last Admin: 10/07/17 09:11 Dose: 81 mg Carvedilol (Coreg) 12.5 mg PO BID [facility] Last Admin: 10/07/17 09:08 Dose: Not Given Docusate Sodium (Colace) 100 mg PO BID [facility] Last Admin: 10/07/17 09:05 Dose: 100 mg Epoetin Lobo (Procrit) 3,000 unit IV MWF [facility] Heparin Sodium (Porcine) (Heparin) 5,000 units SC Q8 [facility] Last Admin: 10/07/17 06:27 Dose: 5,000 units Hydralazine HCl (Apresoline) 50 mg PO TID [facility] Last Admin: 10/06/17 18:52 Dose: 50 mg Ibuprofen (Motrin Tab) 600 mg PO STAT [facility] Stop: 10/07/17 10:56 Insulin Aspart (Novolog) 5 unit SC QAM [facility] Last Admin: 10/07/17 09:07 Dose: 5 unit Insulin Aspart (Novolog) 5 unit SC HS [facility] Last Admin: 10/06/17 22:30 Dose: 5 unit Insulin Human Regular (Novolin R) 0 unit SC ACHS [facility] PRN Reason: Protocol Last Admin: 10/07/17 08:45 Dose: 1 unit Isosorbide Mononitrate (Imdur Er) 60 mg PO 0900 [facility] Last Admin: 10/07/17 09:07 Dose: Not Given Levothyroxine Sodium (Synthroid) 100 mcg PO DAILY@0630 [facility] Last Admin: 10/07/17 06:26 Dose: 100 mcg Lisinopril (Zestril) 20 mg PO DAILY [facility] Last Admin: 10/07/17 09:07 Dose: Not Given Magnesium Hydroxide (Milk Of Magnesia) 30 ml PO HS [facility] Last Admin: 10/06/17 22:31 Dose: Not Given Montelukast Sodium (Singulair) 10 mg PO DAILY [facility] Last Admin: 10/07/17 09:06 Dose: 10 mg Pantoprazole Sodium (Protonix Ec Tab) 40 mg PO DAILY [facility] Last Admin: 10/07/17 09:05 Dose: 40 mg Sevelamer Carbonate (Renvela) 2,400 mg PO TID [facility] Last Admin: 10/07/17 09:06 Dose: 2,400 mg Tramadol HCl (Ultram) 25 mg PO Q12 [facility] Last Admin: 10/07/17 09:05 Dose: 25 mg - Labs Labs: 10/05/17 16:33 10/05/17 16:33 - Constitutional Appears: No Acute Distress - ENT Exam ENT Exam: Mucous Membranes Moist - Neck Exam Neck Exam: absent: Lymphadenopathy - Respiratory Exam Respiratory Exam: NORMAL BREATHING PATTERN. absent: Rales - Cardiovascular Exam Cardiovascular Exam: REGULAR RHYTHM. absent: Rubs - GI/Abdominal Exam GI & Abdominal Exam: Soft, Normal Bowel Sounds - Extremities Exam Extremities Exam: absent: Calf Tenderness, Pedal Edema - Back Exam Back Exam: absent: CVA tenderness (L), CVA tenderness (R) - Neurological Exam Neurological Exam: Alert - Psychiatric Exam Psychiatric exam: Normal Affect - Skin Skin Exam: absent: Cyanosis Assessment and Plan (1) ESRD on hemodialysis Assessment & Plan: Patient with end stage renal disease receiving dialysis now. Admitted for his diffuse pain in both shoulder and both knees I give stat Motrin 600 mg by mouth right now Hyperkalemia patient is receiving dialysis. Patient will need x-ray for both shoulder and both knees. Rule out bursitis versus arthritis or combination Status: Acute (2) Hyperkalemia Status: Acute
[2017-10-07] MEDS: Epoetin Alfa Dialysis 3000 UNIT/ML Inj IV SCH (12:32)
[2017-10-07] MEDS: Magnesium Hydroxide Susp 30 ml UD PO SCH (22:00)
--- NOTE | 2017-10-07 22:28 | CP.PCM.PN ---
Subjective - Date & Time of Evaluation Date of Evaluation: 10/07/17 Time of Evaluation: 17:00 - Subjective Subjective: Pt seen and examined, complaining of b/l knee pain, no fever, no swelling Objective - Vital Signs/Intake and Output Vital Signs (last 24 hours): Temp Pulse Resp BP Pulse Ox 98 F 62 20 132/67 99 10/07/17 18:13 10/07/17 18:13 10/07/17 18:13 10/07/17 18:13 10/07/17 18:13 Intake and Output: 10/07/17 10/08/17 18:59 06:59 Intake Total 500 Balance 500 - Medications Medications: Current Medications Acetaminophen (Tylenol 325mg Tab) 650 mg PO Q8 [facility] Albuterol/Ipratropium (Duoneb 3 Mg/0.5 Mg (3 Ml) Ud) 3 ml INH RQ6 PRN PRN Reason: Shortness of Breath Aspirin (Aspirin Chewable) 81 mg PO DAILY [facility] Last Admin: 10/07/17 09:11 Dose: 81 mg Carvedilol (Coreg) 12.5 mg PO BID [facility] Last Admin: 10/07/17 17:35 Dose: 12.5 mg Docusate Sodium (Colace) 100 mg PO BID [facility] Last Admin: 10/07/17 17:36 Dose: 100 mg Epoetin Lobo (Procrit) 3,000 unit IV MWF [facility] Last Admin: 10/07/17 12:32 Dose: 3,000 unit Epoetin Lobo (Procrit) 3,000 u IV MWF [facility] Heparin Sodium (Porcine) (Heparin) 5,000 units SC Q8 [facility] Last Admin: 10/07/17 21:58 Dose: 5,000 units Hydralazine HCl (Apresoline) 50 mg PO TID [facility] Last Admin: 10/07/17 17:36 Dose: 50 mg Insulin Aspart (Novolog) 5 unit SC QAM [facility] Last Admin: 10/07/17 09:07 Dose: 5 unit Insulin Aspart (Novolog) 5 unit SC HS [facility] Last Admin: 10/07/17 21:59 Dose: 5 unit Insulin Human Regular (Novolin R) 0 unit SC ACHS [facility] PRN Reason: Protocol Last Admin: 10/07/17 22:00 Dose: Not Given Isosorbide Mononitrate (Imdur Er) 60 mg PO 0900 [facility] Last Admin: 10/07/17 14:07 Dose: 60 mg Levothyroxine Sodium (Synthroid) 100 mcg PO DAILY@0630 [facility] Last Admin: 10/07/17 06:26 Dose: 100 mcg Lisinopril (Zestril) 20 mg PO DAILY [facility] Last Admin: 10/07/17 14:07 Dose: 20 mg Magnesium Hydroxide (Milk Of Magnesia) 30 ml PO HS [facility] Last Admin: 10/07/17 22:00 Dose: Not Given Montelukast Sodium (Singulair) 10 mg PO DAILY [facility] Last Admin: 10/07/17 09:06 Dose: 10 mg Pantoprazole Sodium (Protonix Ec Tab) 40 mg PO DAILY [facility] Last Admin: 10/07/17 09:05 Dose: 40 mg Sevelamer Carbonate (Renvela) 2,400 mg PO TID [facility] Last Admin: 10/07/17 17:36 Dose: 2,400 mg Tramadol HCl (Ultram) 25 mg PO Q12 [facility] Last Admin: 10/07/17 21:56 Dose: 25 mg - Labs Labs: 10/05/17 16:33 10/05/17 16:33 - Constitutional Appears: No Acute Distress - Head Exam Head Exam: ATRAUMATIC, NORMAL INSPECTION, NORMOCEPHALIC - Eye Exam Eye Exam: EOMI, Normal appearance, PERRL Pupil Exam: NORMAL ACCOMODATION, PERRL - Respiratory Exam Respiratory Exam: Clear to Ausculation Bilateral, NORMAL BREATHING PATTERN - Cardiovascular Exam Cardiovascular Exam: REGULAR RHYTHM, +S1, +S2. absent: Murmur - GI/Abdominal Exam GI & Abdominal Exam: Soft, Normal Bowel Sounds. absent: Tenderness - Rectal Exam Rectal Exam: Deferred Assessment and Plan (1) Dyspnea Status: Acute (2) Difficulty walking Status: Acute (3) ESRD on hemodialysis Status: Acute (4) Arthritis Assessment & Plan: rhematology Eval Status: Acute (5) Diabetes mellitus Status: Chronic (6) Hyperlipidemia Status: Chronic (7) Hypertension Status: Chronic
[2017-10-08] MEDS: Levothyroxine 100 MCG TAB PO SCH (06:24)
[2017-10-08 08:56] LABS: HEMOGLOBIN 11.4 g/dL (11.0-16.0); MEAN CELL VOLUME 88.4 fL (81.0-99.0); MEAN CORPUSCULAR HEMOGLOBIN 29.1 pg (27.0-31.0); MEAN CORPUSCULAR HGB CONC 32.9 g/dL (33.0-37.0); MEAN PLATELET VOLUME 9.9 fL (7.2-11.7); RBC 3.92 Mil/uL (3.80-5.20); RED CELL DISTRIBUTION WIDTH 17.5 % (11.5-14.5); WHITE BLOOD COUNT 9.1 K/uL (4.8-10.8)
[2017-10-08 09:22] LABS: ALB/GLOB RATIO 1.1 (1.0-2.1); ALBUMIN 3.6 g/dL (3.5-5.0); CALCIUM 9.6 mg/dl (8.6-10.4)
[2017-10-08] MEDS: (Novolin R) Insulin Human Regular 100 units/ml vial SC SCH ×4 (09:25→21:50)
[2017-10-08] MEDS: Pantoprazole 40 mg EC Tab PO SCH (09:27)
[2017-10-08] MEDS: (Novolog) Insulin Aspart, Recombinant 100 u/ml 10 ml vial SC SCH ×2 (09:30→21:51)
[2017-10-08] MEDS: Tramadol 25 mg PO SCH ×2 (09:51→23:36)
[2017-10-08] MEDS ORDERED: Influenza Vaccine 60 mcg/0.5 mL SYR (4YR UP) IM ONE (10:00)
--- NOTE | 2017-10-08 11:14 | RAD ---
PROCEDURE: Bilateral shoulder radiographs dated 10/08/2017 HISTORY: Shoulder pain COMPARISON: No prior studies available for comparison FINDINGS: Current study reveals no evidence of acute displaced fracture nor dislocation. The osseous structures intact. Degenerative changes both shoulder girdles. There is high-riding left humeral head suggesting underlying chronic rotator cuff tear. IMPRESSION: No evidence of acute displaced fracture nor dislocation. Degenerative osteoarthritis both shoulders. High-riding left humeral head suggesting underlying chronic rotator cuff tear.
--- NOTE | 2017-10-08 17:00 | CP.PCM.PN ---
Subjective - Date & Time of Evaluation Date of Evaluation: 10/08/17 Time of Evaluation: 13:00 - Subjective Subjective: renal follow up note no events overnight still complains of knee pain PE: vitals reviewed ao times 3 nad heent normal s1s2 present no resp distress abd soft skin normal knees edema+ normal affect A&P: ESRD/HTN/Knee pain/sec hyperpth hd mwf, continue per schedule lytes reviewed anemia epo with hd continue renvela, monitor phos levels rheum consulted for knee pain ? arthritis bp resume home meds Objective - Vital Signs/Intake and Output Vital Signs (last 24 hours): Temp Pulse Resp BP Pulse Ox 98.3 F 122 H 20 113/73 100 10/08/17 09:00 10/08/17 09:00 10/08/17 09:00 10/08/17 09:50 10/08/17 09:00 Intake and Output: 10/08/17 10/08/17 06:59 18:59 Intake Total 480 Balance 480 - Medications Medications: Current Medications Acetaminophen (Tylenol 325mg Tab) 650 mg PO Q8 [facility] Last Admin: 10/08/17 16:35 Dose: Not Given Albuterol/Ipratropium (Duoneb 3 Mg/0.5 Mg (3 Ml) Ud) 3 ml INH RQ6 PRN PRN Reason: Shortness of Breath Aspirin (Aspirin Chewable) 81 mg PO DAILY [facility] Last Admin: 10/08/17 09:28 Dose: 81 mg Carvedilol (Coreg) 12.5 mg PO BID [facility] Last Admin: 10/08/17 09:50 Dose: 12.5 mg Docusate Sodium (Colace) 100 mg PO BID [facility] Last Admin: 10/08/17 09:27 Dose: 100 mg Epoetin Lobo (Procrit) 3,000 unit IV MWF [facility] Last Admin: 10/07/17 12:32 Dose: 3,000 unit Epoetin Lobo (Procrit) 3,000 u IV MWF [facility] Heparin Sodium (Porcine) (Heparin) 5,000 units SC Q8 [facility] Last Admin: 10/08/17 14:38 Dose: 5,000 units Hydralazine HCl (Apresoline) 50 mg PO TID [facility] Last Admin: 10/08/17 14:38 Dose: 50 mg Insulin Aspart (Novolog) 5 unit SC QAM [facility] Last Admin: 10/08/17 09:30 Dose: 5 unit Insulin Aspart (Novolog) 5 unit SC HS [facility] Last Admin: 10/07/17 21:59 Dose: 5 unit Insulin Human Regular (Novolin R) 0 unit SC ACHS [facility] PRN Reason: Protocol Last Admin: 10/08/17 12:20 Dose: 1 unit Isosorbide Mononitrate (Imdur Er) 60 mg PO 0900 [facility] Last Admin: 10/08/17 09:27 Dose: 60 mg Levothyroxine Sodium (Synthroid) 100 mcg PO DAILY@0630 [facility] Last Admin: 10/08/17 06:24 Dose: 100 mcg Lisinopril (Zestril) 20 mg PO DAILY [facility] Last Admin: 10/08/17 09:50 Dose: 20 mg Magnesium Hydroxide (Milk Of Magnesia) 30 ml PO [facility] Last Admin: 10/07/17 22:00 Dose: Not Given Montelukast Sodium (Singulair) 10 mg PO DAILY [facility] Last Admin: 10/08/17 09:27 Dose: 10 mg Pantoprazole Sodium (Protonix Ec Tab) 40 mg PO DAILY [facility] Last Admin: 10/08/17 09:27 Dose: 40 mg Sevelamer Carbonate (Renvela) 2,400 mg PO TIDCC [facility] Last Admin: 10/08/17 12:16 Dose: 2,400 mg Tramadol HCl (Ultram) 25 mg PO Q12 [facility] Last Admin: 10/08/17 09:51 Dose: 25 mg - Labs Labs: 10/08/17 08:48 10/08/17 08:48
[2017-10-08 19:16] LABS: ANTI SREPTOLYSIN O NEGATIVE (NEGATIVE)
[2017-10-08] MEDS: Magnesium Hydroxide Susp 30 ml UD PO SCH (21:50)
--- NOTE | 2017-10-09 00:01 | CP.PCM.PN ---
Subjective - Date & Time of Evaluation Date of Evaluation: 10/08/17 Time of Evaluation: 17:05 - Subjective Subjective: Patient seen & evaluated at bedside,Pt has decreased knee pain, no sob, nuasea, vomitting, no fever, chills Objective - Vital Signs/Intake and Output Vital Signs (last 24 hours): Temp Pulse Resp BP Pulse Ox 97.4 F L 114 H 20 115/66 97 10/08/17 17:04 10/08/17 17:04 10/08/17 17:04 10/08/17 17:59 10/08/17 17:04 Intake and Output: 10/08/17 10/09/17 18:59 06:59 Intake Total 500 350 Balance 500 350 - Medications Medications: Current Medications Acetaminophen (Tylenol 325mg Tab) 650 mg PO Q8 [facility] Last Admin: 10/08/17 21:52 Dose: 650 mg Albuterol/Ipratropium (Duoneb 3 Mg/0.5 Mg (3 Ml) Ud) 3 ml INH RQ6 PRN PRN Reason: Shortness of Breath Aspirin (Aspirin Chewable) 81 mg PO DAILY [facility] Last Admin: 10/08/17 09:28 Dose: 81 mg Carvedilol (Coreg) 12.5 mg PO BID [facility] Last Admin: 10/08/17 17:59 Dose: 12.5 mg Docusate Sodium (Colace) 100 mg PO BID [facility] Last Admin: 10/08/17 17:59 Dose: 100 mg Epoetin Lobo (Procrit) 3,000 unit IV MWF [facility] Last Admin: 10/07/17 12:32 Dose: 3,000 unit Epoetin Lobo (Procrit) 3,000 u IV [facility]dral[place] HCl (Apresoline) 50 mg PO TID [facility] Last Admin: 10/08/17 17:59 Dose: 50 mg Insulin Aspart (Novolog) 5 unit SC QAM [facility] Last Admin: 10/08/17 09:30 Dose: 5 unit Insulin Aspart (Novolog) 5 unit SC HS [facility] Last Admin: 10/08/17 21:51 Dose: 5 unit Insulin Human Regular (Novolin R) 0 unit SC ACHS [facility] PRN Reason: Protocol Last Admin: 10/08/17 21:50 Dose: Not Given Isosorbide Mononitrate (Imdur Er) 60 mg PO 0900 [facility] Last Admin: 10/08/17 09:27 Dose: 60 mg Levothyroxine Sodium (Synthroid) 100 mcg PO DAILY@0630 [facility] Last Admin: 10/08/17 06:24 Dose: 100 mcg Lisinopril (Zestril) 20 mg PO DAILY [facility] Last Admin: 10/08/17 09:50 Dose: 20 mg Magnesium Hydroxide (Milk Of Magnesia) 30 ml PO HS [facility] Last Admin: 10/08/17 21:50 Dose: Not Given Montelukast Sodium (Singulair) 10 mg PO DAILY [facility] Last Admin: 10/08/17 09:27 Dose: 10 mg Pantoprazole Sodium (Protonix Ec Tab) 40 mg PO DAILY [facility] Last Admin: 10/08/17 09:27 Dose: 40 mg Sevelamer Carbonate (Renvela) 2,400 mg PO TIDCC [facility] Last Admin: 10/08/17 17:59 Dose: 2,400 mg Tramadol HCl (Ultram) 25 mg PO Q12 [facility] Last Admin: 10/08/17 23:36 Dose: Not Given - Labs Labs: 10/08/17 08:48 10/08/17 08:48 - Constitutional Appears: No Acute Distress - Head Exam Head Exam: ATRAUMATIC, NORMAL INSPECTION, NORMOCEPHALIC - Eye Exam Eye Exam: EOMI, Normal appearance, PERRL Pupil Exam: NORMAL ACCOMODATION, PERRL - Respiratory Exam Respiratory Exam: Clear to Ausculation Bilateral, NORMAL BREATHING PATTERN - Cardiovascular Exam Cardiovascular Exam: REGULAR RHYTHM, +S1, +S2. absent: Murmur - GI/Abdominal Exam GI & Abdominal Exam: Soft, Normal Bowel Sounds. absent: Tenderness - Neurological Exam Neurological Exam: Alert, Awake, CN II-XII Intact, Normal Gait, Oriented x3 - Psychiatric Exam Psychiatric exam: Normal Affect, Normal Mood Assessment and Plan (1) Dyspnea Status: Acute (2) Difficulty walking Status: Acute (3) ESRD on hemodialysis Status: Acute (4) Arthritis Status: Acute (5) Diabetes mellitus Status: Chronic (6) Hyperlipidemia Status: Chronic (7) Hypertension Status: Chronic - Assessment and Plan (Free Text) Plan: medical management monitor pt
[2017-10-09] MEDS: Levothyroxine 100 MCG TAB PO SCH (05:30)
[2017-10-09] MEDS: (Novolin R) Insulin Human Regular 100 units/ml vial SC SCH ×4 (08:01→21:44)
[2017-10-09] MEDS: Pantoprazole 40 mg EC Tab PO SCH (09:30)
[2017-10-09] MEDS: Tramadol 25 mg PO SCH ×2 (09:30→21:54)
[2017-10-09] MEDS: (Novolog) Insulin Aspart, Recombinant 100 u/ml 10 ml vial SC SCH ×2 (09:32→21:45)
--- NOTE | 2017-10-09 11:59 | CP.PCM.PN ---
Subjective - Date & Time of Evaluation Date of Evaluation: 10/09/17 Time of Evaluation: 12:00 - Subjective Subjective: Pt seen and evalauted at bedside Objective - Vital Signs/Intake and Output Vital Signs (last 24 hours): Temp Pulse Resp BP Pulse Ox 97.8 F 82 20 114/77 100 10/09/17 08:00 10/09/17 10:58 10/09/17 08:00 10/09/17 09:43 10/09/17 08:00 Intake and Output: 10/09/17 10/09/17 06:59 18:59 Intake Total 350 Balance 350 - Medications Medications: Current Medications Acetaminophen (Tylenol 325mg Tab) 650 mg PO Q8 [facility] Last Admin: 10/09/17 05:30 Dose: 650 mg Albuterol/Ipratropium (Duoneb 3 Mg/0.5 Mg (3 Ml) Ud) 3 ml INH RQ6 PRN PRN Reason: Shortness of Breath Aspirin (Aspirin Chewable) 81 mg PO DAILY [facility] Last Admin: 10/09/17 09:30 Dose: 81 mg Carvedilol (Coreg) 12.5 mg PO BID [facility] Last Admin: 10/09/17 09:43 Dose: 12.5 mg Docusate Sodium (Colace) 100 mg PO BID [facility] Last Admin: 10/09/17 09:30 Dose: 100 mg Epoetin Lobo (Procrit) 3,000 unit IV MWF [facility] Last Admin: 10/07/17 12:32 Dose: 3,000 unit Epoetin Lobo (Procrit) 3,000 u IV [facility] [place] Hydralazine HCl (Apresoline) 50 mg PO TID [facility] Last Admin: 10/09/17 09:30 Dose: 50 mg Insulin Aspart (Novolog) 5 unit SC QAM [facility] Last Admin: 10/09/17 09:32 Dose: 5 unit Insulin Aspart (Novolog) 5 unit SC HS [facility] Last Admin: 10/08/17 21:51 Dose: 5 unit Insulin Human Regular (Novolin R) 0 unit SC ACHS [facility] PRN Reason: Protocol Last Admin: 10/09/17 08:01 Dose: Not Given Isosorbide Mononitrate (Imdur Er) 60 mg PO 0900 [facility] Last Admin: 10/09/17 09:30 Dose: 60 mg Levothyroxine Sodium (Synthroid) 100 mcg PO DAILY@0630 [facility] Last Admin: 10/09/17 05:30 Dose: 100 mcg Lisinopril (Zestril) 20 mg PO DAILY [facility] Last Admin: 10/09/17 09:43 Dose: 20 mg Magnesium Hydroxide (Milk Of Magnesia) 30 ml PO HS [facility] Last Admin: 10/08/17 21:50 Dose: Not Given Montelukast Sodium (Singulair) 10 mg PO DAILY [facility] Last Admin: 10/09/17 09:30 Dose: 10 mg Pantoprazole Sodium (Protonix Ec Tab) 40 mg PO DAILY [facility] Last Admin: 10/09/17 09:30 Dose: 40 mg Sevelamer Carbonate (Renvela) 2,400 mg PO TIDCC [facility] Last Admin: 10/09/17 08:00 Dose: 2,400 mg Tramadol HCl (Ultram) 25 mg PO Q12 [facility] Last Admin: 10/09/17 09:30 Dose: 25 mg - Labs Labs: 10/08/17 08:48 10/08/17 08:48 Assessment and Plan (1) Dyspnea Status: Acute (2) Difficulty walking Status: Acute (3) ESRD on hemodialysis Status: Acute (4) Arthritis Status: Acute (5) Diabetes mellitus Status: Chronic (6) Hyperlipidemia Status: Chronic (7) Hypertension Status: Chronic
--- NOTE | 2017-10-09 13:28 | CP.PCM.CON ---
History of Present Illness - History of Present Illness History of Present Illness: 62 year old female who is on dialysis admitted thru the ER complaining of severe bilateral shoulder and knee pain with progressive swelling. She describes the pain as intense. Past history includes end stage renal disease, hypertension, diabetes mellitus, congestive heart failure, broncial asthma, and sleep apnea. Patient suffered a CVA in 2010. Laboratory studies and x-rays were ordered 3 days ago. Results reveal a sedimentation rare of 45, CRP 15, ASO negative. RA factor, HARSH with titer and anti CCP pending. X-rays of the knees reveal advanced osteoarthritis. X;rays of the shoulders reveal degenerative arthritis of both shoulders and possible chronic left shoulder rotator culf tear. MRI of the left shoulder requested. Review of Systems - Cardiovascular Cardiovascular: Dyspnea on Exertion, Pedal Edema - Reproductive: Female Reproductive:Female: Post Menopausal - Musculoskeletal Musculoskeletal: Arthralgias - Integumentary Integumentary: Dry Skin - Psychiatric Psychiatric: Depression Past Patient History - Infectious Disease Hx of Infectious Diseases: None - Tetanus Immunizations Tetanus Immunization: Unknown - Past Medical History & Family History Past Medical History?: Yes - Past Social History Smoking Status: Never Smoked Chewing Tobacco Use: No Cigar Use: No Alcohol: None - CARDIAC Hx Hypercholesterolemia: Yes Hx Hypertension: Yes - PULMONARY Hx Asthma: Yes Hx Sleep Apnea: Yes - NEUROLOGICAL HX Cerebrovascular Accident: Yes (CVA c R hemiparesis 2010) - HEENT Hx HEENT Problems: Yes Other/Comment: uses eyeglasses - RENAL Hx Renal Failure: Yes (ESRD, CKD) - ENDOCRINE/METABOLIC Hx Diabetes Mellitus Type 2: Yes Hx Hypothyroidism: Yes - HEMATOLOGICAL/ONCOLOGICAL Hx Anemia: Yes - INTEGUMENTARY Hx Dermatological Problems: Yes (SEE COMMENT) Other/Comment: LEFT UPPER ARM AV SHUNT - MUSCULOSKELETAL/RHEUMATOLOGICAL Hx Arthritis: Yes (L KNEE; R SH) - GASTROINTESTINAL Hx Gastritis: Yes - GENITOURINARY/GYNECOLOGICAL Hx Genitourinary Disorders: Yes (She has [facility] BSO) Other/Comment: ESRD - PSYCHIATRIC Hx Depression: Yes Hx Substance Use: No - SURGICAL HISTORY Hx Cholecystectomy: Yes - ANESTHESIA Hx Anesthesia: Yes Hx Anesthesia Reactions: No Hx Malignant Hyperthermia: No Meds Allergies/Adverse Reactions: Allergies Allergy/AdvReac Type Severity Reaction Status Date / Time No Known Allergies Allergy Verified 10/05/17 13:38 - Medications Medications: Current Medications Acetaminophen (Tylenol 325mg Tab) 650 mg PO Q8 [facility] Last Admin: 10/09/17 05:30 Dose: 650 mg Albuterol/Ipratropium (Duoneb 3 Mg/0.5 Mg (3 Ml) Ud) 3 ml INH RQ6 PRN PRN Reason: Shortness of Breath Aspirin (Aspirin Chewable) 81 mg PO DAILY [facility] Last Admin: 10/09/17 09:30 Dose: 81 mg Carvedilol (Coreg) 12.5 mg PO BID [facility] Last Admin: 10/09/17 09:43 Dose: 12.5 mg Docusate Sodium (Colace) 100 mg PO BID [facility] Last Admin: 10/09/17 09:30 Dose: 100 mg Epoetin Lobo (Procrit) 3,000 unit IV F [facility] Last Admin: 10/07/17 12:32 Dose: 3,000 unit Epoetin Lobo (Procrit) 3,000 u IV [facility] [place] Hydralazine HCl (Apresoline) 50 mg PO TID [facility] Last Admin: 10/09/17 09:30 Dose: 50 mg [facility]ulin [facility]art ([facility]) [facility] Admin: 10/09/17 09:32 Dose: 5 unit Insulin Aspart (Novolog) 5 unit SC HS [facility] Last Admin: 10/08/17 21:51 Dose: 5 unit Insulin Human Regular (Novolin R) 0 unit SC [facility] PRN Reason: Protocol Last Admin: 10/09/17 12:15 Dose: Not Given Isosorbide Mononitrate (Imdur Er) 60 mg PO 0900 [facility] Last Admin: 10/09/17 09:30 Dose: 60 mg Levothyroxine Sodium (Synthroid) 100 mcg PO DAILY@0630 [facility] Last Admin: 10/09/17 05:30 Dose: 100 mcg Lisinopril (Zestril) 20 mg PO DAILY [facility] Last Admin: 10/09/17 09:43 Dose: 20 mg Magnesium Hydroxide (Milk Of Magnesia) 30 ml PO HS [facility] Last Admin: 10/08/17 21:50 Dose: Not Given Montelukast Sodium (Singulair) 10 mg PO DAILY [facility] Last Admin: 10/09/17 09:30 Dose: 10 mg Pantoprazole Sodium (Protonix Ec Tab) 40 mg PO DAILY [facility] Last Admin: 10/09/17 09:30 Dose: 40 mg Sevelamer Carbonate (Renvela) 2,400 mg PO TIDCC [facility] Last Admin: 10/09/17 12:10 Dose: 2,400 mg Tramadol HCl (Ultram) 25 mg PO Q12 [facility] Last Admin: 10/09/17 09:30 Dose: 25 mg Physical Exam - Constitutional Appears: Chronically Ill - Head Exam Head Exam: NORMOCEPHALIC - Eye Exam Eye Exam: PERRL Pupil Exam: NORMAL ACCOMODATION - Neck Exam Neck exam: Positive for: Normal Inspection - Respiratory Exam Respiratory Exam: Decreased Breath Sounds - Cardiovascular Exam Cardiovascular Exam: REGULAR RHYTHM - GI/Abdominal Exam GI & Abdominal Exam: Normal Bowel Sounds - Exam External exam: NORMAL EXTERNAL EXAM - Extremities Exam Extremities exam: Positive for: joint swelling - Back Exam Back exam: paraspinal tenderness - Neurological Exam Neurological exam: Oriented x3 - Psychiatric Exam Psychiatric exam: Depressed - Skin Skin Exam: Dry Results - Vital Signs Recent Vital Signs: Last Vital Signs Temp 97.8 F 10/09/17 08:00 Pulse 82 10/09/17 10:58 Resp 20 10/09/17 08:00 BP 114/77 10/09/17 09:43 Pulse Ox 100 10/09/17 08:00 - Labs Result Diagrams: 10/08/17 08:48 10/08/17 08:48 Labs: Laboratory Results - last 24 hr 10/08/17 10/08/17 10/08/17 08:48 12:07 16:24 POC Glucose (mg/dL) 153 H 167 H Anti-Staphylolysin O Negative 10/08/17 10/09/17 10/09/17 21:46 07:24 11:52 POC Glucose (mg/dL) 204 H 120 H 126 H Anti-Staphylolysin O Assessment & Plan (1) Rotator cuff arthropathy of left shoulder Status: Acute (2) Difficulty walking Status: Acute (3) ESRD on hemodialysis Status: Acute (4) Arthritis Status: Acute (5) Diabetes mellitus Status: Chronic (6) History of sleep apnea Status: Chronic (7) Hyperlipidemia Status: Chronic (8) Hypertension Status: Chronic
[2017-10-09] MEDS: Magnesium Hydroxide Susp 30 ml UD PO SCH (21:44)
[2017-10-10] MEDS: Levothyroxine 100 MCG TAB PO SCH (05:40)
[2017-10-10] MEDS: (Novolin R) Insulin Human Regular 100 units/ml vial SC SCH ×4 (07:44→21:56)
[2017-10-10 08:19] LABS: ALB/GLOB RATIO 1.1 (1.0-2.1); ALBUMIN 3.4 g/dL (3.5-5.0); CALCIUM 9.1 mg/dl (8.6-10.4)
[2017-10-10 08:20] LABS: MEAN CELL VOLUME 88.1 fL (81.0-99.0); MEAN CORPUSCULAR HEMOGLOBIN 29.1 pg (27.0-31.0); MEAN PLATELET VOLUME 9.8 fL (7.2-11.7); RBC 3.44 Mil/uL (3.80-5.20); RED CELL DISTRIBUTION WIDTH 17.3 % (11.5-14.5); WHITE BLOOD COUNT 9.2 K/uL (4.8-10.8)
[2017-10-10] MEDS ORDERED: Epoetin Alfa Dialysis 2000 U/ML Inj IV SCH (09:00)
[2017-10-10] MEDS: Pantoprazole 40 mg EC Tab PO SCH (09:16)
[2017-10-10] MEDS: Tramadol 25 mg PO SCH ×2 (09:17→21:49)
[2017-10-10] MEDS: (Novolog) Insulin Aspart, Recombinant 100 u/ml 10 ml vial SC SCH ×2 (09:18→21:58)
--- NOTE | 2017-10-10 11:35 | CP.PCM.PN ---
Subjective - Date & Time of Evaluation Date of Evaluation: 10/10/17 Time of Evaluation: 10:45 - Subjective Subjective: RENAL FOLLOW UP s: no events overnight. complains of shoulder and knee pain PE: vitals reviewed sclera anicteric gen: nad neck supple cv: +S1+s2 lungs cta abd: soft ext: no edema neuro: a+ox3 psych: nml affect ms: + tenderness b/l knees A&P: ESRD/Hypertensive kidney disease/Osteo arthritis/sec hyperpth/ anemia of renal disease/ hyperkalemia/hyponatremia hd mwf- dialysis today bp well controlled f/u rheum eval hyperk should resolve post hd hypona should resolve post hd epo w/ hd continue renvela, phos level ordered for tomorrow imaging reviewed discussed w/ land surveyor Objective - Vital Signs/Intake and Output Vital Signs (last 24 hours): Temp Pulse Resp BP Pulse Ox 97.3 F L 59 L 18 121/65 99 10/10/17 10:30 10/10/17 10:30 10/10/17 10:30 10/10/17 10:45 10/10/17 10:30 Intake and Output: 10/10/17 10/10/17 06:59 18:59 Intake Total 300 Balance 300 - Medications Medications: Current Medications Acetaminophen (Tylenol 325mg Tab) 650 mg PO Q8 [facility] Last Admin: 10/10/17 05:40 Dose: 650 mg Albuterol/Ipratropium (Duoneb 3 Mg/0.5 Mg (3 Ml) Ud) 3 ml INH RQ6 PRN PRN Reason: Shortness of Breath Aspirin (Aspirin Chewable) 81 mg PO DAILY [facility] Last Admin: 10/10/17 09:17 Dose: Not Given Carvedilol (Coreg) 12.5 mg PO BID [facility] Last Admin: 10/10/17 09:17 Dose: Not Given Docusate Sodium (Colace) 100 mg PO BID [facility] Last Admin: 10/10/17 09:16 Dose: 100 mg Epoetin Lobo (Procrit) 3,000 unit IV [facility] [place] Last Admin: 10/07/17 12:32 Dose: 3,000 unit Epoetin Lobo (Procrit) 3,000 u IV [facility] [place] Hydralazine HCl (Apresoline) 50 mg PO TID [facility] Last Admin: 10/10/17 09:17 Dose: Not Given Insulin Aspart (Novolog) 5 unit SC QAM [facility] Last Admin: 10/10/17 09:18 Dose: 5 unit Insulin Aspart (Novolog) 5 unit SC HS [facility] Last Admin: 10/09/17 21:45 Dose: 5 unit Insulin Human Regular (Novolin R) 0 unit SC ACHS [facility] PRN Reason: Protocol Last Admin: 10/10/17 07:44 Dose: Not Given Isosorbide Mononitrate (Imdur Er) 60 mg PO 0900 [facility] Last Admin: 10/10/17 08:12 Dose: 60 mg Levothyroxine Sodium (Synthroid) 100 mcg PO DAILY@0630 [facility] Last Admin: 10/10/17 05:40 Dose: 100 mcg Lisinopril (Zestril) 10 mg PO DAILY [facility] Last Admin: 10/10/17 09:19 Dose: Not Given Magnesium Hydroxide (Milk Of Magnesia) 30 ml PO [facility] Last Admin: 10/09/17 21:44 Dose: Not Given Montelukast Sodium (Singulair) 10 mg PO DAILY [facility] Last Admin: 10/10/17 09:16 Dose: 10 mg Pantoprazole Sodium (Protonix Ec Tab) 40 mg PO DAILY [facility] Last Admin: 10/10/17 09:16 Dose: 40 mg Sevelamer Carbonate (Renvela) 2,400 mg PO TIDCC [facility] Last Admin: 10/10/17 08:12 Dose: 2,400 mg Tramadol HCl (Ultram) 25 mg PO Q12 [facility] Last Admin: 10/10/17 09:17 Dose: 25 mg - Labs Labs: 10/10/17 07:43 10/10/17 07:43
[2017-10-10] MEDS ORDERED: Albumin Human 25% (12.5 gm/50 ml) IV STA (12:00)
[2017-10-10] MEDS: Epoetin Alfa Dialysis 3000 UNIT/ML Inj IV SCH (12:05)
[2017-10-10 19:33] LABS: RNP <1.0 AI (<1.0)
[2017-10-10] MEDS: Magnesium Hydroxide Susp 30 ml UD PO SCH ×2 (21:48→21:56)
--- NOTE | 2017-10-10 22:56 | CP.PCM.PN ---
Subjective - Date & Time of Evaluation Date of Evaluation: 10/10/17 Time of Evaluation: 18:00 - Subjective Subjective: Pt seen and evaluated today, c/o b/l shoulder pain and knee pain, also seen by rhematology, denies any chest pain, coough and shortness of breath Objective - Vital Signs/Intake and Output Vital Signs (last 24 hours): Temp Pulse Resp BP Pulse Ox 97.9 F 71 20 136/78 99 10/10/17 15:00 10/10/17 15:00 10/10/17 15:00 10/10/17 17:45 10/10/17 15:00 Intake and Output: 10/10/17 10/11/17 18:59 06:59 Intake Total 240 250 Balance 240 250 - Medications Medications: Current Medications Acetaminophen (Tylenol 325mg Tab) 650 mg PO TID [facility] Last Admin: 10/10/17 17:47 Dose: 650 mg Aspirin (Aspirin Chewable) 81 mg PO DAILY [facility] Last Admin: 10/10/17 09:17 Dose: Not Given Carvedilol (Coreg) 12.5 mg PO BID [facility] Last Admin: 10/10/17 17:45 Dose: 12.5 mg Docusate Sodium (Colace) 100 mg PO BID [facility] Last Admin: 10/10/17 17:45 Dose: 100 mg Epoetin Lobo (Procrit) 3,000 [place] [facility] [place] Admin: 10/10/17 12:05 Dose: 3,000 unit Epoetin Lobo (Procrit) 3,000 u [place] [facility] [place]dralazine HCl (Apresoline) 50 mg PO TID [facility] Last Admin: 10/10/17 17:45 Dose: 50 mg Insulin Aspart (Novolog) 5 unit SC QAM [facility] Last Admin: 10/10/17 09:18 Dose: 5 unit Insulin Aspart (Novolog) 5 unit SC HS [facility] Last Admin: 10/10/17 21:58 Dose: 5 unit Insulin Human Regular (Novolin R) 0 unit SC ACHS [facility] PRN Reason: Protocol Last Admin: 10/10/17 21:56 Dose: Not Given Isosorbide Mononitrate (Imdur Er) 60 mg PO 0900 [facility] Last Admin: 10/10/17 08:12 Dose: 60 mg Levothyroxine Sodium (Synthroid) 100 mcg PO DAILY@0630 [facility] Last Admin: 10/10/17 05:40 Dose: 100 mcg Lisinopril (Zestril) 10 mg PO DAILY [facility] Last Admin: 10/10/17 09:19 Dose: Not Given Magnesium Hydroxide (Milk Of Magnesia) 30 ml PO HS [facility] Last Admin: 10/10/17 21:56 Dose: 30 ml Montelukast Sodium (Singulair) 10 mg PO DAILY [facility] Last Admin: 10/10/17 09:16 Dose: 10 mg Pantoprazole Sodium (Protonix Ec Tab) 40 mg PO DAILY [facility] Last Admin: 10/10/17 09:16 Dose: 40 mg Sevelamer Carbonate (Renvela) 2,400 mg PO TIDCC [facility] Last Admin: 10/10/17 17:46 Dose: 2,400 mg Tramadol HCl (Ultram) 25 mg PO Q12 [facility] Last Admin: 10/10/17 21:49 Dose: 25 mg - Labs Labs: 10/10/17 07:43 10/10/17 07:43 - Constitutional Appears: No Acute Distress - Head Exam Head Exam: ATRAUMATIC, NORMAL INSPECTION, NORMOCEPHALIC - Eye Exam Eye Exam: EOMI, Normal appearance, PERRL Pupil Exam: NORMAL ACCOMODATION, PERRL - Respiratory Exam Respiratory Exam: Clear to Ausculation Bilateral, NORMAL BREATHING PATTERN - Cardiovascular Exam Cardiovascular Exam: REGULAR RHYTHM, +S1, +S2. absent: Murmur - GI/Abdominal Exam GI & Abdominal Exam: Soft, Normal Bowel Sounds. absent: Tenderness - Rectal Exam Rectal Exam: Deferred Assessment and Plan (1) Dyspnea Status: Acute (2) Difficulty walking Status: Acute (3) ESRD on hemodialysis Status: Acute (4) Arthritis Status: Acute (5) Diabetes mellitus Status: Chronic (6) Hyperlipidemia Status: Chronic (7) Hypertension Status: Chronic
[2017-10-11] MEDS: Levothyroxine 100 MCG TAB PO SCH (05:47)
[2017-10-11] MEDS: (Novolin R) Insulin Human Regular 100 units/ml vial SC SCH ×4 (07:57→22:13)
[2017-10-11] MEDS: Pantoprazole 40 mg EC Tab PO SCH (09:51)
[2017-10-11] MEDS: Tramadol 25 mg PO SCH ×2 (09:52→22:14)
[2017-10-11] MEDS: (Novolog) Insulin Aspart, Recombinant 100 u/ml 10 ml vial SC SCH ×2 (09:53→22:13)
--- NOTE | 2017-10-11 10:33 | CP.PCM.PN ---
Subjective - Date & Time of Evaluation Date of Evaluation: 10/11/17 Time of Evaluation: 10:31 - Subjective Subjective: Patient continued to complain of bilateral shoulder pain and also knees pain. Patient completed hemodialysis yesterday Patient was given ibuprofen and she responded , we will continue to give ibuprofen intermittently Patient already end stage renal disease therefore given Motrin is possible. Objective - Vital Signs/Intake and Output Vital Signs (last 24 hours): Temp Pulse Resp BP Pulse Ox 98.4 F 67 20 143/64 100 10/10/17 23:11 10/10/17 23:11 10/11/17 07:51 10/11/17 09:58 10/11/17 07:51 Intake and Output: 10/11/17 10/11/17 06:59 18:59 Intake Total 250 Balance 250 - Medications Medications: Current Medications Acetaminophen (Tylenol 325mg Tab) 650 mg PO TID [facility] Last Admin: 10/11/17 09:51 Dose: 650 mg Aspirin (Aspirin Chewable) 81 mg PO DAILY [facility] Last Admin: 10/11/17 09:51 Dose: 81 mg Carvedilol (Coreg) 12.5 mg PO BID [facility] Last Admin: 10/11/17 09:58 Dose: 12.5 mg Docusate Sodium (Colace) 100 mg PO BID [facility] Last Admin: 10/11/17 09:54 Dose: Not Given Epoetin Lobo (Procrit) 3,000 unit IV [facility] [place] Last Admin: 10/10/17 12:05 Dose: 3,000 unit Epoetin Lobo (Procrit) 3,000 u IV [facility] Hydralazine HCl (Apresoline) 50 mg PO TID [facility] Last Admin: 10/11/17 09:51 Dose: 50 mg Insulin Aspart (Novolog) 5 unit SC QAM [facility] Last Admin: 10/11/17 09:53 Dose: 5 unit Insulin Aspart (Novolog) 5 unit SC HS [facility] Last Admin: 10/10/17 21:58 Dose: 5 unit Insulin Human Regular (Novolin R) 0 unit SC ACHS [facility] PRN Reason: Protocol Last Admin: 10/11/17 07:57 Dose: Not Given Isosorbide Mononitrate (Imdur Er) 60 mg PO 0900 [facility] Last Admin: 10/11/17 08:17 Dose: 60 mg Levothyroxine Sodium (Synthroid) 100 mcg PO DAILY@0630 [facility] Last Admin: 10/11/17 05:47 Dose: 100 mcg Lisinopril (Zestril) 10 mg PO DAILY [facility] Last Admin: 10/11/17 09:51 Dose: 10 mg Magnesium Hydroxide (Milk Of Magnesia) 30 ml PO HS [facility] Last Admin: 10/10/17 21:56 Dose: 30 ml Montelukast Sodium (Singulair) 10 mg PO DAILY [facility] Last Admin: 10/11/17 09:51 Dose: 10 mg Pantoprazole Sodium (Protonix Ec Tab) 40 mg PO DAILY [facility] Last Admin: 10/11/17 09:51 Dose: 40 mg Sevelamer Carbonate (Renvela) 2,400 mg PO TIDCC [facility] Last Admin: 10/11/17 08:16 Dose: 2,400 mg Tramadol HCl (Ultram) 25 mg PO Q12 [facility] Last Admin: 10/11/17 09:52 Dose: 25 mg - Labs Labs: 10/10/17 07:43 10/10/17 07:43 - Constitutional Appears: No Acute Distress - ENT Exam ENT Exam: Mucous Membranes Moist - Neck Exam Neck Exam: absent: Lymphadenopathy - Respiratory Exam Respiratory Exam: NORMAL BREATHING PATTERN. absent: Chest Wall Tenderness - Cardiovascular Exam Cardiovascular Exam: absent: JVD, Rubs - GI/Abdominal Exam GI & Abdominal Exam: Soft, Normal Bowel Sounds - Extremities Exam Extremities Exam: absent: Calf Tenderness - Back Exam Back Exam: absent: CVA tenderness (L), CVA tenderness (R) - Neurological Exam Neurological Exam: Alert - Skin Skin Exam: absent: Cyanosis Assessment and Plan (1) ESRD on hemodialysis Assessment & Plan: Stage renal disease receiving dialysis Tuesday. Nonspecific arthritis bilateral shoulder and knees Give ibuprofen 400 mg twice a day and see what happens. Short course Status: Acute (2) Hyperkalemia Status: Acute
[2017-10-11] MEDS ORDERED: MethylPREDNISolone Depo 40 mg/ml Inj IM ONE (12:44)
[2017-10-11] MEDS: Magnesium Hydroxide Susp 30 ml UD PO SCH (22:12)
--- NOTE | 2017-10-11 22:42 | CP.PCM.PN ---
Subjective - Date & Time of Evaluation Date of Evaluation: 10/11/17 Time of Evaluation: 13:20 - Subjective Subjective: Patient continues to complain of severe bilateral shoulder stiffness and pain. HARSH and SENIOR SYSTEM OPERATOR negative. RA factor still pending. Usiing sterile technique, both the right and left shoulders were infiltrated with 1/2 cc of depomedrol. Patient tolerated the proceedure well. Suggest volteren gel to both shoulders 3 times a day. D/C oral motrin. Objective - Vital Signs/Intake and Output Vital Signs (last 24 hours): Temp Pulse Resp BP Pulse Ox 98 F 60 20 141/70 98 10/11/17 16:00 10/11/17 16:00 10/11/17 16:00 10/11/17 17:25 10/11/17 16:00 Intake and Output: 10/11/17 10/12/17 18:59 06:59 Intake Total 360 Balance 360 - Medications Medications: Current Medications Aspirin (Aspirin Chewable) 81 mg PO DAILY [facility] Last Admin: 10/11/17 09:51 Dose: 81 mg Carvedilol (Coreg) 12.5 mg PO BID [facility] Last Admin: 10/11/17 17:25 Dose: 12.5 mg Docusate Sodium (Colace) 100 mg PO BID [facility] Last Admin: 10/11/17 17:25 Dose: 100 mg Epoetin Lobo (Procrit) 3,000 unit IV [facility] [place] Last Admin: 10/10/17 12:05 Dose: 3,000 unit Epoetin Lobo (Procrit) 3,000 u IV [facility] [place] Hydralazine HCl (Apresoline) 50 mg PO TID [facility] Last Admin: 10/11/17 17:25 Dose: 50 mg Ibuprofen (Motrin Tab) 400 mg PO BID [facility] Last Admin: 10/11/17 17:25 Dose: 400 mg Insulin Aspart (Novolog) 5 unit SC QAM [facility] Last Admin: 10/11/17 09:53 Dose: 5 unit Insulin Aspart (Novolog) 5 unit SC HS [facility] Last Admin: 10/11/17 22:13 Dose: 5 unit Insulin Human Regular (Novolin R) 0 unit SC ACHS [facility] PRN Reason: Protocol Last Admin: 10/11/17 22:13 Dose: Not Given Isosorbide Mononitrate (Imdur Er) 60 mg PO 0900 [facility] Last Admin: 10/11/17 08:17 Dose: 60 mg Levothyroxine Sodium (Synthroid) 100 mcg PO DAILY@0630 [facility] Last Admin: 10/11/17 05:47 Dose: 100 mcg Lisinopril (Zestril) 10 mg PO DAILY [facility] Last Admin: 10/11/17 09:51 Dose: 10 mg Magnesium Hydroxide (Milk Of Magnesia) 30 ml PO HS [facility] Last Admin: 10/11/17 22:12 Dose: 30 ml Montelukast Sodium (Singulair) 10 mg PO DAILY [facility] Last Admin: 10/11/17 09:51 Dose: 10 mg Pantoprazole Sodium (Protonix Ec Tab) 40 mg PO DAILY [facility] Last Admin: 10/11/17 09:51 Dose: 40 mg Sevelamer Carbonate (Renvela) 2,400 mg PO TIDCC [facility] Last Admin: 10/11/17 17:27 Dose: 2,400 mg Tramadol HCl (Ultram) 25 mg PO Q12 [facility] Last Admin: 10/11/17 22:14 Dose: 25 mg - Labs Labs: 10/10/17 07:43 10/10/17 07:43 - Constitutional Appears: Chronically Ill - Head Exam Head Exam: NORMOCEPHALIC - Eye Exam Eye Exam: Normal appearance Pupil Exam: NORMAL ACCOMODATION - ENT Exam ENT Exam: Normal Exam - Neck Exam Neck Exam: Normal Inspection - Respiratory Exam Respiratory Exam: Decreased Breath Sounds - Cardiovascular Exam Cardiovascular Exam: REGULAR RHYTHM - GI/Abdominal Exam GI & Abdominal Exam: Normal Bowel Sounds - Rectal Exam Rectal Exam: Deferred - Exam External exam: NORMAL EXTERNAL EXAM - Extremities Exam Extremities Exam: Tenderness - Back Exam Back Exam: NORMAL INSPECTION - Neurological Exam Neurological Exam: Oriented x3 - Psychiatric Exam Psychiatric exam: Depressed - Skin Skin Exam: Dry Assessment and Plan (1) Rotator cuff arthropathy of left shoulder Status: Acute (2) Difficulty walking Status: Acute (3) ESRD on hemodialysis Status: Acute (4) Arthritis Status: Acute (5) Diabetes mellitus Status: Chronic (6) History of sleep apnea Status: Chronic (7) Hyperlipidemia Status: Chronic (8) Hypertension Status: Chronic
--- NOTE | 2017-10-11 22:56 | CP.PCM.PN ---
Subjective - Date & Time of Evaluation Date of Evaluation: 10/11/17 Time of Evaluation: 20:40 - Subjective Subjective: pt seen and examined at bedside today Objective - Vital Signs/Intake and Output Vital Signs (last 24 hours): Temp Pulse Resp BP Pulse Ox 98 F 60 20 141/70 98 10/11/17 16:00 10/11/17 16:00 10/11/17 16:00 10/11/17 17:25 10/11/17 16:00 Intake and Output: 10/11/17 10/12/17 18:59 06:59 Intake Total 360 Balance 360 - Medications Medications: Current Medications Aspirin (Aspirin Chewable) 81 mg PO DAILY [facility] Last Admin: 10/11/17 09:51 Dose: 81 mg Carvedilol (Coreg) 12.5 mg PO BID [facility] Last Admin: 10/11/17 17:25 Dose: 12.5 mg Docusate Sodium (Colace) 100 mg PO BID [facility] Last Admin: 10/11/17 17:25 Dose: 100 mg Epoetin Lobo (Procrit) 3,000 unit IV [facility] [place] Last Admin: 10/10/17 12:05 Dose: 3,000 unit Epoetin Lobo (Procrit) 3,000 u IV [facility] [place] Hydralazine HCl (Apresoline) 50 mg PO TID [facility] Last Admin: 10/11/17 17:25 Dose: 50 mg Ibuprofen (Motrin Tab) 400 mg PO BID [facility] Last Admin: 10/11/17 17:25 Dose: 400 mg Insulin Aspart (Novolog) 5 unit SC QAM [facility] Last Admin: 10/11/17 09:53 Dose: 5 unit Insulin Aspart (Novolog) 5 unit SC HS [facility] Last Admin: 10/11/17 22:13 Dose: 5 unit Insulin Human Regular (Novolin R) 0 unit SC ACHS [facility] PRN Reason: Protocol Last Admin: 10/11/17 22:13 Dose: Not Given Isosorbide Mononitrate (Imdur Er) 60 mg PO 0900 [facility] Last Admin: 10/11/17 08:17 Dose: 60 mg Levothyroxine Sodium (Synthroid) 100 mcg PO DAILY@0630 [facility] Last Admin: 10/11/17 05:47 Dose: 100 mcg Lisinopril (Zestril) 10 mg PO DAILY [facility] Last Admin: 10/11/17 09:51 Dose: 10 mg Magnesium Hydroxide (Milk Of Magnesia) 30 ml PO HS [facility] Last Admin: 10/11/17 22:12 Dose: 30 ml Montelukast Sodium (Singulair) 10 mg PO DAILY [facility] Last Admin: 10/11/17 09:51 Dose: 10 mg Pantoprazole Sodium (Protonix Ec Tab) 40 mg PO DAILY [facility] Last Admin: 10/11/17 09:51 Dose: 40 mg Sevelamer Carbonate (Renvela) 2,400 mg PO TIDCC [facility] Last Admin: 10/11/17 17:27 Dose: 2,400 mg Tramadol HCl (Ultram) 25 mg PO Q12 [facility] Last Admin: 10/11/17 22:14 Dose: 25 mg - Labs Labs: 10/10/17 07:43 10/10/17 07:43 Assessment and Plan (1) Dyspnea Status: Acute (2) Difficulty walking Status: Acute (3) ESRD on hemodialysis Status: Acute (4) Arthritis Status: Acute (5) Diabetes mellitus Status: Chronic (6) Hyperlipidemia Status: Chronic (7) Hypertension Status: Chronic
[2017-10-12] MEDS: Levothyroxine 100 MCG TAB PO SCH (06:12)
[2017-10-12] MEDS: (Novolin R) Insulin Human Regular 100 units/ml vial SC SCH ×3 (08:21→16:30)
[2017-10-12] MEDS: (Novolog) Insulin Aspart, Recombinant 100 u/ml 10 ml vial SC SCH (10:19)
[2017-10-12] MEDS: Pantoprazole 40 mg EC Tab PO SCH (10:20)
[2017-10-12] MEDS: Tramadol 25 mg PO SCH (10:20)
--- NOTE | 2017-10-12 13:57 | CP.PCM.PN ---
Subjective - Date & Time of Evaluation Date of Evaluation: 10/12/17 Time of Evaluation: 13:54 - Subjective Subjective: Patient and bed appears to be comfortable Patient complaint of less shoulder pain No nausea no vomiting Appetite okay Objective - Vital Signs/Intake and Output Vital Signs (last 24 hours): Temp Pulse Resp BP Pulse Ox 97.6 F 61 20 155/71 H 100 10/12/17 08:04 10/12/17 08:04 10/12/17 08:04 10/12/17 08:04 10/12/17 08:04 Intake and Output: 10/12/17 10/12/17 06:59 18:59 Intake Total 240 Balance 240 - Medications Medications: Current Medications Aspirin (Aspirin Chewable) 81 mg PO DAILY [facility] Last Admin: 10/12/17 10:20 Dose: 81 mg Carvedilol (Coreg) 12.5 mg PO BID [facility] Last Admin: 10/12/17 10:05 Dose: Not Given Docusate Sodium (Colace) 100 mg PO BID [facility] Last Admin: 10/12/17 10:23 Dose: Not Given Epoetin Lobo (Procrit) 3,000 unit [place] [facility] Last Admin: 10/10/17 12:05 Dose: 3,000 unit Epoetin Lobo (Procrit) 3,000 u [place] [facility] Hydralazine HCl (Apresoline) 50 mg PO TID [facility] Last Admin: 10/12/17 10:05 Dose: Not Given Insulin Aspart (Novolog) 5 unit SC QAM [facility] Last Admin: 10/12/17 10:19 Dose: 5 unit Insulin Aspart (Novolog) 5 unit SC HS [facility] Last Admin: 10/11/17 22:13 Dose: 5 unit Insulin Human Regular (Novolin R) 0 unit SC ACHS [facility] PRN Reason: Protocol Last Admin: 10/12/17 12:30 Dose: 1 unit Isosorbide Mononitrate (Imdur Er) 60 mg PO 0900 [facility] Last Admin: 10/12/17 08:34 Dose: 60 mg Levothyroxine Sodium (Synthroid) 100 mcg PO DAILY@0630 [facility] Last Admin: 10/12/17 06:12 Dose: 100 mcg Lisinopril (Zestril) 10 mg PO DAILY [facility] Last Admin: 10/12/17 10:21 Dose: Not Given Magnesium Hydroxide (Milk Of Magnesia) 30 ml PO HS [facility] Last Admin: 10/11/17 22:12 Dose: 30 ml Montelukast Sodium (Singulair) 10 mg PO DAILY [facility] Last Admin: 10/12/17 10:20 Dose: 10 mg Pantoprazole Sodium (Protonix Ec Tab) 40 mg PO DAILY [facility] Last Admin: 10/12/17 10:20 Dose: 40 mg Sevelamer Carbonate (Renvela) 2,400 mg PO TIDCC [facility] Last Admin: 10/12/17 12:38 Dose: 2,400 mg Tramadol HCl (Ultram) 25 mg PO Q12 [facility] Last Admin: 10/12/17 10:20 Dose: 25 mg - Labs Labs: 10/10/17 07:43 10/10/17 07:43 - Constitutional Appears: No Acute Distress - ENT Exam ENT Exam: Mucous Membranes Moist - Respiratory Exam Respiratory Exam: Chest Wall Tenderness, NORMAL BREATHING PATTERN - Cardiovascular Exam Cardiovascular Exam: REGULAR RHYTHM. absent: Rubs - GI/Abdominal Exam GI & Abdominal Exam: Soft, Normal Bowel Sounds - Extremities Exam Extremities Exam: absent: Calf Tenderness - Back Exam Back Exam: absent: CVA tenderness (L), CVA tenderness (R) - Neurological Exam Neurological Exam: Alert - Skin Skin Exam: Normal Color Assessment and Plan (1) ESRD on hemodialysis Assessment & Plan: End stage renal disease receiving dialysis MWF Scheduled to have dialysis now Patient was given an injection in both shoulders and she is feeling somewhat better The rest of the medical problem as noted Dialysis data has been discussed with the dialysis nurse including sodium bath 138 Potassium bath 2 mEq Bicarbonate 34 Ultrafiltration about 1500 mL Status: Acute (2) Hyperkalemia Status: Acute
--- NOTE | 2017-10-12 15:30 | CP.PCM.PN ---
Subjective - Date & Time of Evaluation Date of Evaluation: 10/12/17 Time of Evaluation: 15:31 - Subjective Subjective: Alert and orientedx3, denies acute pain or distress. Objective - Vital Signs/Intake and Output Vital Signs (last 24 hours): Temp Pulse Resp BP Pulse Ox 97.6 F 61 20 155/71 H 100 10/12/17 08:04 10/12/17 08:04 10/12/17 08:04 10/12/17 08:04 10/12/17 08:04 Intake and Output: 10/12/17 10/12/17 06:59 18:59 Intake Total 600 Balance 600 - Medications Medications: Current Medications Aspirin (Aspirin Chewable) 81 mg PO DAILY [facility] Last Admin: 10/12/17 10:20 Dose: 81 mg Carvedilol (Coreg) 12.5 mg PO BID [facility] Last Admin: 10/12/17 10:05 Dose: Not Given Docusate Sodium (Colace) 100 mg PO BID [facility] Last Admin: 10/12/17 10:23 Dose: Not Given Epoetin Lobo (Procrit) 3,000 [place] [facility] Last Admin: 10/10/17 12:05 Dose: 3,000 unit Epoetin Lobo (Procrit) 3,000 u [place] [facility] Hydralazine HCl (Apresoline) 50 mg PO TID [facility] Last Admin: 10/12/17 14:24 Dose: Not Given Insulin Aspart (Novolog) [facility] Last Admin: 10/12/17 10:19 Dose: 5 unit Insulin Aspart (Novolog) 5 unit SC [facility] Last Admin: 10/11/17 22:13 Dose: 5 unit Insulin Human Regular (Novolin R) 0 unit SC [facility] PRN Reason: Protocol Last Admin: 10/12/17 12:30 Dose: 1 unit Isosorbide Mononitrate (Imdur Er) 60 mg PO 0900 [facility] Last Admin: 10/12/17 08:34 Dose: 60 mg Levothyroxine Sodium (Synthroid) 100 mcg PO DAILY@0630 [facility] Last Admin: 10/12/17 06:12 Dose: 100 mcg Lisinopril (Zestril) 10 mg PO DAILY [facility] Last Admin: 10/12/17 10:21 Dose: Not Given Magnesium Hydroxide (Milk Of Magnesia) 30 ml PO [facility] Last Admin: 10/11/17 22:12 Dose: 30 ml Montelukast Sodium (Singulair) 10 mg PO DAILY [facility] Last Admin: 10/12/17 10:20 Dose: 10 mg Pantoprazole Sodium (Protonix Ec Tab) 40 mg PO DAILY [facility] Last Admin: 10/12/17 10:20 Dose: 40 mg Sevelamer Carbonate (Renvela) 2,400 mg PO TIDCC [facility] Last Admin: 10/12/17 12:38 Dose: 2,400 mg Tramadol HCl (Ultram) 25 mg PO Q12 [facility] Last Admin: 10/12/17 10:20 Dose: 25 mg - Labs Labs: 10/10/17 07:43 10/10/17 07:43 Assessment and Plan - Assessment and Plan (Free Text) Assessment: Patient is seen and examined. Alert and orientedx3, able to walk to the bath room. Denies acute pain or distress. She expressed that she wants to go home instead of rehab. Discussed with DR Gamboa, plan to discharge hometoday on present pain meds. Home care and home physical therapy arranged. Advised to follow up with PMD in 1 week. Transportation arranged for home after HD.
[2017-10-12 15:39] VITALS: TEMP 97.7
[2017-10-12 15:42] VITALS: O2SAT 98
[2017-10-12] MEDS ORDERED: Epoetin Alfa Dialysis 2000 U/ML Inj IV SCH (15:45)
[2017-10-12 19:22] VITALS: BP 158/73; PULSE 60; RESP 18
--- NOTE | 2017-10-12 23:39 | CP.PCM.DIS ---
Provider - Provider Date of Admission: 10/07/17 16:43 Attending physician: Rohit Gamboa MD Diagnosis - Discharge Diagnosis (1) Dyspnea Status: Acute (2) Difficulty walking Status: Acute (3) ESRD on hemodialysis Status: Acute (4) Arthritis Status: Acute (5) Diabetes mellitus Status: Chronic (6) Hyperlipidemia Status: Chronic (7) Hypertension Status: Chronic Hospital Course - Lab Results Lab Results: Most Recent Lab Values WBC 9.2 K/uL (4.8-10.8) 10/10/17 07:43 RBC 3.44 Mil/uL (3.80-5.20) L 10/10/17 07:43 Hgb 10.0 g/dL (11.0-16.0) L 10/10/17 07:43 Hct 30.3 % (34.0-47.0) L 10/10/17 07:43 MCV 88.1 fL (81.0-99.0) 10/10/17 07:43 MCH 29.1 pg (27.0-31.0) 10/10/17 07:43 MCHC 33.0 g/dL (33.0-37.0) 10/10/17 07:43 RDW 17.3 % (11.5-14.5) H 10/10/17 07:43 Plt Count 179 K/uL (130-400) 10/10/17 07:43 MPV 9.8 fL (7.2-11.7) 10/10/17 07:43 Neut % (Auto) 58.9 % (50.0-75.0) 10/05/17 16:33 Lymph % (Auto) 28.2 % (20.0-40.0) 10/05/17 16:33 [place] % (Auto) 8.6 % (0.0-10.0) 10/05/17 16:33 Eos % (Auto) 2.9 % (0.0-4.0) 10/05/17 16:33 Baso % (Auto) 1.4 % (0.0-2.0) 10/05/17 16:33 Neut # (Auto) 6.0 K/uL (1.8-7.0) 10/05/17 16:33 Lymph # (Auto) 2.9 K/uL (1.0-4.3) 10/05/17 16:33 [place] # (Auto) 0.9 K/uL (0.0-0.8) H 10/05/17 16:33 Eos # (Auto) 0.3 K/uL (0.0-0.7) 10/05/17 16:33 Baso # (Auto) 0.1 K/uL (0.0-0.2) 10/05/17 16:33 ESR 45 mm/hr (0-20) H 10/08/17 08:48 Sodium 129 mmol/L (132-148) L 10/10/17 07:43 Potassium 5.7 mmol/L (3.6-5.2) H 10/10/17 07:43 Chloride 90 mmol/L (98-107) L 10/10/17 07:43 Carbon Dioxide 26 mmol/L (22-30) 10/10/17 07:43 Anion Gap 19 (10-20) 10/10/17 07:43 BUN 67 mg/dL (7-17) H 10/10/17 07:43 Creatinine 9.7 mg/dL (0.7-1.2) H* D 10/10/17 07:43 Est GFR ( Amer) 5 10/10/17 07:43 Est GFR (Non-Af Amer) 4 10/10/17 07:43 POC Glucose (mg/dL) 108 mg/dL (65-110) 10/12/17 16:36 Random Glucose 118 mg/dL (65-105) H 10/10/17 07:43 Calcium 9.1 mg/dl (8.6-10.4) 10/10/17 07:43 Phosphorus 4.7 mg/dL (2.5-4.5) H 10/11/17 08:39 Total Bilirubin 0.5 mg/dL (0.2-1.3) 10/10/17 07:43 AST 16 U/L (14-36) 10/10/17 07:43 ALT 14 U/L (9-52) 10/10/17 07:43 Alkaline Phosphatase 127 U/L (38-126) H 10/10/17 07:43 Total Creatine Kinase 37 U/L (30-135) 10/05/17 16:33 Troponin I 0.0250 ng/mL (0.00-0.120) 10/05/17 16:33 C-React Prot High Sens > 15.00 mg/L (1.00-3.00) H 10/08/17 08:48 NT-Pro-B Natriuret Pep 99494 pg/mL (0-900) H 10/05/17 16:33 Total Protein 6.5 g/dL (6.3-8.3) 10/10/17 07:43 Albumin 3.4 g/dL (3.5-5.0) L 10/10/17 07:43 Globulin 3.1 gm/dL (2.2-3.9) 10/10/17 07:43 Albumin/Globulin Ratio 1.1 (1.0-2.1) 10/10/17 07:43 Cycl Citrul Peptide IgG <16 Units (<20) 10/09/17 08:38 HARSH 6 Profile Negative (NEGATIVE) 10/08/17 08:48 REPERTOIRE MANAGER Antibody <1.0 AI (<1.0) 10/08/17 08:48 REPERTOIRE MANAGER Antibody Interp Negative (Negative) 10/08/17 08:48 Anti-Staphylolysin O Negative (NEGATIVE) 10/08/17 08:48 - Hospital Course Hospital Course: Patient is seen and examined. Alert and orientedx3, able to walk to the bath room. Denies acute pain or distress. She expressed that she wants to go home instead of rehab. plan to discharge hometoday on present pain meds. Advised to follow uo with PMD in 1 week. Transportation arranged for after HD. Discharge Exam - Head Exam Head Exam: NORMOCEPHALIC - Eye Exam Eye Exam: EOMI, Normal appearance, PERRL Pupil Exam: NORMAL ACCOMODATION, PERRL - ENT Exam ENT Exam: Mucous Membranes Moist - Respiratory Exam Respiratory Exam: Decreased Breath Sounds - Cardiovascular Exam Cardiovascular Exam: +S1, +S2 - GI/Abdominal Exam GI & Abdominal Exam: Normal Bowel Sounds Discharge Plan - Discharge Medications Prescriptions: Ibuprofen 400 mg PO BID 7 Days tablet Diclofenac Sodium [Voltaren] 100 gm TP BID #1 gel..gram. - Follow Up Plan Condition: STABLE Disposition: HOME/ ROUTINE Instructions: Ibuprofen (By mouth), Dialysis Diet (DC), Hyperkalemia (DC), Dyspnea (GEN), End Stage Kidney Disease (DC) Referrals: Rohit Gamboa MD [Staff Provider] -
== END 2017-10-12 19:43 | DRG 244 ==
LOC: C.ER 13:23 → C.9E 17:27 → C.3T 20:55 → OBSVTOIN 10-07 16:43
PROVIDERS: ADMIT Internal Medicine; ATTEND Internal Medicine
PROC: 5A1D70Z Performance of Urinary Filtration, Intermittent, Less than 6 Hours Per Day (ICD-10-PCS; principal; 2017-10-10)
PROC: 5A1D70Z Performance of Urinary Filtration, Intermittent, Less than 6 Hours Per Day (ICD-10-PCS; 2017-10-12)
DX: M19.011 Primary osteoarthritis, right shoulder (principal); N18.6 End stage renal disease; I13.2 Hypertensive heart and chronic kidney disease with heart failure and with stage 5 chronic kidney disease, or end stage renal disease; E11.22 Type 2 diabetes mellitus with diabetic chronic kidney disease; E87.5 Hyperkalemia; I50.9 Heart failure, unspecified; M19.012 Primary osteoarthritis, left shoulder; Z79.4 Long term (current) use of insulin; Z86.73 Personal history of transient ischemic attack (TIA), and cerebral infarction without residual deficits; Z99.2 Dependence on renal dialysis; J45.909 Unspecified asthma, uncomplicated; G47.30 Sleep apnea, unspecified; E78.5 Hyperlipidemia, unspecified; E03.9 Hypothyroidism, unspecified

== ENCOUNTER 2018-09-18 15:02 | Emergency (ER) | payer OTHER ==
[2018-09-18 16:07] VITALS: BMI 31.8
--- NOTE | 2018-09-18 17:08 | CT ---
Date of service: 09/18/2018 PROCEDURE: CT HEAD WITHOUT CONTRAST. HISTORY: injury COMPARISON: None available. TECHNIQUE: Axial computed tomography images were obtained through the head/brain without intravenous contrast. Radiation dose: Total exam DLP = 1054.66 mGy-cm. This CT exam was performed using one or more of the following dose reduction techniques: Automated exposure control, adjustment of the mA and/or kV according to patient size, and/or use of iterative reconstruction technique. FINDINGS: HEMORRHAGE: No intracranial hemorrhage. BRAIN: Diffuse atrophy with prominence of the ventricles and sulci noted. No mass effect or edema. Intracranial atherosclerosis. Scattered periventricular and subcortical white matter hypodensities, which are nonspecific, but often seen with chronic microvascular ischemic disease. Please note that MRI with diffusion imaging is more sensitive in the detection of acute ischemic event. VENTRICLES: No hydrocephalus. CALVARIUM: Unremarkable. PARANASAL SINUSES: Unremarkable as visualized. No significant inflammatory changes. MASTOID AIR CELLS: Unremarkable as visualized. No inflammatory changes. OTHER FINDINGS: None. IMPRESSION: Moderate nonspecific white matter changes. Please note that MRI with diffusion imaging is more sensitive in the detection of acute ischemic event.
--- NOTE | 2018-09-18 17:16 | RAD ---
Date of service: 09/18/2018 PROCEDURE: Radiographs of the Lumbar Spine. HISTORY: fall COMPARISON: No prior. FINDINGS: BONES: Alignment appears satisfactory. Osseous demineralization limits evaluation for acute fracture lines. 7 mm anterolisthesis of L4 on L5. No acute displaced fracture identified. DISC SPACES: Unremarkable. OTHER FINDINGS: Dense atherosclerotic calcifications of the aorta. Surgical clips are noted in the left pelvis. IMPRESSION: Osseous demineralization. Degenerative changes. 7 mm anterolisthesis of L4 on L5.
--- NOTE | 2018-09-18 18:17 | C.PDOC ---
History Of Present Illness 63 year old female presents to the ED for evaluation. Patient states she was going home when she fell and hit the back of her head and her lower back yesterday. Patient was receiving dialysis today and informed the staff of this incident, and was advised to present to the ED for further evaluation. Patient denies LOC, nausea, vomiting. - HPI Time Seen by Provider: 09/18/18 16:15 Chief Complaint (Nursing): Trauma History Per: Patient History/Exam Limitations: no limitations Onset/Duration Of Symptoms: Hrs Additional History Per: Patient Past Medical History Reviewed: Historical Data, Nursing Documentation, Vital Signs Vital Signs: Last Vital Signs Temp 98.1 F 09/18/18 16:07 Pulse 60 09/18/18 16:07 Resp 20 09/18/18 16:07 BP 157/83 H 09/18/18 16:07 Pulse Ox 98 09/18/18 16:07 - Medical History PMH: Anemia, Arthritis (L KNEE; R SH), Asthma, Cardia Arrhythmia, Depression, Diabetes, Gastritis, HTN, Hypercholesterolemia, Hypothyroidism, End Stage Renal Disease, Chronic Kidney Disease, Sleep Apnea Surgical History: Cholecystectomy - [facility] (10/07/17) DRAINAGE OF VULVA, OPEN APPROACH (11/05/15) EXCIS DEBRIDE OF WOUND, INFECT, OR BURN (11/09/14) HEMODIALYSIS (11/09/14) INCIS PERIANAL ABSCESS (11/09/14) PERFORMANCE OF URINARY FILTRATION, MULTIPLE (05/16/16) PERFORMANCE OF URINARY FILTRATION, SINGLE (11/18/16) Family History: States: Diabetes - Social History Hx Tobacco Use: No Hx Alcohol Use: No Hx Substance Use: No - Immunization History Hx Tetanus Toxoid Vaccination: Yes Hx Influenza Vaccination: No (2015) Hx Pneumococcal Vaccination: Yes (2016) Review Of Systems Gastrointestinal: Negative for: Nausea, Vomiting Musculoskeletal: Positive for: Back Pain (lower) Neurological: Positive for: Other (+head injury, no LOC ) Physical Exam - Physical Exam Appears: Non-toxic, No Acute Distress Skin: Normal Color, Warm, Dry Head: Atraumatic, Normacephalic Eye(s): bilateral: Normal Inspection Oral Mucosa: Moist Neck: Normal ROM, No Midline Cervical Tenderness, No Paracervical Tenderness, Supple Chest: Symmetrical, No Deformity, No Tenderness Cardiovascular: Rhythm Regular, No Murmur Respiratory: Normal Breath Sounds, No Rales, No Rhonchi, No Wheezing Back: Other (mild, diffuse to lower back ) Extremity: Normal ROM, Capillary Refill (less than 2 seconds ) Neurological/Psych: Oriented x3, Normal Speech, Normal Cognition ED Course And Treatment O2 Sat by Pulse Oximetry: 98 (on RA) Pulse Ox Interpretation: Normal - Other Rad lumbar spine XR X-Ray: Viewed By Me, Read By Radiologist Interpretation: Date of service: 09/18/2018. PROCEDURE: Radiographs of the Lumbar Spine. HISTORY: fall. COMPARISON: No prior. FINDINGS: BONES: Alignment appears satisfactory. Osseous demineralization limits evaluation for acute fracture lines. 7 mm anterolisthesis of L4 on L5. No acute displaced fracture identified. DISC SPACES: Unremarkable. OTHER FINDINGS: Dense atherosclerotic calcifications of the aorta. Surgical clips are noted in the left pelvis. IMPRESSION: Osseous demineralization. Degenerative changes. 7 mm anterolisthesis of L4 on L5. - CT Scan/US Head CT Other Rad Studies (CT/US): Read By Radiologist, Radiology Report Reviewed CT/US Interpretation: Date of service: 09/18/2018. PROCEDURE: CT HEAD WITHOUT CONTRAST. HISTORY: injury. COMPARISON: None available. TECHNIQUE: Axial computed tomography images were obtained through the head/brain without intravenous contrast. Radiation dose: Total exam DLP = 1054.66 mGy-cm. This CT exam was performed using one or more of the following dose reduction techniques: Automated exposure control, adjustment of the mA and/or kV according to patient size, and/or use of iterative reconstruction technique. FINDINGS: HEMORRHAGE: No intracranial hemorrhage. BRAIN: Diffuse atrophy with prominence of the ventricles and sulci noted. No mass effect or edema. Intracranial atherosclerosis. Scattered periventricular and subcortical white matter hypodensities, which are nonspecific, but often seen with chronic microvascular ischemic disease. Please note that MRI with diffusion imaging is more sensitive in the detection of acute ischemic event. VENTRICLES: No hydrocephalus. CALVARIUM: Unremarkable. PARANASAL SINUSES: Unremarkable as visualized. No significant inflammatory changes. MASTOID AIR CELLS: Unremarkable as visualized. No inflammatory changes. OTHER FINDINGS: None. IMPRESSION: Moderate nonspecific white matter changes. Please note that MRI with diffusion imaging is more sensitive in the detection of acute ischemic event. Progress Note: Lumbar spine XR and CXR ordered and reviewed. Both resulted negative. On reassessment, patient is resting comfortably, showing no signs of distress and is stable for discharge. Patient is advised to follow up with PMD within 1-2 days for further evaluation. Disposition - Disposition Disposition: HOME/ ROUTINE Disposition Time: 18:16 Condition: STABLE Additional Instructions: Follow up with PMD within 1-2 days. Return to ED if feel worse. Prescriptions: traMADol [Ultram] 50 mg PO Q6 #20 tab Instructions: Low Back Pain (DC), Minor Head Injury (DC) Forms: [employer] ([place]) - Clinical Impression Clinical Impression: Minor head injury, Low back strain - PA / BRAKE [employer]ER / Resident Statement MD/DO has reviewed & agrees with the documentation as recorded. - Scribe Statement The provider has reviewed the documentation as recorded by the Scribe ([email or web address] [email or web address]) All medical record entries made by the Scribe were at my direction and personally dictated by me. I have reviewed the chart and agree that the record accurately reflects my personal performance of the history, physical exam, medical decision making, and the department course for this patient. I have also personally directed, reviewed, and agree with the discharge instructions and disposition.
[2018-09-18 18:29] VITALS: BP 171/108; PULSE 98; RESP 18; TEMP 98.6
[2018-09-18 20:29] VITALS: O2SAT 98
== END 2018-09-18 19:30 | disposition home or self-care (01) ==
LOC: C.ER 15:02
DX: S09.90XA Unspecified injury of head, initial encounter (principal); S39.012A Strain of muscle, fascia and tendon of lower back, initial encounter; W18.30XA Fall on same level, unspecified, initial encounter